=== PATIENT | female | born 1960 | race Caucasian/White ===

== ENCOUNTER 2017-12-07 18:48 | Inpatient (IN) | payer MEDICARE, OTHER, SELFPAY ==
[~2017-12-07] VITALS: Ht 165.1 cm; Wt 103.5 kg
[~2017-12-07 18:48] MED LIST: ALBU.083IS IH; ALBU90OI INH; AMIT10 PO; ANTOXYBENA OT; AZIT250 PO; BENZ100A PO; BUDE6HFA INH; CIPDEXSU OT; CLAR500 PO; CODACE30 PO; CRUTCH2 USE; CYMBALTA; Crutch1 EACH MISC; DOXY100 PO; DULO60 PO; ESTR.1TPW TOP; ESTR.9; ESTR.9 PO; FERR325 PO; FLUT110OIA IH; HCTZ PO; HYDACE10B PO; HYDACE5 PO; HYDACE5325 PO; HYDCHL25 PO; LITH300C PO; LOPE2C PO; MELO7.5 PO; NEBI5 PO; NITR100CA PO; Norco 5-325 Ta1 EACH PO; OLAN5 PO; OMEP10ER PO; OMEP20ER PO; OMEPRAZOLE MAGN20 MG PO; OXYACE5T PO; OXYB5 PO; OXYC10TA19 PO; PHENA200 PO; PRED20 PO; PROCODE120 PO; PROM25 PO; PSEU120ER PO; RANI150 PO; SIME80CH PO; TIOT18 INH; TRAM50 PO; ZOLP10 PO; [UNRECOGNIZED DRUG - OTHER]
[2017-12-07 20:04] LABS: BASOPHILS ABSOLUTE AUTO 0.03 K/mm3 (0.00-0.23); BASOPHILS PERCENT AUTO 0 % (0-2); EOSINOPHILS ABSOLUTE AUTO 0.03 K/mm3 (0.00-0.68); EOSINOPHILS PERCENT AUTO 0 % (0-6); Hematocrit 41.4 % (33.0-51.0); Hemoglobin 13.4 g/dL (11.5-16.0); IMMATURE GRAN ABSOLUTE AUTO 0.07 K/mm3 (0.00-0.10); IMMATURE GRAN PERCENT AUTO 1 % (0-1); LYMPHOCYTES ABSOLUTE AUTO 0.89 K/mm3 (0.84-5.20); LYMPHOCYTES PERCENT AUTO 7 % (21-46); MONOCYTES ABSOLUTE AUTO 0.78 K/mm3 (0.16-1.47); MONOCYTES PERCENT AUTO 6 % (4-13); Mean Corpuscular HGB 32.1 pg (26.0-34.0); Mean Corpuscular HGB Conc 32.4 g/dL (31.5-36.5); Mean Corpuscular Volume 99 fL (80-100); Mean Platelet Volume 10.1 fL (9.1-12.4); NEUTROPHILS ABSOLUTE AUTO 11.68 K/mm3 (1.96-9.15); NEUTROPHILS PERCENT AUTO 87 % (41-73); Platelet Count 232 K/mm3 (150-400); RDW Standard Deviation 50.9 fL (35.1-46.3); Red Blood Cell Count 4.17 M/mm3 (3.80-5.20); White Blood Cell Count 13.48 K/mm3 (4.00-11.30)
[2017-12-07 20:27] LABS: Alanine Aminotransfer (ALT/SGP 59 U/L (12-78); Albumin, Blood 3.8 g/dL (3.4-5.0); Albumin/Globulin Ratio 0.9 (0.8-1.8); Alk Phos 68 U/L (50-136); Anion Gap 11 mmol/L (6-16); Aspartate Aminotrans (AST/SGOT 39 U/L (12-37); Bilirubin, Total 0.4 mg/dL (0.1-1.0); Blood Urea Nitrogen 15 mg/dL (8-24); CO2, Blood 23 mmol/L (21-32); Chloride, Blood 103 mmol/L (98-108); Globulin, Blood 4.1 g/dL (2.2-4.0); Glomerular Filtration Rate >60 (60-); Glucose, Blood 130 mg/dL (70-99); Potassium, Blood 3.3 mmol/L (3.5-5.5); Sodium, Blood 137 mmol/L (136-145); Total Protein, Blood 7.9 g/dL (6.4-8.2); Troponin I 0.091 ng/mL (0.000-0.040)
[2017-12-07 22:00] LABS: Troponin I 0.093 ng/mL (0.000-0.040)
[2017-12-08 00:47] LABS: Source, Urine Clean Catch
[2017-12-08 00:52] LABS: Bilirubin, Urine Neg (Neg); Blood, Urine 1+ (Neg); Glucose Qualitative, Urine Neg (Neg); Ketones, Urine Neg (Neg); Leukocyte Esterase, Urine Neg (Neg); Nitrite, Urine Neg (Neg); Protein, Urine 2+ (Neg); Urobilinogen, Urine NORM (Normal)
[2017-12-08 00:58] LABS: Appearance, Urine Clear (Clear); Color, Urine Yellow (P-Yellow)
[2017-12-08 00:59] LABS: Bacteria Few /hpf; Red Blood Cells, Urine 0-2 /hpf (0-2); Squamous Epithelial Cells Not Seen /hpf (Few); White Blood Cells, Urine 0-2 /hpf (0-5)
[2017-12-08 01:03] LABS: U Amphetamine Screen Not Detected; U Barbituate Screen Not Detected; U Benzodiazapine Screen Not Detected; U Buprenorphine Screen Not Detected; U Cannabinoids Screen Not Detected; U Cocaine Screen Not Detected; U Methadone Screen Not Detected; U Methamphetamine Screen Not Detected; U Opiates Screen Not Detected; U Oxycodone Screen Not Detected; U Phencyclidine Screen Not Detected; U Propoxyphene Screen Not Detected
[2017-12-08 03:59] LABS: Hematocrit 41.2 % (33.0-51.0); Hemoglobin 13.6 g/dL (11.5-16.0); Mean Corpuscular HGB 32.4 pg (26.0-34.0); Mean Corpuscular Volume 98 fL (80-100); Mean Platelet Volume 9.9 fL (9.1-12.4); Platelet Count 210 K/mm3 (150-400); RDW Coefficient Variation 14.1 % (11.7-14.2); RDW Standard Deviation 50.8 fL (35.1-46.3); White Blood Cell Count 11.39 K/mm3 (4.00-11.30)
[2017-12-08 04:23] LABS: Alanine Aminotransfer (ALT/SGP 52 U/L (12-78); Albumin, Blood 3.8 g/dL (3.4-5.0); Alk Phos 62 U/L (50-136); Anion Gap 12 mmol/L (6-16); Aspartate Aminotrans (AST/SGOT 34 U/L (12-37); Bilirubin, Total 1.2 mg/dL (0.1-1.0); Blood Urea Nitrogen 14 mg/dL (8-24); Bun/Creatinine Ratio 14.2 (12.0-20.0); CO2, Blood 24 mmol/L (21-32); CPK Creatine Kinase 108 U/L (26-193); Calcium, Blood 8.4 mg/dL (8.5-10.1); Chloride, Blood 101 mmol/L (98-108); Creatinine, Blood 0.99 mg/dL (0.40-1.00); Globulin, Blood 3.8 g/dL (2.2-4.0); Glomerular Filtration Rate >60 (60-); Glucose, Blood 137 mg/dL (70-99); Potassium, Blood 3.6 mmol/L (3.5-5.5); Sodium, Blood 137 mmol/L (136-145); Total Protein, Blood 7.6 g/dL (6.4-8.2)
[2017-12-08 04:24] LABS: Troponin I 0.082 ng/mL (0.000-0.040)
[2017-12-09 08:24] LABS: BASOPHILS ABSOLUTE AUTO 0.03 K/mm3 (0.00-0.23); BASOPHILS PERCENT AUTO 0 % (0-2); EOSINOPHILS ABSOLUTE AUTO 0.04 K/mm3 (0.00-0.68); EOSINOPHILS PERCENT AUTO 0 % (0-6); IMMATURE GRAN ABSOLUTE AUTO 0.04 K/mm3 (0.00-0.10); IMMATURE GRAN PERCENT AUTO 0 % (0-1); LYMPHOCYTES ABSOLUTE AUTO 0.99 K/mm3 (0.84-5.20); LYMPHOCYTES PERCENT AUTO 9 % (21-46); MONOCYTES ABSOLUTE AUTO 0.88 K/mm3 (0.16-1.47); MONOCYTES PERCENT AUTO 8 % (4-13); Mean Corpuscular HGB 33.2 pg (26.0-34.0); Mean Corpuscular HGB Conc 33.3 g/dL (31.5-36.5); Mean Corpuscular Volume 100 fL (80-100); Mean Platelet Volume 10.1 fL (9.1-12.4); NEUTROPHILS ABSOLUTE AUTO 9.21 K/mm3 (1.96-9.15); NEUTROPHILS PERCENT AUTO 82 % (41-73); Platelet Count 208 K/mm3 (150-400); RDW Coefficient Variation 13.5 % (11.7-14.2); RDW Standard Deviation 49.5 fL (35.1-46.3); Red Blood Cell Count 3.92 M/mm3 (3.80-5.20); White Blood Cell Count 11.19 K/mm3 (4.00-11.30)
[2017-12-09 08:40] LABS: Bun/Creatinine Ratio 22.6 (12.0-20.0); Calcium, Blood 8.7 mg/dL (8.5-10.1); Creatinine, Blood 1.06 mg/dL (0.40-1.00); Potassium, Blood 3.5 mmol/L (3.5-5.5)
[2017-12-10 05:27] LABS: BASOPHILS ABSOLUTE AUTO 0.02 K/mm3 (0.00-0.23); BASOPHILS PERCENT AUTO 0 % (0-2); EOSINOPHILS ABSOLUTE AUTO 0.04 K/mm3 (0.00-0.68); EOSINOPHILS PERCENT AUTO 1 % (0-6); Hemoglobin 11.6 g/dL (11.5-16.0); IMMATURE GRAN ABSOLUTE AUTO 0.04 K/mm3 (0.00-0.10); IMMATURE GRAN PERCENT AUTO 1 % (0-1); LYMPHOCYTES ABSOLUTE AUTO 1.28 K/mm3 (0.84-5.20); LYMPHOCYTES PERCENT AUTO 19 % (21-46); MONOCYTES PERCENT AUTO 12 % (4-13); Mean Corpuscular HGB 32.9 pg (26.0-34.0); Mean Corpuscular HGB Conc 33.1 g/dL (31.5-36.5); Mean Corpuscular Volume 99 fL (80-100); Mean Platelet Volume 10.3 fL (9.1-12.4); NEUTROPHILS ABSOLUTE AUTO 4.66 K/mm3 (1.96-9.15); NEUTROPHILS PERCENT AUTO 68 % (41-73); Platelet Count 197 K/mm3 (150-400); RDW Coefficient Variation 13.2 % (11.7-14.2); RDW Standard Deviation 47.6 fL (35.1-46.3); Red Blood Cell Count 3.53 M/mm3 (3.80-5.20); White Blood Cell Count 6.84 K/mm3 (4.00-11.30)
[2017-12-10 05:54] LABS: Bun/Creatinine Ratio 27.6 (12.0-20.0); Calcium, Blood 8.2 mg/dL (8.5-10.1); Creatinine, Blood 1.05 mg/dL (0.40-1.00); Potassium, Blood 3.2 mmol/L (3.5-5.5)
[2017-12-10 21:21] LABS: Creatine Kinase MB 1.6 ng/mL (0.0-3.6); Creatine Kinase MB Index 2.2 (0.0-4.0); Troponin I 0.048 ng/mL (0.000-0.040)
[2017-12-11 05:37] LABS: BASOPHILS ABSOLUTE AUTO 0.02 K/mm3 (0.00-0.23); BASOPHILS PERCENT AUTO 0 % (0-2); EOSINOPHILS ABSOLUTE AUTO 0.05 K/mm3 (0.00-0.68); EOSINOPHILS PERCENT AUTO 1 % (0-6); Hemoglobin 12.7 g/dL (11.5-16.0); IMMATURE GRAN ABSOLUTE AUTO 0.04 K/mm3 (0.00-0.10); IMMATURE GRAN PERCENT AUTO 1 % (0-1); LYMPHOCYTES ABSOLUTE AUTO 1.47 K/mm3 (0.84-5.20); LYMPHOCYTES PERCENT AUTO 20 % (21-46); MONOCYTES ABSOLUTE AUTO 0.76 K/mm3 (0.16-1.47); MONOCYTES PERCENT AUTO 11 % (4-13); Mean Corpuscular HGB 32.8 pg (26.0-34.0); Mean Corpuscular HGB Conc 33.4 g/dL (31.5-36.5); Mean Corpuscular Volume 98 fL (80-100); Mean Platelet Volume 10.4 fL (9.1-12.4); NEUTROPHILS ABSOLUTE AUTO 4.92 K/mm3 (1.96-9.15); NEUTROPHILS PERCENT AUTO 68 % (41-73); Platelet Count 244 K/mm3 (150-400); RDW Coefficient Variation 13.3 % (11.7-14.2); RDW Standard Deviation 47.5 fL (35.1-46.3); Red Blood Cell Count 3.87 M/mm3 (3.80-5.20); White Blood Cell Count 7.26 K/mm3 (4.00-11.30)
[2017-12-11 05:53] LABS: Bun/Creatinine Ratio 27.2 (12.0-20.0); Calcium, Blood 8.6 mg/dL (8.5-10.1); Creatinine, Blood 1.03 mg/dL (0.40-1.00); Potassium, Blood 3.8 mmol/L (3.5-5.5)
[2017-12-12 05:43] LABS: Anion Gap 5 mmol/L (6-16); Blood Urea Nitrogen 24 mg/dL (8-24); Bun/Creatinine Ratio 23.5 (12.0-20.0); CO2, Blood 30 mmol/L (21-32); Calcium, Blood 8.5 mg/dL (8.5-10.1); Chloride, Blood 98 mmol/L (98-108); Creatinine, Blood 1.02 mg/dL (0.40-1.00); Glomerular Filtration Rate 59 (60-); Glucose, Blood 92 mg/dL (70-99); Phosphorus, Blood 3.1 mg/dL (2.5-4.9); Potassium, Blood 3.6 mmol/L (3.5-5.5); Sodium, Blood 133 mmol/L (136-145)
[2017-12-13 05:53] LABS: Albumin, Blood 3.3 g/dL (3.4-5.0); Anion Gap 6 mmol/L (6-16); Blood Urea Nitrogen 24 mg/dL (8-24); Bun/Creatinine Ratio 21.1 (12.0-20.0); CO2, Blood 31 mmol/L (21-32); Calcium, Blood 8.9 mg/dL (8.5-10.1); Chloride, Blood 98 mmol/L (98-108); Creatinine, Blood 1.14 mg/dL (0.40-1.00); Glomerular Filtration Rate 52 (60-); Glucose, Blood 96 mg/dL (70-99); Magnesium, Blood 2.2 mg/dL (1.6-2.4); Phosphorus, Blood 3.7 mg/dL (2.5-4.9); Sodium, Blood 135 mmol/L (136-145)
[2017-12-14 04:02] LABS: Albumin, Blood 3.1 g/dL (3.4-5.0); Anion Gap 7 mmol/L (6-16); Blood Urea Nitrogen 23 mg/dL (8-24); Bun/Creatinine Ratio 23.2 (12.0-20.0); CO2, Blood 31 mmol/L (21-32); Calcium, Blood 8.6 mg/dL (8.5-10.1); Chloride, Blood 101 mmol/L (98-108); Creatinine, Blood 0.99 mg/dL (0.40-1.00); Glomerular Filtration Rate >60 (60-); Glucose, Blood 94 mg/dL (70-99); Phosphorus, Blood 3.9 mg/dL (2.5-4.9); Potassium, Blood 4.1 mmol/L (3.5-5.5); Sodium, Blood 139 mmol/L (136-145)
[2017-12-14] MEDS ORDERED: ASPI81CH PO (10:45)
[2017-12-14] MEDS ORDERED: CARV25 PO (10:45)
[2017-12-14] MEDS ORDERED: GUAI600T33 PO (10:46)
[2017-12-14] MEDS ORDERED: FURO40 PO (10:48)
[2017-12-14] MEDS ORDERED: LOSA25 PO (10:48)
[2017-12-14] MEDS ORDERED: SPIR25 PO (10:49)
[2017-12-14] MEDS ORDERED: Nitrostat0.4 MG SL (10:50)
== END 2017-12-14 14:19 | disposition home or self-care (01) | DRG 287 ==
LOC: ER 18:48 → PCU 18:49 → MEDS 18:49 → PCU 22:41 → MEDS 12-09 13:03 → PCU 12-13 13:29
PROVIDERS: Emergency Medicine; Family Medicine; Internal Medicine; Nurse Practitioner Acute Care
PROC: B2111ZZ Fluoroscopy of Multiple Coronary Arteries using Low Osmolar Contrast (ICD-10-PCS; principal; 2017-12-13)
DX: I11.0 Hypertensive heart disease with heart failure (principal); J44.1 Chronic obstructive pulmonary disease with (acute) exacerbation; E87.1 Hypo-osmolality and hyponatremia; I47.2 Ventricular tachycardia; N17.9 Acute kidney failure, unspecified; I50.21 Acute systolic (congestive) heart failure; I42.0 Dilated cardiomyopathy; R09.1 Pleurisy; I20.9 Angina pectoris, unspecified; F17.210 Nicotine dependence, cigarettes, uncomplicated; R77.8 Other specified abnormalities of plasma proteins; I34.0 Nonrheumatic mitral (valve) insufficiency; E66.9 Obesity, unspecified; Z86.19 Personal history of other infectious and parasitic diseases; Z90.710 Acquired absence of both cervix and uterus; Z88.0 Allergy status to penicillin; Z79.899 Other long term (current) drug therapy; Z90.722 Acquired absence of ovaries, bilateral; Z68.35 Body mass index [BMI] 35.0-35.9, adult
CPT/HCPCS: 36415; 71046; 71260; 80048; 80053; 80069; 81001; 82550; 82553; 82728; 83605; 83735; 83880; 84145; 84443; 84484; 85025; 85027; 87040; 93005; 93010; 93454; 94640; 94660; 94760; 94762; 96374; 99152; 99153; 99285-25; C1769; C1894; C8923; J1160; J1644; J1650; J1940; J1956; J2250; J3010; J3480; J7030; J7040; Q9957; Q9967

== ENCOUNTER 2018-09-03 20:35 | Emergency (ER) | payer MEDICARE, OTHER ==
[~2018-09-03] VITALS: Ht 162.6 cm; Wt 98.9 kg
[~2018-09-03 20:35] MED LIST changes: +ALBU2.5V5 NEB; +ASPI81CH PO; +Coreg12.5 MG PO; +DULERA 200 MCG/13 GM INH; +FURO40 PO; +GUAI600T33 PO; +LOSA25 PO; +LOSA50 PO; +Nitrostat0.4 MG SL; +SPIR25 PO
[2018-09-03 21:38] LABS: BASOPHILS ABSOLUTE AUTO 0.04 K/mm3 (0.00-0.23); BASOPHILS PERCENT AUTO 0 % (0-2); EOSINOPHILS ABSOLUTE AUTO 0.03 K/mm3 (0.00-0.68); EOSINOPHILS PERCENT AUTO 0 % (0-6); Hematocrit 44.5 % (33.0-51.0); IMMATURE GRAN ABSOLUTE AUTO 0.03 K/mm3 (0.00-0.10); IMMATURE GRAN PERCENT AUTO 0 % (0-1); LYMPHOCYTES ABSOLUTE AUTO 1.91 K/mm3 (0.84-5.20); LYMPHOCYTES PERCENT AUTO 19 % (21-46); MONOCYTES ABSOLUTE AUTO 0.85 K/mm3 (0.16-1.47); MONOCYTES PERCENT AUTO 9 % (4-13); Mean Corpuscular HGB 32.3 pg (26.0-34.0); Mean Corpuscular HGB Conc 33.7 g/dL (31.5-36.5); Mean Corpuscular Volume 96 fL (80-100); Mean Platelet Volume 9.8 fL (9.1-12.4); NEUTROPHILS ABSOLUTE AUTO 6.99 K/mm3 (1.96-9.15); NEUTROPHILS PERCENT AUTO 71 % (41-73); Platelet Count 323 K/mm3 (150-400); RDW Coefficient Variation 13.1 % (11.7-14.2); RDW Standard Deviation 45.2 fL (35.1-46.3); Red Blood Cell Count 4.65 M/mm3 (3.80-5.20); White Blood Cell Count 9.85 K/mm3 (4.00-11.30)
[2018-09-03 22:06] LABS: Albumin, Blood 4.2 g/dL (3.4-5.0); Bilirubin, Total 0.8 mg/dL (0.1-1.0); Bun/Creatinine Ratio 11.9 (12.0-20.0); Calcium, Blood 9.5 mg/dL (8.5-10.1); Creatinine, Blood 1.09 mg/dL (0.40-1.00); Globulin, Blood 4.2 g/dL (2.2-4.0); Potassium, Blood 2.9 mmol/L (3.5-5.5); Total Protein, Blood 8.4 g/dL (6.4-8.2)
[2018-09-03] MEDS ORDERED: Vistaril25 MG PO (22:16)
== END 2018-09-03 22:20 | disposition home or self-care (01) ==
LOC: ER 20:35
PROVIDERS: Emergency Medicine
DX: E87.6 Hypokalemia (principal); F43.9 Reaction to severe stress, unspecified; F41.9 Anxiety disorder, unspecified; T50.2X5A Adverse effect of carbonic-anhydrase inhibitors, benzothiadiazides and other diuretics, initial encounter; F31.9 Bipolar disorder, unspecified; F90.9 Attention-deficit hyperactivity disorder, unspecified type; I10 Essential (primary) hypertension; Z87.891 Personal history of nicotine dependence
CPT/HCPCS: 36415; 70450; 80053; 84484; 85025; 94640; 99284-25

== ENCOUNTER 2019-09-04 16:32 | Emergency (ER) | payer MEDICARE, OTHER ==
[~2019-09-04] VITALS: Ht 165.1 cm; Wt 94.3 kg
[~2019-09-04 16:32] MED LIST changes: -ASPI81CH PO; +Aspir 8181 MG PO; -LOSA50 PO; +Vistaril25 MG PO
[2019-09-04 17:38] LABS: BASOPHILS ABSOLUTE AUTO 0.03 K/mm3 (0.00-0.23); BASOPHILS PERCENT AUTO 1 % (0-2); EOSINOPHILS PERCENT AUTO 2 % (0-6); Hemoglobin 10.9 g/dL (11.5-16.0); IMMATURE GRAN ABSOLUTE AUTO 0.03 K/mm3 (0.00-0.10); IMMATURE GRAN PERCENT AUTO 1 % (0-1); LYMPHOCYTES ABSOLUTE AUTO 1.61 K/mm3 (0.84-5.20); LYMPHOCYTES PERCENT AUTO 27 % (21-46); MONOCYTES ABSOLUTE AUTO 0.78 K/mm3 (0.16-1.47); MONOCYTES PERCENT AUTO 13 % (4-13); Mean Corpuscular Volume 109 fL (80-100); Mean Platelet Volume 9.9 fL (9.1-12.4); NEUTROPHILS ABSOLUTE AUTO 3.34 K/mm3 (1.96-9.15); NEUTROPHILS PERCENT AUTO 57 % (41-73); Platelet Count 163 K/mm3 (150-400); RDW Coefficient Variation 16.6 % (11.7-14.2); RDW Standard Deviation 65.2 fL (35.1-46.3); Red Blood Cell Count 3.03 M/mm3 (3.80-5.20); White Blood Cell Count 5.89 K/mm3 (4.00-11.30)
[2019-09-04 18:38] LABS: Alanine Aminotransfer (ALT/SGP 65 U/L (12-78); Albumin, Blood 2.9 g/dL (3.4-5.0); Anion Gap 4 mmol/L (6-16); Aspartate Aminotrans (AST/SGOT 126 U/L (12-37); Bilirubin, Total 1.6 mg/dL (0.1-1.0); Blood Urea Nitrogen 12 mg/dL (8-24); Bun/Creatinine Ratio 14.6 (12.0-20.0); CO2, Blood 31 mmol/L (21-32); Calcium, Blood 8.6 mg/dL (8.5-10.1); Chloride, Blood 98 mmol/L (98-108); Creatinine, Blood 0.82 mg/dL (0.40-1.00); Glomerular Filtration Rate >60 (60-); Glucose, Blood 82 mg/dL (70-99); Potassium, Blood 3.6 mmol/L (3.5-5.5); Sodium, Blood 133 mmol/L (136-145)
[2019-09-04 18:41] LABS: Albumin/Globulin Ratio 0.7 (0.8-1.8); Alk Phos 253 U/L (50-136); Globulin, Blood 4.2 g/dL (2.2-4.0); Total Protein, Blood 7.1 g/dL (6.4-8.2); Troponin I <0.015 ng/mL (0.000-0.040)
[2019-09-04] MEDS ORDERED: Citalopram HBr20 MG PO (18:53)
== END 2019-09-04 19:06 | disposition home or self-care (01) ==
LOC: ER 16:32
PROVIDERS: Physician Assistant
DX: M79.89 Other specified soft tissue disorders (principal); I11.0 Hypertensive heart disease with heart failure; I50.9 Heart failure, unspecified; F31.9 Bipolar disorder, unspecified; F90.9 Attention-deficit hyperactivity disorder, unspecified type; Z86.19 Personal history of other infectious and parasitic diseases; Z88.0 Allergy status to penicillin; Z79.82 Long term (current) use of aspirin; Z79.899 Other long term (current) drug therapy; Z87.891 Personal history of nicotine dependence
CPT/HCPCS: 36415; 71046; 80053; 83880; 84484; 85025; 93005; 93010; 96374; 99284-25; J1940

== ENCOUNTER 2019-09-11 10:21 | Emergency (ER) | payer MEDICARE, OTHER ==
[~2019-09-11] VITALS: Ht 165.1 cm; Wt 74.4 kg
[~2019-09-11 10:21] MED LIST changes: +Citalopram HBr20 MG PO; +Ventolin/Prove6.7 GM INH; +Vibramycin100 MG PO
[2019-09-11 11:08] LABS: Source, Urine Clean Catch
[2019-09-11 11:31] LABS: Bilirubin, Urine Neg (Neg); Blood, Urine Neg (Neg); Glucose Qualitative, Urine Neg (Neg); Ketones, Urine 1+ (Neg); Leukocyte Esterase, Urine Neg (Neg); Nitrite, Urine Neg (Neg); Protein, Urine Neg (Neg); Urobilinogen, Urine NORM (Normal); pH, Urine 6.5 (5.0-8.0)
[2019-09-11 11:33] LABS: Appearance, Urine Clear (Clear); Color, Urine Yellow (P-Yellow)
[2019-09-11 11:44] LABS: U Amphetamine Screen DETECTED; U Barbituate Screen Not Detected; U Benzodiazapine Screen Not Detected; U Buprenorphine Screen Not Detected; U Cannabinoids Screen Not Detected; U Cocaine Screen Not Detected; U Methadone Screen Not Detected; U Methamphetamine Screen DETECTED; U Opiates Screen Not Detected; U Oxycodone Screen Not Detected; U Phencyclidine Screen Not Detected; U Propoxyphene Screen Not Detected
== END 2019-09-11 13:42 | disposition home or self-care (01) ==
LOC: ER 10:21
PROVIDERS: Emergency Medicine
DX: R60.0 Localized edema (principal); F15.10 Other stimulant abuse, uncomplicated; F31.9 Bipolar disorder, unspecified; F90.9 Attention-deficit hyperactivity disorder, unspecified type; Z88.0 Allergy status to penicillin; Z79.82 Long term (current) use of aspirin; Z79.899 Other long term (current) drug therapy; Z79.2 Long term (current) use of antibiotics; I11.0 Hypertensive heart disease with heart failure; I50.22 Chronic systolic (congestive) heart failure; J44.9 Chronic obstructive pulmonary disease, unspecified; F17.200 Nicotine dependence, unspecified, uncomplicated
CPT/HCPCS: 81003; 99284

== ENCOUNTER 2020-01-15 15:44 | Emergency (ER) | payer MEDICARE, OTHER ==
[~2020-01-15] VITALS: Ht 165.1 cm; Wt 99.3 kg
[2020-01-15 16:12] LABS: BASOPHILS ABSOLUTE AUTO 0.03 K/mm3 (0.00-0.23); BASOPHILS PERCENT AUTO 0 % (0-2); EOSINOPHILS ABSOLUTE AUTO 0.05 K/mm3 (0.00-0.68); EOSINOPHILS PERCENT AUTO 1 % (0-6); Hematocrit 45.1 % (33.0-51.0); Hemoglobin 15.1 g/dL (11.5-16.0); IMMATURE GRAN ABSOLUTE AUTO 0.02 K/mm3 (0.00-0.10); IMMATURE GRAN PERCENT AUTO 0 % (0-1); LYMPHOCYTES ABSOLUTE AUTO 1.09 K/mm3 (0.84-5.20); LYMPHOCYTES PERCENT AUTO 14 % (21-46); MONOCYTES ABSOLUTE AUTO 0.59 K/mm3 (0.16-1.47); MONOCYTES PERCENT AUTO 8 % (4-13); Mean Corpuscular HGB 34.2 pg (26.0-34.0); Mean Corpuscular HGB Conc 33.5 g/dL (31.5-36.5); Mean Corpuscular Volume 102 fL (80-100); Mean Platelet Volume 9.9 fL (9.1-12.4); NEUTROPHILS ABSOLUTE AUTO 6.02 K/mm3 (1.96-9.15); NEUTROPHILS PERCENT AUTO 77 % (41-73); Platelet Count 223 K/mm3 (150-400); RDW Coefficient Variation 13.9 % (11.7-14.2); Red Blood Cell Count 4.42 M/mm3 (3.80-5.20)
[2020-01-15 16:33] LABS: Alanine Aminotransfer (ALT/SGP 77 U/L (12-78); Albumin, Blood 4.1 g/dL (3.4-5.0); Alk Phos 104 U/L (50-136); Anion Gap 9 mmol/L (6-16); Aspartate Aminotrans (AST/SGOT 89 U/L (12-37); Blood Urea Nitrogen 14 mg/dL (8-24); Bun/Creatinine Ratio 17.1 (12.0-20.0); CO2, Blood 28 mmol/L (21-32); Calcium, Blood 9.7 mg/dL (8.5-10.1); Chloride, Blood 102 mmol/L (98-108); Creatinine, Blood 0.82 mg/dL (0.40-1.00); Glomerular Filtration Rate >60 (60-); Glucose, Blood 150 mg/dL (70-99); Sodium, Blood 139 mmol/L (136-145); Total Protein, Blood 8.1 g/dL (6.4-8.2); Troponin I <0.015 ng/mL (0.000-0.040)
[2020-01-15 19:35] LABS: Source, Urine Clean Catch
[2020-01-15 19:41] LABS: Appearance, Urine Cloudy (Clear); Bilirubin, Urine Neg (Neg); Blood, Urine 3+ (Neg); Color, Urine Yellow (P-Yellow); Glucose Qualitative, Urine Neg (Neg); Ketones, Urine 1+ (Neg); Leukocyte Esterase, Urine 2+ (Neg); Nitrite, Urine Pos (Neg); Protein, Urine 3+ (Neg); Urobilinogen, Urine 1+ (Normal); pH, Urine 6.5 (5.0-8.0)
[2020-01-15 19:53] LABS: White Blood Cells, Urine TNTC /hpf (0-5)
[2020-01-15 19:54] LABS: Bacteria Many /hpf; Squamous Epithelial Cells Mod /hpf (Few)
== END 2020-01-15 20:52 | disposition home or self-care (01) ==
LOC: ER 15:44
PROVIDERS: Emergency Medicine
DX: R55 Syncope and collapse (principal); F31.9 Bipolar disorder, unspecified; I11.0 Hypertensive heart disease with heart failure; I50.9 Heart failure, unspecified; Z88.0 Allergy status to penicillin; Z79.82 Long term (current) use of aspirin; Z79.899 Other long term (current) drug therapy
CPT/HCPCS: 70450; 71046; 80053; 81001; 83880; 84484; 85025; 87077; 87086; 87186; 93005; 93010; 96374; 99285-25; J2405

== ENCOUNTER 2020-06-27 16:06 | Emergency (ER) | payer MEDICARE, OTHER ==
[~2020-06-27] VITALS: Ht 165.1 cm; Wt 80.7 kg
[2020-06-27 16:35] LABS: BASOPHILS ABSOLUTE AUTO 0.04 K/mm3 (0.00-0.23); BASOPHILS PERCENT AUTO 1 % (0-2); EOSINOPHILS ABSOLUTE AUTO 0.11 K/mm3 (0.00-0.68); EOSINOPHILS PERCENT AUTO 2 % (0-6); Hematocrit 42.2 % (33.0-51.0); Hemoglobin 13.9 g/dL (11.5-16.0); IMMATURE GRAN ABSOLUTE AUTO 0.04 K/mm3 (0.00-0.10); IMMATURE GRAN PERCENT AUTO 1 % (0-1); LYMPHOCYTES ABSOLUTE AUTO 1.41 K/mm3 (0.84-5.20); LYMPHOCYTES PERCENT AUTO 19 % (21-46); MONOCYTES ABSOLUTE AUTO 0.43 K/mm3 (0.16-1.47); MONOCYTES PERCENT AUTO 6 % (4-13); Mean Corpuscular HGB 35.1 pg (26.0-34.0); Mean Corpuscular HGB Conc 32.9 g/dL (31.5-36.5); Mean Corpuscular Volume 107 fL (80-100); Mean Platelet Volume 10.2 fL (9.1-12.4); NEUTROPHILS ABSOLUTE AUTO 5.52 K/mm3 (1.96-9.15); NEUTROPHILS PERCENT AUTO 73 % (41-73); Platelet Count 398 K/mm3 (150-400); RDW Coefficient Variation 12.7 % (11.7-14.2); RDW Standard Deviation 49.9 fL (35.1-46.3); Red Blood Cell Count 3.96 M/mm3 (3.80-5.20); White Blood Cell Count 7.55 K/mm3 (4.00-11.30)
[2020-06-27 16:53] LABS: Alanine Aminotransfer (ALT/SGP 37 U/L (12-78); Albumin, Blood 3.4 g/dL (3.4-5.0); Albumin/Globulin Ratio 0.8 (0.8-1.8); Alk Phos 109 U/L (50-136); Anion Gap 5 mmol/L (6-16); Aspartate Aminotrans (AST/SGOT 33 U/L (12-37); Bilirubin, Total 0.4 mg/dL (0.1-1.0); Blood Urea Nitrogen 12 mg/dL (8-24); Bun/Creatinine Ratio 15.1 (12.0-20.0); CO2, Blood 31 mmol/L (21-32); Calcium, Blood 9.2 mg/dL (8.5-10.1); Chloride, Blood 103 mmol/L (98-108); Globulin, Blood 4.2 g/dL (2.2-4.0); Glomerular Filtration Rate >60 (60-); Glucose, Blood 90 mg/dL (70-99); Potassium, Blood 3.6 mmol/L (3.5-5.5); Sodium, Blood 139 mmol/L (136-145); Total Protein, Blood 7.6 g/dL (6.4-8.2)
[2020-06-27] MEDS ORDERED: Cephalexin500 MG PO (17:44)
== END 2020-06-27 18:09 | disposition home or self-care (01) ==
LOC: ER 16:06
PROVIDERS: Physician Assistant
DX: R60.0 Localized edema (principal); I11.0 Hypertensive heart disease with heart failure; I50.9 Heart failure, unspecified; F17.200 Nicotine dependence, unspecified, uncomplicated; Z88.0 Allergy status to penicillin; Z79.899 Other long term (current) drug therapy; Z79.82 Long term (current) use of aspirin
CPT/HCPCS: 36415; 80053; 83880; 85025; 99283

== ENCOUNTER 2020-08-19 10:45 | Emergency (ER) | payer MEDICARE, OTHER ==
[~2020-08-19] VITALS: Ht 165.1 cm; Wt 90.7 kg
[~2020-08-19 10:45] MED LIST changes: +Cephalexin500 MG PO
[2020-08-19] MEDS ORDERED: [UNRECOGNIZED DRUG - OTHER] (11:13)
[2020-08-19 11:46] LABS: BASOPHILS ABSOLUTE AUTO 0.04 K/mm3 (0.00-0.23); BASOPHILS PERCENT AUTO 1 % (0-2); EOSINOPHILS ABSOLUTE AUTO 0.04 K/mm3 (0.00-0.68); EOSINOPHILS PERCENT AUTO 1 % (0-6); Hematocrit 41.9 % (33.0-51.0); Hemoglobin 14.6 g/dL (11.5-16.0); IMMATURE GRAN ABSOLUTE AUTO 0.01 K/mm3 (0.00-0.10); IMMATURE GRAN PERCENT AUTO 0 % (0-1); LYMPHOCYTES ABSOLUTE AUTO 1.02 K/mm3 (0.84-5.20); LYMPHOCYTES PERCENT AUTO 33 % (21-46); MONOCYTES ABSOLUTE AUTO 0.38 K/mm3 (0.16-1.47); MONOCYTES PERCENT AUTO 12 % (4-13); Mean Corpuscular HGB 34.8 pg (26.0-34.0); Mean Corpuscular HGB Conc 34.8 g/dL (31.5-36.5); Mean Corpuscular Volume 100 fL (80-100); Mean Platelet Volume 10.2 fL (9.1-12.4); NEUTROPHILS ABSOLUTE AUTO 1.58 K/mm3 (1.96-9.15); NEUTROPHILS PERCENT AUTO 52 % (41-73); Platelet Count 126 K/mm3 (150-400); RDW Coefficient Variation 13.3 % (11.7-14.2); RDW Standard Deviation 49.7 fL (35.1-46.3); Red Blood Cell Count 4.19 M/mm3 (3.80-5.20); White Blood Cell Count 3.07 K/mm3 (4.00-11.30)
[2020-08-19 12:12] LABS: Alanine Aminotransfer (ALT/SGP 413 U/L (12-78); Albumin, Blood 3.7 g/dL (3.4-5.0); Albumin/Globulin Ratio 1.1 (0.8-1.8); Alk Phos 116 U/L (50-136); Anion Gap 12 mmol/L (6-16); Aspartate Aminotrans (AST/SGOT 784 U/L (12-37); Bilirubin, Total 1.7 mg/dL (0.1-1.0); Blood Urea Nitrogen 3 mg/dL (8-24); Bun/Creatinine Ratio 4.9 (12.0-20.0); CO2, Blood 23 mmol/L (21-32); Calcium, Blood 8.3 mg/dL (8.5-10.1); Chloride, Blood 94 mmol/L (98-108); Creatinine, Blood 0.61 mg/dL (0.40-1.00); Globulin, Blood 3.5 g/dL (2.2-4.0); Glomerular Filtration Rate >60 (60-); Glucose, Blood 99 mg/dL (70-99); Potassium, Blood 3.5 mmol/L (3.5-5.5); Sodium, Blood 129 mmol/L (136-145); Total Protein, Blood 7.2 g/dL (6.4-8.2)
[2020-08-19 12:27] LABS: Source, Urine Catheter
[2020-08-19 12:36] LABS: Appearance, Urine Clear (Clear); Bilirubin, Urine Neg (Neg); Blood, Urine Neg (Neg); Color, Urine Yellow (P-Yellow); Glucose Qualitative, Urine Neg (Neg); Ketones, Urine Neg (Neg); Leukocyte Esterase, Urine Neg (Neg); Nitrite, Urine Neg (Neg); Protein, Urine 1+ (Neg); Urobilinogen, Urine NORM (Normal)
== END 2020-08-19 14:40 | disposition home or self-care (01) ==
LOC: ER 10:45
PROVIDERS: Emergency Medicine
DX: K70.10 Alcoholic hepatitis without ascites (principal); F10.10 Alcohol abuse, uncomplicated; I10 Essential (primary) hypertension; F17.200 Nicotine dependence, unspecified, uncomplicated; Z88.0 Allergy status to penicillin
CPT/HCPCS: 36415; 71046; 74177; 80053; 83690; 85025; 96374-59; 99284-25; J2405; Q9967

== ENCOUNTER 2020-09-26 13:34 | Inpatient (IN) | payer MEDICARE, OTHER ==
[~2020-09-26] VITALS: Ht 162.6 cm; Wt 91.4 kg
[~2020-09-26 13:34] MED LIST changes: +[UNRECOGNIZED DRUG - OTHER]
[2020-09-26 14:20] LABS: BASOPHILS ABSOLUTE AUTO 0.03 K/mm3 (0.00-0.23); BASOPHILS PERCENT AUTO 0 % (0-2); EOSINOPHILS ABSOLUTE AUTO 0.06 K/mm3 (0.00-0.68); EOSINOPHILS PERCENT AUTO 1 % (0-6); Hematocrit 41.6 % (33.0-51.0); Hemoglobin 14.1 g/dL (11.5-16.0); IMMATURE GRAN ABSOLUTE AUTO 0.04 K/mm3 (0.00-0.10); IMMATURE GRAN PERCENT AUTO 1 % (0-1); LYMPHOCYTES ABSOLUTE AUTO 1.08 K/mm3 (0.84-5.20); LYMPHOCYTES PERCENT AUTO 15 % (21-46); MONOCYTES ABSOLUTE AUTO 0.51 K/mm3 (0.16-1.47); MONOCYTES PERCENT AUTO 7 % (4-13); Mean Corpuscular HGB 35.1 pg (26.0-34.0); Mean Corpuscular HGB Conc 33.9 g/dL (31.5-36.5); Mean Corpuscular Volume 104 fL (80-100); Mean Platelet Volume 9.9 fL (9.1-12.4); NEUTROPHILS ABSOLUTE AUTO 5.37 K/mm3 (1.96-9.15); NEUTROPHILS PERCENT AUTO 76 % (41-73); Platelet Count 251 K/mm3 (150-400); RDW Coefficient Variation 13.2 % (11.7-14.2); RDW Standard Deviation 51.1 fL (35.1-46.3); Red Blood Cell Count 4.02 M/mm3 (3.80-5.20); White Blood Cell Count 7.09 K/mm3 (4.00-11.30)
[2020-09-26 14:53] LABS: Alanine Aminotransfer (ALT/SGP 68 U/L (12-78); Albumin, Blood 3.2 g/dL (3.4-5.0); Albumin/Globulin Ratio 0.8 (0.8-1.8); Alk Phos 98 U/L (50-136); Anion Gap 12 mmol/L (6-16); Aspartate Aminotrans (AST/SGOT 94 U/L (12-37); Blood Urea Nitrogen 13 mg/dL (8-24); Bun/Creatinine Ratio 17.7 (12.0-20.0); CO2, Blood 22 mmol/L (21-32); Calcium, Blood 8.7 mg/dL (8.5-10.1); Chloride, Blood 89 mmol/L (98-108); Creatinine, Blood 0.74 mg/dL (0.40-1.00); Globulin, Blood 4.2 g/dL (2.2-4.0); Glomerular Filtration Rate >60 (60-); Glucose, Blood 106 mg/dL (70-99); Potassium, Blood 3.5 mmol/L (3.5-5.5); Sodium, Blood 123 mmol/L (136-145); Total Protein, Blood 7.4 g/dL (6.4-8.2); Troponin I 0.114 ng/mL (0.000-0.040)
[2020-09-26 15:07] LABS: Base Excess Venous -2.7 mmol/L; Bicarbonate Venous 22.6 mmol/L (24.0-30.0); PCO2 Venous 35.8 mmHg (38-42); PO2 Venous 116 mmHg (38-42)
[2020-09-26 15:50] LABS: Source, Urine Catheter
[2020-09-26 16:10] LABS: Appearance, Urine Clear (Clear); Blood, Urine Neg (Neg); Color, Urine Amber (P-Yellow); Glucose Qualitative, Urine Neg (Neg); Ketones, Urine 1+ (Neg); Leukocyte Esterase, Urine 1+ (Neg); Nitrite, Urine Neg (Neg); Protein, Urine 3+ (Neg); Urobilinogen, Urine 3+ (Normal)
[2020-09-26 16:21] LABS: Bilirubin, Urine 1+ (Neg)
[2020-09-26 16:22] LABS: Bacteria Many /hpf; Red Blood Cells, Urine 0-2 /hpf (0-2); Squamous Epithelial Cells Mod /hpf (Few)
[2020-09-26 16:59] LABS: U Amphetamine Screen Not Detected; U Barbituate Screen Not Detected; U Benzodiazapine Screen Not Detected; U Buprenorphine Screen Not Detected; U Cannabinoids Screen Not Detected; U Cocaine Screen Not Detected; U Methadone Screen Not Detected; U Methamphetamine Screen Not Detected; U Opiates Screen Not Detected; U Oxycodone Screen Not Detected; U Phencyclidine Screen Not Detected; U Propoxyphene Screen Not Detected
--- NOTE | 2020-09-26 19:34 | NUR ---
Pt arrived from the ED on stretcher, accompanied by Pili Diaz RN. Pt is dyspneic, diaphoretic, but conversant. Stated that she is worried and afraid about her diagnosis, about her heart, and about her future. Alert and oriented, talkative and asking a lot of questions. Pt was settled into bed, lung sounds noted very coarse, wheezing ausculated and noted audibly as well. Heart rhythm by telemetry is atrial fibrillation 120-130 bpm. Blood pressure is elevated. Peguero catheter is draining clear yellow urine and edema noted on her ankles and pretibial areas. Medications were given as ordered, as well as PRN metoprolol for her heart rate. Extensive time was also spent reviewing educational materials on heart failure, cardiomyopathy and the current treatment in the hospital. She states that she had a diagnosis of congestive heart failure 4 years ago and takes medications, but she does not know what they are. STates [place] [facility] [place]. Medication list from that pharmacy shows that last RX fill was in 2019. 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 Sat up in bed, ate a little bit of dinner, but states that she doesn't feel up to it because of her stress. She is still tachypneic as well, and a moist sounding non productive cough is occasionally noted. IV potassium is infusing into the Left AC IV at 25 cc/hour upon arrival from the ED, and it is painful, she states. NS started concurrently at 25 cc/hour with the potassium also infusing at 25 cc/hour to allow the pt to tolerate the infusion better.
--- NOTE | 2020-09-26 22:49 | NUR ---
HOSPITALIST NOTIFIED HR CONTINUES TO FLUCTUATE BETWEEN 120-150'S, PT DENIES CP/PRESSUR. HOSPITALIST NOTIFIED AT THIS TIME. 5 MG IV LOPRESSOR ORDERED NOW, 5 MG IN 30 MINUTES & 25 MG PO BID. DETAILS DISCUSSED WITH CEILING CLEANER.
[2020-09-27 03:42] LABS: BASOPHILS PERCENT AUTO 0 % (0-2); EOSINOPHILS PERCENT AUTO 0 % (0-6); Hematocrit 40.3 % (33.0-51.0); IMMATURE GRAN ABSOLUTE AUTO 0.02 K/mm3 (0.00-0.10); IMMATURE GRAN PERCENT AUTO 1 % (0-1); LYMPHOCYTES ABSOLUTE AUTO 0.37 K/mm3 (0.84-5.20); LYMPHOCYTES PERCENT AUTO 11 % (21-46); MONOCYTES ABSOLUTE AUTO 0.25 K/mm3 (0.16-1.47); MONOCYTES PERCENT AUTO 7 % (4-13); Mean Corpuscular HGB 35.2 pg (26.0-34.0); Mean Corpuscular HGB Conc 34.7 g/dL (31.5-36.5); Mean Corpuscular Volume 101 fL (80-100); NEUTROPHILS ABSOLUTE AUTO 2.83 K/mm3 (1.96-9.15); NEUTROPHILS PERCENT AUTO 82 % (41-73); Platelet Count 242 K/mm3 (150-400); RDW Standard Deviation 48.5 fL (35.1-46.3); Red Blood Cell Count 3.98 M/mm3 (3.80-5.20); White Blood Cell Count 3.47 K/mm3 (4.00-11.30)
[2020-09-27 04:12] LABS: Alanine Aminotransfer (ALT/SGP 68 U/L (12-78); Albumin, Blood 3.1 g/dL (3.4-5.0); Albumin/Globulin Ratio 0.8 (0.8-1.8); Alk Phos 90 U/L (50-136); Anion Gap 9 mmol/L (6-16); Aspartate Aminotrans (AST/SGOT 82 U/L (12-37); Bilirubin, Total 1.1 mg/dL (0.1-1.0); Blood Urea Nitrogen 21 mg/dL (8-24); Bun/Creatinine Ratio 24.1 (12.0-20.0); CO2, Blood 26 mmol/L (21-32); Calcium, Blood 8.6 mg/dL (8.5-10.1); Chloride, Blood 92 mmol/L (98-108); Creatinine, Blood 0.87 mg/dL (0.40-1.00); Globulin, Blood 4.1 g/dL (2.2-4.0); Glomerular Filtration Rate >60 (60-); Glucose, Blood 282 mg/dL (70-99); Potassium, Blood 3.9 mmol/L (3.5-5.5); Sodium, Blood 127 mmol/L (136-145); Total Protein, Blood 7.2 g/dL (6.4-8.2)
--- NOTE | 2020-09-27 06:46 | NUR ---
SHIFT SUMMARY PT HAS BEEN AWAKE MOST OF THE NIGHT DUE TO COUGHING, ANXIETY & SOB. IV LOPRESSOR WAS GIVEN PER EMAR, PO METOPROLOL PER EMAR. NOTIFIED THIS AM OF DUPLICATE METOPROLOL SUCCINATE ORDERS & THE PT'S SUSTAINED HR OF 115-140'S. 25 MG PO METOPROLOL TARTRATE BID WAS ORDERED TO BE STARTED THIS AM. PT REMAINS ON 2 L O2 VIA NC, SPO2 >94%. PT DENIES CP/PRESSURE. A ONE TIME DOSE OF 0.5 MG PO ATIVAN WAS GIVEN THROUGH THE NIGHT, THE PT TOLERATED THIS WITH NO PROBLEMS, SHE WAS ABLE TO REST COMFORTABLY FOR A FEW HOURS. ADDITIONAL LASIX WAS ALSO GIVEN PER HOSPITALIST ORDERS. APPROX 1600 ML'S OF URINE NOTED IN CATHETER. REPORT TO BE GIVEN TO DAY RN. PT IS ALERT, ORIENTED X4 & WATCHING TV THIS AM. CALL LIGHT IN REACH.
--- NOTE | 2020-09-27 10:07 | NUR ---
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 This morning she learned that he was in the ED.
--- NOTE | 2020-09-27 16:02 | NUR ---
Overall, she has been anxious this shift, moving around in bed and from bed to chair and back frequently. She keeps asking why she is having difficulty breathing. Frequent reminders about her heart condition and rapid heart rate. She was able to talk with her on the phone while he was in the ED before he was released back home. She describes having a lot of stress in her life, especially since she cares for her who is paraplegic and wheelchair bound. Lungs are still wheezy to auscultation but the audible wheezing noted this morning has decreased. Telemetry contiues to show atrial fibrillation rate 120s. Amiodarone gtt infusing at prescribed rate. No longer requiring oxygen to keep spo2 greater than 90%. C/O pain in her back, states that the bed is very uncomfortable. Assisted to recliner chair, and egg crate put on the bed to increase her comfort. Tylenol was given for relief of back pain, as well as ice pack to her back while she was up in the recliner.
--- NOTE | 2020-09-27 18:09 | NUR ---
She was given toradol for c/o ongoing back pain, which she states reduced her pain to a tolerable level. Her dyspnea is less, still has a barky occasional non productive cough, and expiratory wheezing. Atrial fibrillation persists, rate in 120s on amiodarone gttNisha quinn was dc'd and the pt has voided. She has been up to the bedside commode several times today passing small soft brown stools. Unable to do Echocardiogram today due to elevated heart rate. Plan is for Echo to be done in the morning, provided heart rate allows, and also for EKG. She has had a poor appetite, partly due to her dyspnea with activity, but also states that she hasn't been very hungry at home, either.
--- NOTE | 2020-09-28 00:27 | NUR ---
UPDATE RECEIVED A CALL FROM DR. RAMOS, UPDATED ON PATIENT'S CURRENT HEART RATE AND RHYTHM CONVERSION. NEW ORDERS RECEIVED.
[2020-09-28 05:16] LABS: BASOPHILS ABSOLUTE AUTO 0.01 K/mm3 (0.00-0.23); BASOPHILS PERCENT AUTO 0 % (0-2); EOSINOPHILS PERCENT AUTO 0 % (0-6); Hematocrit 41.1 % (33.0-51.0); Hemoglobin 14.2 g/dL (11.5-16.0); IMMATURE GRAN ABSOLUTE AUTO 0.04 K/mm3 (0.00-0.10); IMMATURE GRAN PERCENT AUTO 1 % (0-1); LYMPHOCYTES ABSOLUTE AUTO 0.44 K/mm3 (0.84-5.20); LYMPHOCYTES PERCENT AUTO 5 % (21-46); MONOCYTES ABSOLUTE AUTO 0.54 K/mm3 (0.16-1.47); MONOCYTES PERCENT AUTO 6 % (4-13); Mean Corpuscular HGB 35.2 pg (26.0-34.0); Mean Corpuscular HGB Conc 34.5 g/dL (31.5-36.5); Mean Corpuscular Volume 102 fL (80-100); Mean Platelet Volume 10.1 fL (9.1-12.4); NEUTROPHILS ABSOLUTE AUTO 7.61 K/mm3 (1.96-9.15); NEUTROPHILS PERCENT AUTO 88 % (41-73); Platelet Count 266 K/mm3 (150-400); RDW Standard Deviation 48.9 fL (35.1-46.3); Red Blood Cell Count 4.03 M/mm3 (3.80-5.20); White Blood Cell Count 8.64 K/mm3 (4.00-11.30)
[2020-09-28 05:32] LABS: Bun/Creatinine Ratio 25.7 (12.0-20.0); Calcium, Blood 9.5 mg/dL (8.5-10.1); Creatinine, Blood 1.48 mg/dL (0.40-1.00); Potassium, Blood 4.5 mmol/L (3.5-5.5)
--- NOTE | 2020-09-28 06:14 | NUR ---
SHIFT SUMMARY PT WAS ABLE TO SLEEP WELL THROUGH THE NIGHT. SHE REMAINS ON RA. PT CONVERTED TO NSR @ APPROX 1900 09/27/20, HR REMAINED IN THE 80'S THROUGH THE NIGHT. AMIODARONE GTT CONTINUES TO INFUSE, DIGOXIN INFUSED PER EMAR. PT HAS DENIED CP/PRESSURE. EKG COMPLETED THIS AM. FAMILY UPDATED VIA TELEPHONE WITH PT'S CONSENT. PT IS AWAKE ALERT & ORIENTED THIS AM WATCHING TV IN BED, CALL LIGHT IN REACH. BED ALARM IS ON FOR SAFETY. PT HAS NOT BEEN CONFUSED BUT SHE IS IMPULSIVE & DOES NOT APPEAR TO REMEMBER THE SEVERITY OF HER CONDITION WHILE MOVING AROUND & DOES NOT CALL FOR HELP AT TIMES. TM
[2020-09-28 08:47] LABS: International Normalized Ratio 1.82
--- NOTE | 2020-09-28 10:35 | NUR ---
Echocardiogram completed.
--- NOTE | 2020-09-28 17:49 | NUR ---
PT'S AMIO OFF AT 0840; HEPARIN DRIP INITIATED AT 1000 AT 13 UNITS/KG/HR WITH A DOSING WEIGHT OF 70KG; NEW PIV STARTED IN R HAND AT 1030 PER PT REQUEST IN ADDITION TO POWERGLIDE; PT REPEATEDLY BECAME SOB WHEN UP TO BATHROOM; THROAT LOZENGES AND STEROIDS ADMINISTERED PER JUN; PT HAD BARKY COUGH AND ANXIETY; DR. RASMUSSEN CALLED AT 1424 ABOUT PT'S DIFFICULTY EXPECTORATING SPUTUM; ORDER PROVIDED FOR GUAIFENESIN; DR. RASMUSSEN CALLED AT 1658 ABOUT PT'S CONTINUING SOB IN SPITE OF INHALED RX AND ANXIETY; ORDER PROVIDED FOR ALPRAZOLAM; ALPRAZOLAM ADMINISTERED AT 1800 PER MAR; PT DENIES ADDITIONAL CONCERNS AT THIS TIME
[2020-09-29 01:50] LABS: Bun/Creatinine Ratio 40.2 (12.0-20.0); Calcium, Blood 8.9 mg/dL (8.5-10.1); Creatinine, Blood 1.02 mg/dL (0.40-1.00); Potassium, Blood 4.4 mmol/L (3.5-5.5)
--- NOTE | 2020-09-29 04:45 | NUR ---
NOTIFIED FOR PATIENT'S CONSISTENTLY ELEVATED BP, LATEST 171/109. ALSO NOTED HER NA THIS AM OF 123. WILL DEFER SODIUM MAINTENANCE TO DAY TEAM. PUTTING IN PRN FOR BP. VSS. PATIENT RESTING COMFORTABLY IN BED. WILL CONTINUE TO MONITOR.
--- NOTE | 2020-09-29 05:36 | NUR ---
SHIFT SUMMARY* PATIENT FOUND TO BE A PLEASANT LADY WHO IS A&OX4. ANXIETY MUCH IMPROVED WITH HELP OF PRN XANAX GIVEN AND THERAPEUTIC COMMUNICATION. RELAXING HELPS PATIENT BREATH BETTER ALSO. ON RA SATING LOW 90'S. SOB WITH EXERTION AND TACHYPENIC AT TIMES. ENCOURAGING IS AND GUAFENISIN STARTED Q6H. GREATLY HELPING WITH BARKY COUGH. NSR IN THE 80'S. BP ELEVATED, HAD BEEN ALL DAY AND MD INFORMED OF LATEST BP 171/109 AND PRN HYDRALAZINE ADDED FOR SBP > 160 AND GIVEN. REFUSED DINNER D/T NAUSEA. PRN ATIVAN ADDED FOR NAUSEA D/T PATIENT PROLONGED QTC. GOOD RELIEF WITH THIS. UP WITH STAND BY ASSIST TO BEDSIDE COMMODE. HEPARIN INFUSING PER ORDER, SUBTHERAPEUTIC AT THIS TIME. NO PAIN NOTED. WILL CONTINUE TO MONITOR UNTIL REPORT GIVEN TO ARNEL PEREZ.
--- NOTE | 2020-09-29 10:21 | NUR ---
PT ALERT AND ORIENTED X4. HARD TO UNDERSTAND AT TIMES. ANSWERING QUESTIONS APPROPRIATLY. ON ROOM AIR SATING ABOVE 92%. OCCASIONAL COUGH THAT IS HARSH SOUNDING. PT STATES AT TIMES SHE IS COUGHING UP THICK, BROWN SPUTUM. SOB WITH EXERTION. AUDIBLE EXPIRATORY WHEEZE HEARD THROUGHOUT. TELE SHOWING SINUS WITH HR 90'S. VITAL SIGNS STABLE WITH ELEVATED BP. NEW ORDERS THIS AM. DENIES NUMBNESS/TINGLING. MINIMAL EDEMA IN BILATERAL LOWER EXTREMITIES. BOWEL TONES HEARD. PERIPHERAL PULSES STRONG. USING BSC WITH SBA FOR SAFETY. HEPARIN INFUSING. DARYN POWERGLIDE. CALL LIGHT IN REACH. WILL CONTINUE TO MONITOR.
--- NOTE | 2020-09-29 12:48 | NUR ---
Spiritual visit conducted. Patient is sittingon the EOB and alert. Patient tells me about her fears and uncertainties connected to her medical problems. She talks at length about her family history, the family unit complications and the success of her two daughters (One lives here and is a recent hire at [employer] and one is a physical therapist in [place].). Patient also describes her Muslim Jehovah'S Witness demetria and deep meaning her spirituality has for her in the midst of illness. I normalize patient's experience, reinforce helpful attitudes and practices and provide spiritual guidance, anxiety containment and prayer. Patient responds well and shows signs of reduced anxiety and fear. I will continue to encourage patient in self-care and drawing from her early foundations to find the peace she desires.
[2020-09-29 13:21] LABS: Thyroid Stimulating Hormone 3.74 uIU/mL (0.360-4.800)
--- NOTE | 2020-09-29 14:24 | NUR ---
DR. RAMOS IN TO SEE PT THIS AFTERNOON. EKG DONE. PLAN FOR ICD PLACEMENT TOMORROW. SEE ORDERS FOR PRE PROCEDURE. BARKY/HARSH COUGH CONTINUES. PT COMPLAINS OF SORE THROAT, LOZENGES PROVIDED PER EMAR WITH RELIEF. PT UP IN RECLINER FOR AFTERNOON AND MEALS. BACK IN BED AT THIS TIME SLEEPING. DR. LOPEZ IN TO CONSULT FOR NEPHROLOGY, FLUID RESTRICTION IN PLACE. WILL CONTINUE TO MONITOR.
--- NOTE | 2020-09-29 14:50 | NUR ---
CALL FROM [facility], ABOUT COVID VACCINTATION. CONFIRMED PT HAS BEEN VACCINATED WITH BOTH SHOTS. LAST SHOT WAS ON 07/08/2020. VERIFICATION PRINTED OFF AND PLACED IN CHART.
--- NOTE | 2020-09-29 15:41 | NUR ---
PT SLEEPING IN ROOM. VERY SWEATY. VITAL SIGNS STABLE, ORAL TEMP CHECKED AND WNL. BED BATH OFFERED, PT DENIES AT THIS TIME. GOWN CHANGED, FAN IN PLACE AND COLD TOWEL TO FOREHEAD.
--- NOTE | 2020-09-29 18:40 | NUR ---
SHIFT SUMMARY: NO ACUTE CHANGES, PT SITTING ON EDGE OF BED EATING DINNER. HEPARIN INFUSING. PT DENIES NEEDS AT THIS TIME. CONTINUES TO COUGH AND HAVE YELLOW/BROWN TINGED SPUTUM. PT STATES SHE IS OVERALL FEELING VERY TIRED. VITAL SIGNS STABLE. REMAINS IN SINUS WITH HR 90'S. DENIES CHEST PAIN/PRESSURE. WILL CONTINUE TO MONITOR AND REPORT OFF.
[2020-09-29 21:15] LABS: Potassium, Blood 4.4 mmol/L (3.5-5.5)
--- NOTE | 2020-09-29 21:22 | NUR ---
DR. LOPEZ CALLED WITH 2100 LAB RESULTS PER REQUEST. NA 127 AND K 4.4. 20MG IV LASIX X1 ORDERED. WILL CONTINUE TO MONITOR.
[2020-09-30 02:42] LABS: BASOPHILS ABSOLUTE AUTO 0.01 K/mm3 (0.00-0.23); BASOPHILS PERCENT AUTO 0 % (0-2); EOSINOPHILS PERCENT AUTO 0 % (0-6); Hematocrit 37.8 % (33.0-51.0); Hemoglobin 13.3 g/dL (11.5-16.0); IMMATURE GRAN ABSOLUTE AUTO 0.05 K/mm3 (0.00-0.10); IMMATURE GRAN PERCENT AUTO 1 % (0-1); LYMPHOCYTES ABSOLUTE AUTO 0.26 K/mm3 (0.84-5.20); LYMPHOCYTES PERCENT AUTO 4 % (21-46); MONOCYTES ABSOLUTE AUTO 0.36 K/mm3 (0.16-1.47); MONOCYTES PERCENT AUTO 6 % (4-13); Mean Corpuscular HGB 35.6 pg (26.0-34.0); Mean Corpuscular HGB Conc 35.2 g/dL (31.5-36.5); Mean Corpuscular Volume 101 fL (80-100); NEUTROPHILS ABSOLUTE AUTO 5.38 K/mm3 (1.96-9.15); NEUTROPHILS PERCENT AUTO 89 % (41-73); Platelet Count 239 K/mm3 (150-400); RDW Standard Deviation 48.4 fL (35.1-46.3); Red Blood Cell Count 3.74 M/mm3 (3.80-5.20); White Blood Cell Count 6.06 K/mm3 (4.00-11.30)
[2020-09-30 03:00] LABS: Albumin, Blood 3.1 g/dL (3.4-5.0); Anion Gap 9 mmol/L (6-16); Blood Urea Nitrogen 44 mg/dL (8-24); CO2, Blood 28 mmol/L (21-32); Calcium, Blood 8.5 mg/dL (8.5-10.1); Chloride, Blood 90 mmol/L (98-108); Creatinine, Blood 0.94 mg/dL (0.40-1.00); Glomerular Filtration Rate >60 (60-); Glucose, Blood 191 mg/dL (70-99); Magnesium, Blood 2.1 mg/dL (1.6-2.4); Phosphorus, Blood 3.9 mg/dL (2.5-4.9); Potassium, Blood 3.7 mmol/L (3.5-5.5); Sodium, Blood 127 mmol/L (136-145)
--- NOTE | 2020-09-30 05:21 | NUR ---
SHIFT SUMMARY PATIENT A&OX4. GARBLED SPEECH AND FORGETFUL AT TIMES. APPEARS DROWSY AND REQUESTING TO BE LEFT TO REST. VSS. NSR ON THE MONITOR. NO CP. ON RA SATING LOW 90'S. TOLERATING CARDIAC DEIT WITH NO NAUSEA. UP WITH ONE ARMANI TO BSC. NPO SINCE 0000 FOR PROCEDURE TODAY. IV HEPARIN AND FLUIDS INFUSING PER ORDER. NO ACUTE CONCERNS AT THIS TIME. WILL CONTINUE TO MONITOR UNTIL REPORT GIVEN TO ARNEL PEREZ.
--- NOTE | 2020-09-30 19:43 | NUR ---
PT ASSISTED WITH SHOWER; LABS DRAWN VIA MIDLINE CATHETER PER ORDERS; HEPARIN PLACED ON STANDBY AT 0832 FOR PROCEDURE AND PHARMACY NOTIFIED; VANCOMYCIN ADMINISTERED EN ROUTE TO HEART CENTER; PT LEFT AT 1400 VIA BED ACCOMPANIED BY RN X2 WITH TELEMETRY MONITORING, NO OXYGEN, AND NO IV INFUSIONS; PT RETURNED AT 1602 VIA BED ACCOMPANIED BY RN X2 WITH TELEMETRY MONITORING; IV INFUSION OF NS REINITIATED PER MAR; PT PLACED ON 2LNC FOR SATURATIONS 87-90%, AFTERWARD SATTING 93-95%; PT'S SKIN COLOR PREPROCEDURE HAD BEEN SEVERELY TARA AND PT REPORTED FATIGUE; AFTER PROCEDURE PT'S SKIN WAS APPROPRIATE FOR ETHNICITY WITH GOOD PULSES AND CAP REFILLS; PT RECOVERED IN ROOM; PT VOIDED IN BEDPAN 1X; PT'S DAUGHTER CALLED FOR UPDATES AT 1840 AND REPORTED NO FURTHER QUESTIONS; PT DENIES ADDITIONAL CONCERNS AT THIS TIME
[2020-10-01 04:32] LABS: BASOPHILS ABSOLUTE AUTO 0.01 K/mm3 (0.00-0.23); BASOPHILS PERCENT AUTO 0 % (0-2); EOSINOPHILS PERCENT AUTO 0 % (0-6); Hematocrit 39.1 % (33.0-51.0); Hemoglobin 13.4 g/dL (11.5-16.0); IMMATURE GRAN ABSOLUTE AUTO 0.06 K/mm3 (0.00-0.10); IMMATURE GRAN PERCENT AUTO 1 % (0-1); LYMPHOCYTES ABSOLUTE AUTO 0.41 K/mm3 (0.84-5.20); LYMPHOCYTES PERCENT AUTO 5 % (21-46); MONOCYTES ABSOLUTE AUTO 0.92 K/mm3 (0.16-1.47); MONOCYTES PERCENT AUTO 11 % (4-13); Mean Corpuscular HGB 35.6 pg (26.0-34.0); Mean Corpuscular HGB Conc 34.3 g/dL (31.5-36.5); Mean Corpuscular Volume 104 fL (80-100); NEUTROPHILS ABSOLUTE AUTO 6.91 K/mm3 (1.96-9.15); NEUTROPHILS PERCENT AUTO 83 % (41-73); Platelet Count 216 K/mm3 (150-400); RDW Standard Deviation 49.2 fL (35.1-46.3); Red Blood Cell Count 3.76 M/mm3 (3.80-5.20); White Blood Cell Count 8.31 K/mm3 (4.00-11.30)
[2020-10-01 04:47] LABS: Anion Gap 4 mmol/L (6-16); Blood Urea Nitrogen 44 mg/dL (8-24); Bun/Creatinine Ratio 42.3 (12.0-20.0); CO2, Blood 33 mmol/L (21-32); Calcium, Blood 8.7 mg/dL (8.5-10.1); Chloride, Blood 93 mmol/L (98-108); Creatinine, Blood 1.04 mg/dL (0.40-1.00); Glomerular Filtration Rate 57 (60-); Glucose, Blood 147 mg/dL (70-99); Magnesium, Blood 2.4 mg/dL (1.6-2.4); Phosphorus, Blood 3.8 mg/dL (2.5-4.9); Potassium, Blood 3.7 mmol/L (3.5-5.5); Sodium, Blood 130 mmol/L (136-145)
--- NOTE | 2020-10-01 05:11 | NUR ---
SHIFT SUMMARY* PATIENT IS A&OX4.SLEPT WELL THROUGHOUT SHIFT. VSS. HR IN HIGH 50'S LOW 60'S ALL NIGHT. NO CP. ICD SITE TO LEFT CHEST C/D/I. PRESSURE DRESSING IN PLACE. ONLY MILD DISCOMFORT FOR PATIENT. LEFT ARM PRECAUTIONS REEDUCATED ON. ON 2L NC SATING LOW 90'S. TOLERATING CARDIAC DIET AND FLUID RESTRICTION WITHOUT ISSUE. VOIDING WELL IN BSC. UP IND IN ROOM. LOGAN IMPROVING. NO PAIN OR DISTRESS NOTED UPON ASSESSMENT. DISCUSSED THE NEED FOR HELP AT HOME WITH CARING FOR . PATIENT GRATEFUL FOR OFFER AND AGREED HELP IS MUCH NEEDED. SOCIAL WORK AND PALLIATIVE CONSULTS ALREADY IN PLACE TO HELP WITH THIS PLANNING. WILL CONTINUE TO MONITOR UNTIL REPORT GIVEN TO DAYSCASSIA PEREZ.
--- NOTE | 2020-10-01 08:38 | NUR ---
Pt seems sleepy this morning. Awakened for breathing tx and oral medications. Assisted OOB after placing sling on the left arm. Noted pressure dressing is still in place, clean, dry and intact. Able to stand, walk to chair and is sitting in chair having breakfast at this time, call light shown to pt at her right side. Requested her to call if she needs to get up to toilet, change position, or has other needs.
--- NOTE | 2020-10-01 08:57 | NUR ---
Late entry due to [employer] being down at time of visit. Pt resting in bed upon arrival. Pt denies pain and dyspnea at time of visit. Engaged in therapeutic discussion regarding advanced care planning. Pt reports living at home with her and she is his primary caregiver. Pt reports spouse has significant health issues including COPD and Liver Cancer. Educated Pt on current health issues including cardiac. Educated on disease process including trajectory of disease. Discussed the importance of routine conversations with PCP and cardioologist regarding her health conditions and developing plans for the future. Pt appears to have a low understanding and education was discussed in simple easy to understand communication. Provided easy to read pamphlet on CHF. Discussed the importance of complying with recommendations. Received verbal permission from Pt to contact her daughters Gely and Heather to discuss planning for the future and provide updates. Attempted to contact daughter Heather, voicemail is full and unable to leave message. Called and spoke with daughter Gely. Provided update and discussed consideration of family developing plans for the future for Pt. Provided gentle education on disease process. Gely reports currently out of town due to celebrating graduating nursing program. Gely reports plan to discuss with her sister and develop a plan including potential future care needs. Gely expresses appreciation of conversation. Spoke with Primary RN Abbie and discussed case. Palliative Care will remain available.
--- NOTE | 2020-10-01 09:29 | NUR ---
Dr. Pichardo here to see pt. He took off the pressure dressing, and gave the pt instructions of no showers for 3 days, daily dressing change application of non-adherent dressing and transparent tegederm for three days. AFter 3 days, daily shower and then dressing change as instructed. Restrictions on pushing. pulling, lifting and raising arm above shoulder level for 6 weeks. Pt verbalized understanding of the instructions.
--- NOTE | 2020-10-01 11:39 | NUR ---
Pt c/o chest feeling"off". Denies dizzyness. Vital signs taken, blood pressure stable, heart rate and spo2 WNL. Assisted out of chair to bed at her request. TUBE BENDER states that she was wide awake this morning at 6 am, but since around 7 am she has been very tired. Assisted to BSC twice this morning so far.
--- NOTE | 2020-10-01 11:40 | NUR ---
Sling in place since 0800 this morning before transfer to chair, and pt is frequently reminded not to use the left arm, except for gentle movements. Sign taped to her table as a reminder as she forgets frequently her limitations and instructions.
--- NOTE | 2020-10-01 13:07 | NUR ---
Pt doesn't seem like herself compared to Tuesday/Tuesday of last week. She has been very sleepy today, lacking energy, and napping when not in conversation with anyone. She has been moaning occasionally, but denies having pain. STates she just feels "Not very good at all". STates that she feels lightheaded, and like she is having trouble breathing. RR is 18, spo2 95% on room air. About an hour ago she became flushed in the face,, diaphoretic. Vital signs taken at this time. Lung sounds are unchanged from this morning assessment, which are fine inspiratory crackles in the bases, and an expiratory wheeze noted throughout. Heart sounds auscultated, regular rate and rhythm, corelate with palpated left radial pulse.
--- NOTE | 2020-10-01 13:15 | NUR ---
Call to Dr. Adkins to report pt's symptoms. He is in ICU, will be over to PCU soon.
--- NOTE | 2020-10-01 16:48 | NUR ---
Pt was sleeping very soundly at time of last vital sign check. AT this time, she is awake spontaneously, eating pudding, and asking for some ice water. STates that she is feeling about the same as this morning; however, she is less mildred and is more alert at this time.
--- NOTE | 2020-10-01 17:16 | NUR ---
Notified by PCT that the pt had itchy red welts. I saw them on her calves, thighs, and back. Call to Dr. Adkins to notify, and new orders recieved. Clindamycin was discontinued.
--- NOTE | 2020-10-02 02:52 | NUR ---
PATIENT HAS BEEN SLEEPING THROUGOUT THE SHIFT, THIS LN TOOK OVER CARE AT 1900 PATIENT HAS A REACTION TO ANTIBOITICS TODAY AND HAD BEEN GIVEN BENEDRYL. PATIENT WOKE UP AROUND 2330 HAD SOME WATER AND ICE CREAM. SITTING WITH HOB AT 30 DEGREE ANGLE WATCHING TV, ABLE TO MAKE NEEDS KNOWN, SLOW TO RESPOND WITH NON EYECONTACT AND FLAT AFFECT, WILL CONTINUE TO MONITOR PATIENT AND PROVIDE TEACHING FOR DC TOMORROW WHILE AWAKE AND ACTIVE.
[2020-10-02 07:14] LABS: Hematocrit 38.4 % (33.0-51.0); Hemoglobin 13.3 g/dL (11.5-16.0)
[2020-10-02 07:34] LABS: Magnesium, Blood 2.3 mg/dL (1.6-2.4)
[2020-10-02 07:35] LABS: Albumin, Blood 2.9 g/dL (3.4-5.0); Anion Gap 4 mmol/L (6-16); Blood Urea Nitrogen 36 mg/dL (8-24); Bun/Creatinine Ratio 43.4 (12.0-20.0); CO2, Blood 32 mmol/L (21-32); Calcium, Blood 8.4 mg/dL (8.5-10.1); Chloride, Blood 95 mmol/L (98-108); Creatinine, Blood 0.83 mg/dL (0.40-1.00); Glomerular Filtration Rate >60 (60-); Glucose, Blood 104 mg/dL (70-99); Potassium, Blood 3.8 mmol/L (3.5-5.5); Sodium, Blood 131 mmol/L (136-145)
[2020-10-02] MEDS ORDERED: TUMS500 MG PO (11:27)
[2020-10-02] MEDS ORDERED: COREG12.5 M1 PO (11:27)
--- NOTE | 2020-10-02 11:27 | NUR ---
Spiritual care visit conducted. Patient is sitting on the EOB and alert. Patient explains that she is feeling much better and will DC today. Patient emphasizes her concern over her son and the "bad path" that he is on. I provide therapeutic listening and prayer for patient and her son. Patient responds well and voices appreciation for the prayer.
[2020-10-02] MEDS ORDERED: FURO40 PO (11:28)
[2020-10-02] MEDS ORDERED: LEVSOD25 PO (11:29)
[2020-10-02] MEDS ORDERED: LISI5 PO (11:30)
[2020-10-02] MEDS ORDERED: PARO20 PO (11:31)
[2020-10-02] MEDS ORDERED: Prednisone10 MG PO (11:33)
[2020-10-02] MEDS ORDERED: XARELTO20 MG PO (11:34)
[2020-10-02] MEDS ORDERED: SPIR25 PO (11:35)
--- NOTE | 2020-10-02 12:28 | NUR ---
PT TO DISCHARGE HOME. PT AND NURSE WENT OVER DC INSTUCTIONS INCLUDING NEW MEDICATIONS . PT WAS URGED TO BE COMPLIANT WITH THEM. PT WAS INSTRUCTED ON DRESSING CHANGES AND HOW AND WHEN TO CHANGE THEM. ORAL AND WRITTEN INSTRUCTION WAS PROVIDED. APPOINTMENTS MADE AND PT WAS INFORMED OF THEM BOTH VERBALLY AND WRITTEN. RON WALLACE WAS CALLED BY THIS NURSE AND GIVEN THE DATES AND TIMES OF APPOINTMENTS. NURSE CALLED TAXI FOR PATIENT. IV AND POWERGLIDE REMOVED, NO SS OF INFECTION NOTED. PT TO BE WHEELED DOWN TO TAXI UPON ARRIVAL.
== END 2020-10-02 12:57 | disposition home or self-care (01) | DRG 226 ==
LOC: ER 13:34 → PCU 17:34
PROVIDERS: Emergency Medicine; Internal Medicine Cardiovascular Disease; Internal Medicine Nephrology; Physician Assistant; ADMIT Internal Medicine
PROC: 0JH608Z Insertion of Defibrillator Generator into Chest Subcutaneous Tissue and Fascia, Open Approach (ICD-10-PCS; principal; 2020-09-30)
PROC: 02HK3KZ Insertion of Defibrillator Lead into Right Ventricle, Percutaneous Approach (ICD-10-PCS; 2020-09-30)
DX: I13.0 Hypertensive heart and chronic kidney disease with heart failure and stage 1 through stage 4 chronic kidney disease, or unspecified chronic kidney disease (principal); I50.43 Acute on chronic combined systolic (congestive) and diastolic (congestive) heart failure; I21.4 Non-ST elevation (NSTEMI) myocardial infarction; J96.01 Acute respiratory failure with hypoxia; R04.2 Hemoptysis; E87.1 Hypo-osmolality and hyponatremia; E87.0 Hyperosmolality and hypernatremia; J44.1 Chronic obstructive pulmonary disease with (acute) exacerbation; I47.1 Supraventricular tachycardia; N17.9 Acute kidney failure, unspecified; F31.9 Bipolar disorder, unspecified; F90.9 Attention-deficit hyperactivity disorder, unspecified type; F17.210 Nicotine dependence, cigarettes, uncomplicated; J45.909 Unspecified asthma, uncomplicated; I42.8 Other cardiomyopathies; I45.6 Pre-excitation syndrome; I34.0 Nonrheumatic mitral (valve) insufficiency; I27.20 Pulmonary hypertension, unspecified; N18.30 Chronic kidney disease, stage 3 unspecified; E88.09 Other disorders of plasma-protein metabolism, not elsewhere classified; T50.1X5A Adverse effect of loop [high-ceiling] diuretics, initial encounter; T46.4X5A Adverse effect of angiotensin-converting-enzyme inhibitors, initial encounter; T36.4X5A Adverse effect of tetracyclines, initial encounter; G93.2 Benign intracranial hypertension; D63.1 Anemia in chronic kidney disease; L29.8 Other pruritus; L27.0 Generalized skin eruption due to drugs and medicaments taken internally; I48.0 Paroxysmal atrial fibrillation; T39.8X5A Adverse effect of other nonopioid analgesics and antipyretics, not elsewhere classified, initial encounter; E87.6 Hypokalemia; Z86.19 Personal history of other infectious and parasitic diseases; Z90.710 Acquired absence of both cervix and uterus; Z90.89 Acquired absence of other organs; Z98.890 Other specified postprocedural states; Z88.0 Allergy status to penicillin; Z79.82 Long term (current) use of aspirin; Z79.899 Other long term (current) drug therapy; Z71.41 Alcohol abuse counseling and surveillance of alcoholic; Z71.6 Tobacco abuse counseling; Z91.14 Patient's other noncompliance with medication regimen
CPT/HCPCS: 33249; 36415; 51702; 71045; 71260; 80048; 80053; 80069; 81001; 82803; 83735; 83880; 83930; 84132; 84145; 84295; 84436; 84443; 84481; 84484; 85014; 85018; 85025; 85379; 85610; 85730; 87086; 93005; 93010; 93306; 94640; 94667; 94668; 94760; 94762; 96365; 96367; 96375; 96376; 99152; 99153; 99285-25; A9270; C1722; C1751; C1781; C1894; C1895; C9113; J0282; J0360; J1160; J1200; J1644; J1650; J1885; J1940; J2060; J2250; J2930; J3010; J3370; J3480; J7030; J7040; J7050; J7060; J7512; Q9967

== ENCOUNTER 2021-04-20 14:08 | Inpatient (IN) | payer MEDICARE, OTHER ==
[~2021-04-20] VITALS: Ht 162.6 cm; Wt 86.4 kg
[~2021-04-20 14:08] MED LIST changes: +LACT PO; +LISI5 PO; +NOVAFERRUM125 MG/51 PO; +Prednisone10 MG PO; +TUMS500 MG PO; +VANCOMYCIN50 MG/1 ML PO
[2021-04-20 15:01] LABS: BASOPHILS ABSOLUTE AUTO 0.01 K/mm3 (0.00-0.23); BASOPHILS PERCENT AUTO 0 % (0-2); EOSINOPHILS ABSOLUTE AUTO 0.02 K/mm3 (0.00-0.68); EOSINOPHILS PERCENT AUTO 0 % (0-6); Hematocrit 31.9 % (33.0-51.0); Hemoglobin 11.8 g/dL (11.5-16.0); IMMATURE GRAN ABSOLUTE AUTO 0.03 K/mm3 (0.00-0.10); IMMATURE GRAN PERCENT AUTO 0 % (0-1); LYMPHOCYTES ABSOLUTE AUTO 0.92 K/mm3 (0.84-5.20); LYMPHOCYTES PERCENT AUTO 13 % (21-46); MONOCYTES PERCENT AUTO 4 % (4-13); Mean Corpuscular HGB 36.6 pg (26.0-34.0); Mean Corpuscular Volume 99 fL (80-100); Mean Platelet Volume 9.6 fL (9.1-12.4); NEUTROPHILS ABSOLUTE AUTO 5.63 K/mm3 (1.96-9.15); NEUTROPHILS PERCENT AUTO 82 % (41-73); Platelet Count 208 K/mm3 (150-400); RDW Coefficient Variation 14.5 % (11.7-14.2); RDW Standard Deviation 52.8 fL (35.1-46.3); Red Blood Cell Count 3.22 M/mm3 (3.80-5.20); White Blood Cell Count 6.91 K/mm3 (4.00-11.30)
[2021-04-20 15:17] LABS: Troponin I 0.024 ng/mL (0.000-0.040)
[2021-04-20 15:20] LABS: Albumin, Blood 2.3 g/dL (3.4-5.0); Albumin/Globulin Ratio 0.7 (0.8-1.8); Bilirubin, Total 1.9 mg/dL (0.1-1.0); Bun/Creatinine Ratio 20.9 (12.0-20.0); Calcium, Blood 7.6 mg/dL (8.5-10.1); Creatinine, Blood 1.34 mg/dL (0.40-1.00); Globulin, Blood 3.1 g/dL (2.2-4.0); Potassium, Blood 3.1 mmol/L (3.5-5.5); Total Protein, Blood 5.4 g/dL (6.4-8.2)
[2021-04-20 16:43] LABS: Influenza A, PCR NEGATIVE (NEGATIVE); Influenza B, PCR NEGATIVE (NEGATIVE); Resp Syncytial Virus, PCR NEGATIVE (NEGATIVE); SARS-Cov-2 (COVID-19) PCR, MMC NEGATIVE (NEGATIVE)
[2021-04-20 17:33] LABS: Bun/Creatinine Ratio 21.4 (12.0-20.0); Calcium, Blood 7.7 mg/dL (8.5-10.1); Creatinine, Blood 1.26 mg/dL (0.40-1.00); Potassium, Blood 3.5 mmol/L (3.5-5.5)
[2021-04-20 21:11] LABS: Campylobacter Sp Not Detected (NOT DETECT)
[2021-04-20 21:12] LABS: Adenovirus F 40/41 Not Detected (NOT DETECT); Astrovirus Not Detected (NOT DETECT); Cryptosporidium Not Detected (NOT DETECT); Cyclospora Cayetanensis Not Detected (NOT DETECT); E. Coli O157 Not Detected (NOT DETECT); Entamoeba Histolytica Not Detected (NOT DETECT); Enteroaggregative E. coli-EAEC Not Detected (NOT DETECT); Enteropathogenic E. coli-EPEC Not Detected (NOT DETECT); Enterotoxigenic E. coli-ETEC Not Detected (NOT DETECT); Giardia Lamblia Not Detected (NOT DETECT); Norovirus GI/GII Detected (NOT DETECT); Plesiomonas Shigelloides Not Detected (NOT DETECT); Rotavirus A Not Detected (NOT DETECT); Salmonella Sp Not Detected (NOT DETECT); Sapovirus Not Detected (NOT DETECT); Shiga Toxin-prod E. coli-STEC Not Detected (NOT DETECT); Shigella/Enteroin E. coli-EIEC Not Detected (NOT DETECT); Vibrio Cholerae Not Detected (NOT DETECT); Vibrio Sp Not Detected (NOT DETECT); Yersinia Enterocolitica Not Detected (NOT DETECT)
[2021-04-20 23:26] LABS: Bun/Creatinine Ratio 20.8 (12.0-20.0); Calcium, Blood 7.9 mg/dL (8.5-10.1); Creatinine, Blood 1.49 mg/dL (0.40-1.00); Potassium, Blood 2.9 mmol/L (3.5-5.5)
[2021-04-20 23:28] LABS: Stool Occult Blood Guaiac 1 Pos (Neg)
[2021-04-21 05:53] LABS: Hematocrit 30.7 % (33.0-51.0); Hemoglobin 11.1 g/dL (11.5-16.0); Mean Corpuscular HGB 36.5 pg (26.0-34.0); Mean Corpuscular HGB Conc 36.2 g/dL (31.5-36.5); Mean Corpuscular Volume 101 fL (80-100); Mean Platelet Volume 9.4 fL (9.1-12.4); Platelet Count 176 K/mm3 (150-400); RDW Coefficient Variation 14.8 % (11.7-14.2); RDW Standard Deviation 53.9 fL (35.1-46.3); Red Blood Cell Count 3.04 M/mm3 (3.80-5.20); White Blood Cell Count 4.73 K/mm3 (4.00-11.30)
[2021-04-21 06:12] LABS: Calcium, Blood 8.2 mg/dL (8.5-10.1); Creatinine, Blood 1.24 mg/dL (0.40-1.00); Potassium, Blood 3.3 mmol/L (3.5-5.5)
[2021-04-21 06:42] LABS: Magnesium, Blood 1.5 mg/dL (1.6-2.4); Thyroid Stimulating Hormone 1.63 uIU/mL (0.360-4.800)
[2021-04-21 12:01] LABS: Calcium, Blood 8.2 mg/dL (8.5-10.1); Creatinine, Blood 1.05 mg/dL (0.40-1.00); Potassium, Blood 3.2 mmol/L (3.5-5.5)
[2021-04-21 16:28] LABS: Albumin, Blood 2.6 g/dL (3.4-5.0); Anion Gap 10 mmol/L (6-16); Blood Urea Nitrogen 20 mg/dL (8-24); Bun/Creatinine Ratio 18.3 (12.0-20.0); CO2, Blood 24 mmol/L (21-32); Calcium, Blood 8.1 mg/dL (8.5-10.1); Chloride, Blood 90 mmol/L (98-108); Creatinine, Blood 1.09 mg/dL (0.40-1.00); Glomerular Filtration Rate 51 (60-); Glucose, Blood 131 mg/dL (70-99); Phosphorus, Blood 1.4 mg/dL (2.5-4.9); Potassium, Blood 3.2 mmol/L (3.5-5.5); Sodium, Blood 124 mmol/L (136-145)
[2021-04-21 19:43] LABS: Albumin, Blood 2.5 g/dL (3.4-5.0); Anion Gap 7 mmol/L (6-16); Blood Urea Nitrogen 15 mg/dL (8-24); Bun/Creatinine Ratio 16.6 (12.0-20.0); CO2, Blood 25 mmol/L (21-32); Calcium, Blood 8.1 mg/dL (8.5-10.1); Chloride, Blood 96 mmol/L (98-108); Creatinine, Blood 0.91 mg/dL (0.40-1.00); Glomerular Filtration Rate >60 (60-); Glucose, Blood 155 mg/dL (70-99); Phosphorus, Blood 1.1 mg/dL (2.5-4.9); Potassium, Blood 3.4 mmol/L (3.5-5.5); Sodium, Blood 128 mmol/L (136-145)
[2021-04-22 03:49] LABS: Albumin, Blood 2.5 g/dL (3.4-5.0); Anion Gap 6 mmol/L (6-16); Blood Urea Nitrogen 11 mg/dL (8-24); Bun/Creatinine Ratio 12.4 (12.0-20.0); CO2, Blood 27 mmol/L (21-32); Calcium, Blood 8.2 mg/dL (8.5-10.1); Chloride, Blood 100 mmol/L (98-108); Creatinine, Blood 0.89 mg/dL (0.40-1.00); Glomerular Filtration Rate >60 (60-); Glucose, Blood 88 mg/dL (70-99); Phosphorus, Blood 1.7 mg/dL (2.5-4.9); Potassium, Blood 3.7 mmol/L (3.5-5.5); Sodium, Blood 133 mmol/L (136-145)
[2021-04-22 11:46] LABS: Albumin, Blood 2.4 g/dL (3.4-5.0); Anion Gap 9 mmol/L (6-16); Blood Urea Nitrogen 7 mg/dL (8-24); Bun/Creatinine Ratio 9.7 (12.0-20.0); CO2, Blood 26 mmol/L (21-32); Calcium, Blood 8.1 mg/dL (8.5-10.1); Chloride, Blood 97 mmol/L (98-108); Creatinine, Blood 0.72 mg/dL (0.40-1.00); Glomerular Filtration Rate >60 (60-); Glucose, Blood 110 mg/dL (70-99); Phosphorus, Blood 2.7 mg/dL (2.5-4.9); Sodium, Blood 132 mmol/L (136-145)
[2021-04-22 19:54] LABS: Albumin, Blood 2.6 g/dL (3.4-5.0); Anion Gap 7 mmol/L (6-16); Blood Urea Nitrogen 6 mg/dL (8-24); Bun/Creatinine Ratio 8.4 (12.0-20.0); CO2, Blood 29 mmol/L (21-32); Calcium, Blood 8.4 mg/dL (8.5-10.1); Chloride, Blood 99 mmol/L (98-108); Creatinine, Blood 0.71 mg/dL (0.40-1.00); Glomerular Filtration Rate >60 (60-); Glucose, Blood 108 mg/dL (70-99); Phosphorus, Blood 2.2 mg/dL (2.5-4.9); Potassium, Blood 3.8 mmol/L (3.5-5.5); Sodium, Blood 135 mmol/L (136-145)
[2021-04-22] MEDS ORDERED: SPIR25 PO (20:17)
[2021-04-22] MEDS ORDERED: FURO40 PO (20:18)
[2021-04-22] MEDS ORDERED: LEVSOD25 PO (20:18)
[2021-04-22] MEDS ORDERED: XARELTO20 MG PO (20:18)
[2021-04-22] MEDS ORDERED: COREG12.5 M1 PO (20:18)
[2021-04-22] MEDS ORDERED: PAXIL40 M1 PO (20:19)
[2021-04-23 03:29] LABS: BASOPHILS ABSOLUTE AUTO 0.01 K/mm3 (0.00-0.23); BASOPHILS PERCENT AUTO 0 % (0-2); EOSINOPHILS ABSOLUTE AUTO 0.06 K/mm3 (0.00-0.68); EOSINOPHILS PERCENT AUTO 2 % (0-6); Hematocrit 30.6 % (33.0-51.0); Hemoglobin 10.4 g/dL (11.5-16.0); IMMATURE GRAN ABSOLUTE AUTO 0.03 K/mm3 (0.00-0.10); IMMATURE GRAN PERCENT AUTO 1 % (0-1); LYMPHOCYTES ABSOLUTE AUTO 1.11 K/mm3 (0.84-5.20); LYMPHOCYTES PERCENT AUTO 32 % (21-46); MONOCYTES ABSOLUTE AUTO 0.24 K/mm3 (0.16-1.47); MONOCYTES PERCENT AUTO 7 % (4-13); Mean Corpuscular HGB 36.5 pg (26.0-34.0); Mean Platelet Volume 10.4 fL (9.1-12.4); NEUTROPHILS ABSOLUTE AUTO 2.05 K/mm3 (1.96-9.15); NEUTROPHILS PERCENT AUTO 59 % (41-73); Platelet Count 120 K/mm3 (150-400); RDW Coefficient Variation 15.8 % (11.7-14.2); RDW Standard Deviation 62.4 fL (35.1-46.3); Red Blood Cell Count 2.85 M/mm3 (3.80-5.20)
[2021-04-23 03:31] LABS: Mean Corpuscular Volume 107 fL (80-100)
[2021-04-23 03:53] LABS: Albumin, Blood 2.4 g/dL (3.4-5.0); Anion Gap 8 mmol/L (6-16); Blood Urea Nitrogen 6 mg/dL (8-24); Bun/Creatinine Ratio 8.4 (12.0-20.0); CO2, Blood 27 mmol/L (21-32); Calcium, Blood 8.4 mg/dL (8.5-10.1); Chloride, Blood 102 mmol/L (98-108); Creatinine, Blood 0.72 mg/dL (0.40-1.00); Glomerular Filtration Rate >60 (60-); Glucose, Blood 88 mg/dL (70-99); Magnesium, Blood 1.8 mg/dL (1.6-2.4); Phosphorus, Blood 2.3 mg/dL (2.5-4.9); Potassium, Blood 4.6 mmol/L (3.5-5.5); Sodium, Blood 137 mmol/L (136-145)
[2021-04-23 11:53] LABS: Albumin, Blood 2.4 g/dL (3.4-5.0); Anion Gap 6 mmol/L (6-16); Blood Urea Nitrogen 4 mg/dL (8-24); Bun/Creatinine Ratio 5.4 (12.0-20.0); CO2, Blood 28 mmol/L (21-32); Calcium, Blood 8.1 mg/dL (8.5-10.1); Chloride, Blood 101 mmol/L (98-108); Creatinine, Blood 0.74 mg/dL (0.40-1.00); Glomerular Filtration Rate >60 (60-); Glucose, Blood 110 mg/dL (70-99); Phosphorus, Blood 3.2 mg/dL (2.5-4.9); Potassium, Blood 3.8 mmol/L (3.5-5.5); Sodium, Blood 135 mmol/L (136-145)
[2021-04-23] MEDS ORDERED: BENMENLOZ MT (15:30)
[2021-04-23] MEDS ORDERED: ONDA4ODT MM (15:30)
[2021-04-23] MEDS ORDERED: LOPE2C PO (15:30)
[2021-04-23] MEDS ORDERED: VISBIOME 112.51 EACH PO (15:30)
[2021-04-23] MEDS ORDERED: PROM25 PO (15:31)
== END 2021-04-23 16:35 | disposition home health service (06) | DRG 392 ==
LOC: ER 14:08 → MEDS 16:04
PROVIDERS: Emergency Medicine; Internal Medicine; ADMIT Internal Medicine
DX: A08.11 Acute gastroenteropathy due to Norwalk agent (principal); E87.1 Hypo-osmolality and hyponatremia; N17.9 Acute kidney failure, unspecified; I13.0 Hypertensive heart and chronic kidney disease with heart failure and stage 1 through stage 4 chronic kidney disease, or unspecified chronic kidney disease; I42.8 Other cardiomyopathies; I50.42 Chronic combined systolic (congestive) and diastolic (congestive) heart failure; F10.239 Alcohol dependence with withdrawal, unspecified; Z20.822 Contact with and (suspected) exposure to COVID-19; B18.2 Chronic viral hepatitis C; E83.42 Hypomagnesemia; E87.6 Hypokalemia; E83.39 Other disorders of phosphorus metabolism; E86.0 Dehydration; F31.9 Bipolar disorder, unspecified; J44.9 Chronic obstructive pulmonary disease, unspecified; Z68.35 Body mass index [BMI] 35.0-35.9, adult; E66.9 Obesity, unspecified; N18.30 Chronic kidney disease, stage 3 unspecified; K21.9 Gastro-esophageal reflux disease without esophagitis; I48.0 Paroxysmal atrial fibrillation; E03.9 Hypothyroidism, unspecified; Z71.6 Tobacco abuse counseling; F17.210 Nicotine dependence, cigarettes, uncomplicated; Z88.0 Allergy status to penicillin; Z88.1 Allergy status to other antibiotic agents; Z79.899 Other long term (current) drug therapy; Z79.01 Long term (current) use of anticoagulants; Z90.710 Acquired absence of both cervix and uterus; Z90.89 Acquired absence of other organs
CPT/HCPCS: 0097U; 0241U; 36415; 80048; 80053; 80069; 82272; 83690; 83735; 84443; 84484; 85025; 85027; 93005; 93010; 94760; 97116; 97162; 97165; 97530; 97535; 99285-25; A9270; J2405; J2550; J3475; J3480; J7030; J7060

== ENCOUNTER 2021-05-16 09:27 | Emergency (ER) | payer MEDICARE, OTHER ==
[~2021-05-16] VITALS: Ht 162.6 cm; Wt 90.7 kg
[~2021-05-16 09:27] MED LIST changes: +BENMENLOZ MT; +COREG12.5 M1 PO; +LEVSOD25 PO; +ONDA4ODT MM; +PAXIL40 M1 PO; +VISBIOME 112.51 EACH PO; +XARELTO20 MG PO
[2021-05-16 11:09] LABS: BASOPHILS ABSOLUTE AUTO 0.04 K/mm3 (0.00-0.23); BASOPHILS PERCENT AUTO 1 % (0-2); EOSINOPHILS ABSOLUTE AUTO 0.03 K/mm3 (0.00-0.68); EOSINOPHILS PERCENT AUTO 0 % (0-6); Hematocrit 39.6 % (33.0-51.0); Hemoglobin 13.7 g/dL (11.5-16.0); IMMATURE GRAN ABSOLUTE AUTO 0.02 K/mm3 (0.00-0.10); IMMATURE GRAN PERCENT AUTO 0 % (0-1); LYMPHOCYTES ABSOLUTE AUTO 1.69 K/mm3 (0.84-5.20); LYMPHOCYTES PERCENT AUTO 23 % (21-46); MONOCYTES ABSOLUTE AUTO 0.59 K/mm3 (0.16-1.47); MONOCYTES PERCENT AUTO 8 % (4-13); Mean Corpuscular HGB 36.2 pg (26.0-34.0); Mean Corpuscular HGB Conc 34.6 g/dL (31.5-36.5); Mean Corpuscular Volume 105 fL (80-100); NEUTROPHILS ABSOLUTE AUTO 5.01 K/mm3 (1.96-9.15); NEUTROPHILS PERCENT AUTO 68 % (41-73); Platelet Count 202 K/mm3 (150-400); RDW Standard Deviation 57.3 fL (35.1-46.3); Red Blood Cell Count 3.78 M/mm3 (3.80-5.20); White Blood Cell Count 7.38 K/mm3 (4.00-11.30)
[2021-05-16 11:22] LABS: Alanine Aminotransfer (ALT/SGP 41 U/L (12-78); Albumin, Blood 3.9 g/dL (3.4-5.0); Albumin/Globulin Ratio 1.1 (0.8-1.8); Alk Phos 111 U/L (50-136); Anion Gap 10 mmol/L (6-16); Aspartate Aminotrans (AST/SGOT 73 U/L (12-37); Bilirubin, Total 1.2 mg/dL (0.1-1.0); Blood Urea Nitrogen 6 mg/dL (8-24); Bun/Creatinine Ratio 7.5 (12.0-20.0); CO2, Blood 28 mmol/L (21-32); Calcium, Blood 8.4 mg/dL (8.5-10.1); Chloride, Blood 99 mmol/L (98-108); Globulin, Blood 3.7 g/dL (2.2-4.0); Glomerular Filtration Rate >60 (60-); Glucose, Blood 128 mg/dL (70-99); Potassium, Blood 2.9 mmol/L (3.5-5.5); Sodium, Blood 137 mmol/L (136-145); Total Protein, Blood 7.6 g/dL (6.4-8.2)
[2021-05-16 13:32] LABS: Source, Urine Clean Catch
[2021-05-16 13:37] LABS: Appearance, Urine Hazy (Clear); Bilirubin, Urine Neg (Neg); Blood, Urine 2+ (Neg); Color, Urine Yellow (P-Yellow); Glucose Qualitative, Urine Neg (Neg); Ketones, Urine 1+ (Neg); Leukocyte Esterase, Urine 2+ (Neg); Nitrite, Urine Neg (Neg); Protein, Urine 2+ (Neg); Urobilinogen, Urine 1+ (Normal)
[2021-05-16 13:51] LABS: Bacteria Many /hpf; Red Blood Cells, Urine 0-2 /hpf (0-2); Squamous Epithelial Cells Mod /hpf (Few)
[2021-05-16] MEDS ORDERED: Protonix40 MG PO (14:00)
[2021-05-16] MEDS ORDERED: K-Dur20 MEQ PO (14:10)
== END 2021-05-16 14:15 | disposition home or self-care (01) ==
LOC: ER 09:27
PROVIDERS: Anesthesiology; Emergency Medicine
DX: E87.6 Hypokalemia (principal); E83.42 Hypomagnesemia; R10.84 Generalized abdominal pain; F10.10 Alcohol abuse, uncomplicated; F17.210 Nicotine dependence, cigarettes, uncomplicated; I10 Essential (primary) hypertension; E03.9 Hypothyroidism, unspecified; I50.9 Heart failure, unspecified; I13.0 Hypertensive heart and chronic kidney disease with heart failure and stage 1 through stage 4 chronic kidney disease, or unspecified chronic kidney disease; N18.9 Chronic kidney disease, unspecified
CPT/HCPCS: 71045; 80053; 81001; 83735; 84484; 85025; 86850; 86900; 86901; 87086; 93005; 93010; 96365; 96375; 99284-25; A9270; G0480; J2405; J3475; J7120

== ENCOUNTER 2021-06-21 11:45 | Inpatient (IN) | payer MEDICARE, OTHER ==
[~2021-06-21] VITALS: Ht 165.1 cm; Wt 90.7 kg
[~2021-06-21 11:45] MED LIST changes: +K-Dur20 MEQ PO; +Protonix40 MG PO
[2021-06-21 12:15] LABS: BASOPHILS ABSOLUTE AUTO 0.01 K/mm3 (0.00-0.23); BASOPHILS PERCENT AUTO 0 % (0-2); EOSINOPHILS ABSOLUTE AUTO 0.02 K/mm3 (0.00-0.68); EOSINOPHILS PERCENT AUTO 0 % (0-6); Hemoglobin 11.9 g/dL (11.5-16.0); IMMATURE GRAN ABSOLUTE AUTO 0.03 K/mm3 (0.00-0.10); IMMATURE GRAN PERCENT AUTO 1 % (0-1); LYMPHOCYTES ABSOLUTE AUTO 1.08 K/mm3 (0.84-5.20); LYMPHOCYTES PERCENT AUTO 20 % (21-46); MONOCYTES ABSOLUTE AUTO 0.46 K/mm3 (0.16-1.47); MONOCYTES PERCENT AUTO 8 % (4-13); Mean Corpuscular HGB 38.1 pg (26.0-34.0); Mean Corpuscular HGB Conc 37.2 g/dL (31.5-36.5); Mean Corpuscular Volume 103 fL (80-100); Mean Platelet Volume 9.7 fL (9.1-12.4); NEUTROPHILS ABSOLUTE AUTO 3.87 K/mm3 (1.96-9.15); NEUTROPHILS PERCENT AUTO 71 % (41-73); NRBC ABSOLUTE 0.02 K/mm3 (0.00-0.02); NRBC Auto 0.4 /100 WBC (0.0-0.2); Platelet Count 151 K/mm3 (150-400); RDW Coefficient Variation 18.1 % (11.7-14.2); RDW Standard Deviation 66.4 fL (35.1-46.3); Red Blood Cell Count 3.12 M/mm3 (3.80-5.20); White Blood Cell Count 5.47 K/mm3 (4.00-11.30)
[2021-06-21 12:27] LABS: Ethanol (Alcohol), Blood, Med 233 mg/dL
[2021-06-21 12:29] LABS: Alanine Aminotransfer (ALT/SGP 124 U/L (12-78); Albumin, Blood 3.1 g/dL (3.4-5.0); Albumin/Globulin Ratio 0.9 (0.8-1.8); Alk Phos 127 U/L (50-136); Anion Gap 17 mmol/L (6-16); Aspartate Aminotrans (AST/SGOT 176 U/L (12-37); Blood Urea Nitrogen 6 mg/dL (8-24); Bun/Creatinine Ratio 12.1 (12.0-20.0); CO2, Blood 32 mmol/L (21-32); Calcium, Blood 7.9 mg/dL (8.5-10.1); Chloride, Blood 64 mmol/L (98-108); Globulin, Blood 3.6 g/dL (2.2-4.0); Glomerular Filtration Rate >60 (60-); Glucose, Blood 93 mg/dL (70-99); Potassium, Blood 2.8 mmol/L (3.5-5.5); Sodium, Blood 113 mmol/L (136-145); Total Protein, Blood 6.7 g/dL (6.4-8.2)
[2021-06-21 14:10] LABS: Source, Urine Straight Cath
[2021-06-21 14:13] LABS: Bilirubin, Urine Neg (Neg); Blood, Urine 3+ (Neg); Glucose Qualitative, Urine Neg (Neg); Ketones, Urine 3+ (Neg); Leukocyte Esterase, Urine 1+ (Neg); Nitrite, Urine Neg (Neg); Protein, Urine 2+ (Neg); Urobilinogen, Urine 1+ (Normal)
[2021-06-21 14:16] LABS: Osmolality, Serum 282 mos/KG (275-300)
[2021-06-21 14:33] LABS: U Amphetamine Screen Not Detected; U Barbituate Screen Not Detected; U Benzodiazapine Screen Not Detected; U Buprenorphine Screen Not Detected; U Cannabinoids Screen Not Detected; U Cocaine Screen Not Detected; U Methadone Screen Not Detected; U Methamphetamine Screen Not Detected; U Opiates Screen Not Detected; U Oxycodone Screen Not Detected; U Phencyclidine Screen Not Detected; U Propoxyphene Screen Not Detected
[2021-06-21 14:35] LABS: Appearance, Urine Hazy (Clear); Color, Urine Yellow (P-Yellow)
[2021-06-21 14:36] LABS: Amorphous Light (0-Heavy); Bacteria Many /hpf; Squamous Epithelial Cells Rare /hpf (Few); Yeast/Fungi Urine Rare /hpf
[2021-06-21 15:12] LABS: Anion Gap 15 mmol/L (6-16); Blood Urea Nitrogen 5 mg/dL (8-24); Bun/Creatinine Ratio 16.7 (12.0-20.0); CO2, Blood 24 mmol/L (21-32); Calcium, Blood 5.6 mg/dL (8.5-10.1); Chloride, Blood 88 mmol/L (98-108); Glomerular Filtration Rate >60 (60-); Glucose, Blood 64 mg/dL (70-99); Potassium, Blood 2.4 mmol/L (3.5-5.5); Sodium, Blood 127 mmol/L (136-145)
--- NOTE | 2021-06-21 16:02 | NUR ---
ASSUMED CARE OF PATIENT ED ADMIT 1445: AOX3 BUT CONFUSED ON SITUATION, FOLLOWS COMMANDS, PUPILS 3MM BRISK, DENIES P/N/V CURRENTLY, 3% SODIUM ON HOLD APPROVED BY FOR PERIPHERAL USE, NA 127 UP FROM 113 3% NOW DC, REPLACING ELECTROLYTES, GROIN/BUTTOCK EXCORIATED PICTURES OBTAINED, HARRY DRAINING ANMOL OUTPUT, WILL CONTINUE TO MONITOR.
[2021-06-21 18:16] LABS: Blood Urea Nitrogen 5 mg/dL (8-24); Bun/Creatinine Ratio 9.7 (12.0-20.0); CO2, Blood 30 mmol/L (21-32); Chloride, Blood 71 mmol/L (98-108); Creatinine, Blood 0.52 mg/dL (0.40-1.00); Glomerular Filtration Rate >60 (60-); Glucose, Blood 124 mg/dL (70-99); Potassium, Blood 2.9 mmol/L (3.5-5.5)
[2021-06-21 18:24] LABS: Anion Gap 8 mmol/L (6-16); Calcium, Blood 8.6 mg/dL (8.5-10.1); Sodium, Blood 109 mmol/L (136-145)
--- NOTE | 2021-06-21 18:43 | NUR ---
AOX3, FOLLOWS COMMANDS, SOME SHORT TERM MEMORY IMPAIRMENT, PASSED SWALLOW, TAKES MEDS WHOLE ON TIME W/ WATER, CLEAR LIQUID DIET ORDER, CIWA 4, NA LABILE 109-112, NA 3% ON/OFF CURRENTLY AT 30ML/HR, POTASSIUM LOW CURRENTLY 2.9 REPLACING K IV, CA LOW 5.6 REPLACED WITH CA GLUCONATE RECHECK 8.6, REPORT FROM ER QUIAC NEG, ABDOMEN NON TENDER OBESE HYPOACTIVE BOWELS, HARRY ANMOL/YELLOW OUTPUT LASIX PO GIVEN, LUNGS COARSE/EXP WHEEZES ON 4L NC, HTN ISSUES, LABETELOL ORDER CHANGED NOW 10-20MG, SKIN BL BRUISES UPPER ARMS/R HIP W/EXCORIATION GROIN/COCCYX DRESSING INITIATED, REPORT GIVEN TO NIGHT RN.
[2021-06-21 21:26] LABS: Anion Gap 18 mmol/L (6-16); Blood Urea Nitrogen 5 mg/dL (8-24); Bun/Creatinine Ratio 10.3 (12.0-20.0); CO2, Blood 33 mmol/L (21-32); Calcium, Blood 8.3 mg/dL (8.5-10.1); Chloride, Blood 67 mmol/L (98-108); Creatinine, Blood 0.49 mg/dL (0.40-1.00); Glomerular Filtration Rate >60 (60-); Glucose, Blood 196 mg/dL (70-99); Potassium, Blood 3.3 mmol/L (3.5-5.5); Sodium, Blood 118 mmol/L (136-145)
[2021-06-21 21:34] LABS: Magnesium, Blood 1.9 mg/dL (1.6-2.4); Thyroid Stimulating Hormone 1.82 uIU/mL (0.360-4.800); Uric Acid, Blood 9.8 mg/dL (2.6-6.0)
[2021-06-21 21:40] LABS: Phosphorus, Blood 3.4 mg/dL (2.5-4.9)
--- NOTE | 2021-06-22 02:25 | NUR ---
ASSUMED CARE: PT A/O X 3 AT START OF SHIFT, MEDINA, NAD, NO PAIN, STATES SHE FEELS ANXIOUS & DEPRESSED. STATES NO HX OF ETOH WD SZ, DRINKS A "VARYING" AMOUNT OF ALCOHOL EACH DAY, RECENTLY APPROX 3 BEERS PER DAY. ISN'T SURE WHY SHE IS IN THE HOSPITAL EXCEPT "SOMETHING IS WRONG WITH MY STOMACH". DOESN'T REMEMBER FALLING, BUT IS AWARE OF PAINFUL BRUISING ON LEGS. LUNGS COARSE/EXP WHEEZES, 4L NC NSR/ST 90S-110S, BP WNL, +2 PULSES THROUGHOUT, +2 PITTING EDEMA BLE, AFEBRILE HARRY PATENT, DARK YELLOW URINE LOOSE, BLACK STOOLS PER PT GTTS RUNNIN% NS @ 30, KCL UPDATED JOSIAS WHO IS HOME ON HOSPICE W/ CAREGIVER
--- NOTE | 2021-06-22 02:29 | NUR ---
WITNESSED GTC SEIZURE OCCURRED 06/21/21 @ 2043. 2MG ATIVAN IV GIVEN W/ TOTAL RESOLUTION OF SEIZURE ACTIVITY. MD NOTIFIED, STAT LABS DRAWN, 24H URINE COLLECTION STARTED. O2 INCREASED FROM 4LPM TO 8LPM. PT POSTICTAL & RESPONSIVE ONLY TO PAIN. PT AWAKE W/ INCONTINENCE OF DARK, LOOSE STOOL AT 0130. PT HALLUCINATING, ANXIOUS, PULLING AT LINES, C/O "I DON'T FEEL GOOD". ATIVAN FOR CIWA ORDERS PLACED PER MD. 2MG ATIVAN GIVEN FOR ETOH WD SYMPTOMS.
[2021-06-22 04:11] LABS: BASOPHILS PERCENT AUTO 0 % (0-2); EOSINOPHILS PERCENT AUTO 0 % (0-6); Hematocrit 30.3 % (33.0-51.0); Hemoglobin 10.9 g/dL (11.5-16.0); IMMATURE GRAN ABSOLUTE AUTO 0.02 K/mm3 (0.00-0.10); IMMATURE GRAN PERCENT AUTO 1 % (0-1); LYMPHOCYTES ABSOLUTE AUTO 0.38 K/mm3 (0.84-5.20); LYMPHOCYTES PERCENT AUTO 10 % (21-46); MONOCYTES PERCENT AUTO 8 % (4-13); Mean Corpuscular HGB 37.6 pg (26.0-34.0); Mean Corpuscular Volume 105 fL (80-100); Mean Platelet Volume 10.3 fL (9.1-12.4); NEUTROPHILS ABSOLUTE AUTO 3.03 K/mm3 (1.96-9.15); NEUTROPHILS PERCENT AUTO 81 % (41-73); Platelet Count 119 K/mm3 (150-400); RDW Coefficient Variation 18.4 % (11.7-14.2); RDW Standard Deviation 68.9 fL (35.1-46.3); White Blood Cell Count 3.73 K/mm3 (4.00-11.30)
[2021-06-22 04:31] LABS: Alanine Aminotransfer (ALT/SGP 137 U/L (12-78); Albumin, Blood 2.9 g/dL (3.4-5.0); Albumin/Globulin Ratio 0.9 (0.8-1.8); Alk Phos 111 U/L (50-136); Anion Gap 14 mmol/L (6-16); Aspartate Aminotrans (AST/SGOT 154 U/L (12-37); Bilirubin, Total 1.3 mg/dL (0.1-1.0); Blood Urea Nitrogen 7 mg/dL (8-24); Bun/Creatinine Ratio 12.9 (12.0-20.0); CO2, Blood 37 mmol/L (21-32); Calcium, Blood 8.6 mg/dL (8.5-10.1); Chloride, Blood 70 mmol/L (98-108); Creatinine, Blood 0.54 mg/dL (0.40-1.00); Globulin, Blood 3.4 g/dL (2.2-4.0); Glomerular Filtration Rate >60 (60-); Glucose, Blood 147 mg/dL (70-99); Magnesium, Blood 2.3 mg/dL (1.6-2.4); Phosphorus, Blood 3.5 mg/dL (2.5-4.9); Potassium, Blood 3.2 mmol/L (3.5-5.5); Sodium, Blood 121 mmol/L (136-145); Total Protein, Blood 6.3 g/dL (6.4-8.2)
[2021-06-22 07:55] LABS: Anion Gap 11 mmol/L (6-16); Blood Urea Nitrogen 7 mg/dL (8-24); Bun/Creatinine Ratio 13.9 (12.0-20.0); CO2, Blood 39 mmol/L (21-32); Calcium, Blood 8.8 mg/dL (8.5-10.1); Chloride, Blood 71 mmol/L (98-108); Creatinine, Blood 0.51 mg/dL (0.40-1.00); Ethanol (Alcohol), Blood, Med <3 mg/dL; Glomerular Filtration Rate >60 (60-); Glucose, Blood 119 mg/dL (70-99); Potassium, Blood 3.4 mmol/L (3.5-5.5); Sodium, Blood 121 mmol/L (136-145)
[2021-06-22 11:47] LABS: Anion Gap 10 mmol/L (6-16); Blood Urea Nitrogen 7 mg/dL (8-24); Bun/Creatinine Ratio 12.5 (12.0-20.0); CO2, Blood 39 mmol/L (21-32); Calcium, Blood 8.3 mg/dL (8.5-10.1); Chloride, Blood 72 mmol/L (98-108); Creatinine, Blood 0.56 mg/dL (0.40-1.00); Glomerular Filtration Rate >60 (60-); Glucose, Blood 134 mg/dL (70-99); Potassium, Blood 2.9 mmol/L (3.5-5.5); Sodium, Blood 121 mmol/L (136-145)
[2021-06-22 12:11] LABS: Hematocrit 28.6 % (33.0-51.0); Hemoglobin 10.1 g/dL (11.5-16.0)
[2021-06-22 12:28] LABS: Potassium, Blood 2.9 mmol/L (3.5-5.5)
[2021-06-22 13:10] LABS: Stool Occult Blood Guaiac 1 Pos (Neg)
--- NOTE | 2021-06-22 14:17 | NUR ---
MD LOPEZ PHONE CALL, DC Q4 BMPS, PLACE 1700 NA/K LABS, GIVE 2 10MEQ OF K/100ML BAGS PLUS 20MEQ K ELIXIR ONCE, COORDINATE NA/K WITH MD LOPEZ AND NOT RESIDENTS/MD GARCIAS.
--- NOTE | 2021-06-22 14:26 | NUR ---
ASSUMED CARE OF PATIENT 0700: AOX3, FOLLOWS COMMANDS, K REPLACING, NA IMPROVEMENT, ON 4L NC DENIES SOB, COARSE/EXP WHEEZE LUNGS, BP WNL, ST 100S, DENIES ABDOMINAL PAIN, HYPOACTIVE BOWELS, HARRY ANMOL OUTPUT COLLECTING 24HR UOP, WILL CONTINUE TO MONITOR.
[2021-06-22 17:38] LABS: Potassium, Blood 3.3 mmol/L (3.5-5.5)
[2021-06-22 19:11] LABS: Hematocrit 29.7 % (33.0-51.0); Hemoglobin 10.6 g/dL (11.5-16.0)
--- NOTE | 2021-06-22 19:43 | NUR ---
AOX3, FOLLOWS COMMANDS, NA 123-121, MANAGED WITH SALT TABS PER MD LOPEZ, K 2.7-3.3 MANAGED WITH IV K/PO ELIXIR K, NEEDS REORIENTATION FREQUENTLY, BP WNL, NSR/ST 90/100S, EDEMA BLE +1 IMPROVED WITH SCDS/LASIX, LUNGS REMAIN COARSE/EXP WHEEZES, ABLE TO TITRATE DOWN TO 2L NC, CONTINUED 24HR URINE COLLECTION ADEQUATE WITH LASIX, 2 SMALL TYPE 6/7 BM DARK, STOOL OCCULT +, H&H STABLE, DENIED HUNGER REFUSED MEALS, REPORT GIVEN TO NIGHT RN.
--- NOTE | 2021-06-22 20:40 | NUR ---
ASSUMED CARE: PT RESTING, EASILY AROUSABLE, A/OX4 BUT WITH TANGENTIAL & CONFUSED SPEECH, MEDINA. C/O "NOT FEELING WELL", NAUSEATED, LIGHT-HEADED, TREMULOUS, ANXIOUS. PT IN SINUS RHYTHM 80S, BPS STABLE, +1 PEDAL PULSES, +2 RADIAL PULSES. +2 PITTING EDEMA BLE. AFEBRILE. LUNGS VERY COARSE W/ PROMINENT EXPIRATORY WHEEZES. PRN ALBUTEROL INHALER GIVEN. PT ON 3L O2 NC W/ SATS >98- TURNED DOWN TO 2L O2 FOR NOW. WILL EVALUATE FOR PRN NEB IF NOT IMPROVED W/ INHALER. PT C/O NAUSEA & LOOSE STOOLS. ABLE TO SWALLOW PO TABLETS W/ WATER WITHOUT PROBLEM. HARRY IN PLACE, DRAINING ANMOL URINE. 24H URINE COLLECTION TO END AT 2100. RED, EXCORIATED AREA IN GROIN/COCCYX. GENERALIZED BRUISING FROM FALLS. PT BEDREST FOR NOW D/T WEAKNESS & TREMULOUSNESS.
[2021-06-22 21:17] LABS: Potassium, Blood 3.1 mmol/L (3.5-5.5)
[2021-06-23 02:59] LABS: BASOPHILS PERCENT AUTO 0 % (0-2); EOSINOPHILS ABSOLUTE AUTO 0.01 K/mm3 (0.00-0.68); EOSINOPHILS PERCENT AUTO 0 % (0-6); Hemoglobin 10.5 g/dL (11.5-16.0); IMMATURE GRAN ABSOLUTE AUTO 0.02 K/mm3 (0.00-0.10); IMMATURE GRAN PERCENT AUTO 0 % (0-1); LYMPHOCYTES ABSOLUTE AUTO 0.65 K/mm3 (0.84-5.20); LYMPHOCYTES PERCENT AUTO 14 % (21-46); MONOCYTES ABSOLUTE AUTO 0.35 K/mm3 (0.16-1.47); MONOCYTES PERCENT AUTO 8 % (4-13); Mean Corpuscular HGB 37.6 pg (26.0-34.0); Mean Corpuscular HGB Conc 33.9 g/dL (31.5-36.5); Mean Platelet Volume 9.9 fL (9.1-12.4); NEUTROPHILS ABSOLUTE AUTO 3.57 K/mm3 (1.96-9.15); NEUTROPHILS PERCENT AUTO 78 % (41-73); NRBC ABSOLUTE 0.02 K/mm3 (0.00-0.02); NRBC Auto 0.4 /100 WBC (0.0-0.2); Platelet Count 129 K/mm3 (150-400); RDW Coefficient Variation 19.3 % (11.7-14.2); RDW Standard Deviation 76.3 fL (35.1-46.3); Red Blood Cell Count 2.79 M/mm3 (3.80-5.20)
[2021-06-23 03:14] LABS: Mean Corpuscular Volume 111 fL (80-100)
[2021-06-23 03:17] LABS: Magnesium, Blood 1.8 mg/dL (1.6-2.4)
[2021-06-23 03:18] LABS: Alanine Aminotransfer (ALT/SGP 137 U/L (12-78); Albumin/Globulin Ratio 0.9 (0.8-1.8); Alk Phos 98 U/L (50-136); Anion Gap 10 mmol/L (6-16); Aspartate Aminotrans (AST/SGOT 127 U/L (12-37); Blood Urea Nitrogen 6 mg/dL (8-24); Bun/Creatinine Ratio 10.6 (12.0-20.0); CO2, Blood 41 mmol/L (21-32); Calcium, Blood 8.6 mg/dL (8.5-10.1); Chloride, Blood 77 mmol/L (98-108); Creatinine, Blood 0.57 mg/dL (0.40-1.00); Globulin, Blood 3.2 g/dL (2.2-4.0); Glomerular Filtration Rate >60 (60-); Glucose, Blood 102 mg/dL (70-99); Potassium, Blood 3.2 mmol/L (3.5-5.5); Sodium, Blood 128 mmol/L (136-145); Total Protein, Blood 6.2 g/dL (6.4-8.2)
--- NOTE | 2021-06-23 06:21 | NUR ---
SHIFT SUMMARY: PT C/O NAUSEA, TREMULOUSNESS, ANXIETY, GENERALIZED "NOT FEELING WELL", DIAPHORETIC- 2X 2MG ATIVAN IV GIVEN FOR CIWA SYMPTOMS. PT THEN SLEPT WELL, BUT IS IRRITABLE THIS MORNING AND REFUSING SOME CARES. STATES "I JUST WANT TO NAP- LEAVE ME ALONE!" AFEBRILE OVERNIGHT, SINUS RHYTHM W/ OCC PVCS RATE IN 90S. BPS WNL. O2 NC AT 2LPM. LUNGS VERY COARSE W/ INSPIRATORY & EXPIRATORY WHEEZES. PRN ALBUTEROL INHALER & PRN ALBUTEROL NEB GIVEN W/O SIGNIFICIANT EFFECT. MULTIPLE LARGE LIQUID STOOLS OVERNIGHT- BR0WN & MUCOUSY. HARRY IN PLACE- OLIGURIC OVERNIGHT. SKIN IN ERIC AREA & COCCYX VERY EXCORIATED & STARTING TO BLEED D/T FREQUENT WIPING W/ LOOSE STOOLS.
--- NOTE | 2021-06-23 07:34 | NUR ---
ASSUMED CARE. KOURTNEY IS SLEEPING COMFORTABLY. NO SIGNS OF DISTRESS NOTED. CURRENTLY VITALS ARE STABLE AND HOLDING. IN REVIEW OF ORDERS, NOTED NEW ORDERS FROM HOSPITALIST FOR KCL. CALLED DR. GARCIA TO INFORM THAT DR. LOPEZ IS MANAGING THE ELECTROLYTES AND HAS FOLLOW-UP LABS THROUGHOUT THE DAY. HE WILL BE PLACING THE ORDERS. SHE RESPONDED WITH DC HER ORDER.
--- NOTE | 2021-06-23 07:44 | NUR ---
SPOKE TO DR. LOPEZ IN REGARDS TO POTASSIUM MANAGMENET. NEW ORDER FOR INCREASE IN K-ELIXIR TO TWICE A DAY.
--- NOTE | 2021-06-23 11:00 | NUR ---
PATIENT WAS SLEEPING IN STOOL. SHE DID NOT WAKE UP TO CALL US TO LET US KNOW SHE HAD A BM. WITH SOME DISAGREEABLE GRUNTING, PARTIAL BED BATH WAS GIVEN. SHE DID NOT WANT TO CHANGE HER GOWN AT THIS TIME, BUT DID ALLOW FOR BARRIER CREAM AND BATHING.
[2021-06-23 11:23] LABS: Hematocrit 32.3 % (33.0-51.0); Hemoglobin 11.1 g/dL (11.5-16.0)
--- NOTE | 2021-06-23 12:10 | NUR ---
PATIENTS MOTHER IN LAW ARRIVED FOR A VISIT. KOURTNEY WAS SLEEPING AT FIRST BUT EVENTUALLY WOKE UP TO EAT LUNCH AND VISIT. STILL DROWSY, COOPERATIVE, AND DENY'S ANY OTHER NEEDS AT THIS TIME.
[2021-06-23 12:25] LABS: Potassium, Blood 3.1 mmol/L (3.5-5.5)
--- NOTE | 2021-06-23 13:00 | NUR ---
SPOKE WITH DR. ALLAN, DR. LOPEZ, AND CAGE CLERK DR. VEGAS IN REGARDS TO CLARFICATION OF ELECTROLYTE MANAGMENT. DR. ALLAN WAS ABLE TO SPEAK TO DR. LOPEZ TO COME UP WITH A PLAN ON HOW COMMUNICATION BETWEEN THE MANAGING DOCTORS AND NURSE STAFF. WAS INFORMED THAT NURSING STAFF TO CONTINUE COMMUNICATING WITH DR. LOPEZ REGARDING THE ELECTROLYES AND FOR ORDERS BUT WILL ALSO INFORM THE INTERNEST ON WHAT IS TO BE ORDERED TO PREVENT DUPLICATIONS. IF THERE IS AN EMERGENT ORDER OR CHANGE DR. LOPEZ AND INTERNEST WILL COMMUNICATE AMONG THEMSELVES.
--- NOTE | 2021-06-23 16:33 | NUR ---
COMPLETE BEDBATH GIVEN, BOTTOM STILL VERY EXCORIATED AND RED. SOME BLEEDING WHEN WIPING, BUT APPEARS TO BE A LITTLE BETTER LONG THE PATIENT CONTINUES TO LAY ON HER SIDE AND ALLOW FOR AIR. LINEN CHANGED. DAUGHTER CURRENTLY AT BEDSIDE.
[2021-06-23 17:20] LABS: Potassium, Blood 3.4 mmol/L (3.5-5.5)
--- NOTE | 2021-06-23 18:00 | NUR ---
DR. LOPEZ AND DR. VEGAS INFORMED OF RECENT LAB RESULTS FOR K+ AND NA. NEW ORDERS WERE OBTAINED FROM DR. LOPEZ. INFORMED DR. VEGAS WHICH I INFORMED OF CHANGE IN URINE, UA WAS ORDERED. SEE ORDERS.
--- NOTE | 2021-06-23 18:00 | NUR ---
PT CRYING OUT "I NEED HELP!" PT APPEARS VERY ANXIOUS CIWA 17-MED WITH ATIVAN 2 MG IVP X 1-SEE EMARNisha HALE, PRIMARY RN UPDATED.
[2021-06-23 18:49] LABS: Source, Urine Foley catheter
--- NOTE | 2021-06-23 18:53 | NUR ---
SHIFT SUMMARY: AOX2, FORGETFUL. HAS BEEN VERY SLEEPY ALL DAY UNABLE TO STAY AWAKE FOR LONG PERIODS OF TIME. CIWA'S WERE DIFFICULT TO ASSESS DUE TO DROWSINESS UNTIL SHE WOKE UP THIS EVENING AND C/O OF NOT FEELING GOOD. ATIVAN WAS GIVEN TO ASSIST WITH WITHDRAWL SYMPTOMS. ANXIOUSNESS AND AGITATION TENDS TO INCREASE THE ATIVAN WEARS OFF. TREMORS OFF AND ON TODAY. LUNG SOUNDS COARSE WITH INSPIRATORY WHEEZES, MOIST COUGH WITH INABILITY TO COUGH UP SECRETIONS. SATS ON 2L AVERAGE 94%. SINUS WITH FREQUENT PVC'S. NO CP. MADE MED W/ TELE AROUND 1300. INCONTIENT OF STOOL, FREQUENT LOOSE STOOLS, ORDER OBTAINED FROM DR. ELLIS FOR CDIFF ON NEXT STOOL. PASSED ON TO ORNITHOLOGY TEACHER. SKIN IS STILL VERY EXCORIATED WITH SOME BLEEDING WHEN CLEANING, BARRIER CREAM APPLIED PRN. HARRY REMAINED PATENT AND DRAINING, URINE HAS CHANGED THIS EVENING TO THICK MILKY WHITE. ORDER FOR UA RECEIVED, AND SENT. IV IN LEFT AC REMOVED R/T LEAKING, OTHER TWO ARE PATENT AND DRESSINGS WERE CHANGED. MULTIPLE DOCTORS ORDERS WERE OBTAINED AND COMMUNICATIONS, PLEASE SEE PRIOR NOTES TODAY. REPORT GIVEN TO ORNITHOLOGY TEACHER.
[2021-06-23 19:09] LABS: Bilirubin, Urine Neg (Neg); Blood, Urine 5+ (Neg); Glucose Qualitative, Urine Neg (Neg); Ketones, Urine 2+ (Neg); Leukocyte Esterase, Urine 3+ (Neg); Nitrite, Urine Pos (Neg); Protein, Urine 2+ (Neg); Urobilinogen, Urine 2+ (Normal)
[2021-06-23 19:12] LABS: Hemoglobin 11.2 g/dL (11.5-16.0)
[2021-06-23 19:24] LABS: Appearance, Urine Hazy (Clear); Color, Urine Pale Yellow (P-Yellow)
[2021-06-23 19:25] LABS: Red Blood Cells, Urine 25-50 /hpf (0-2); Squamous Epithelial Cells Few /hpf (Few)
[2021-06-23 19:26] LABS: Amorphous Light (0-Heavy); Bacteria Many /hpf
--- NOTE | 2021-06-23 19:59 | NUR ---
ASSUMED CARE: PT RESTING COMFORTABLY IN BED AT SHIFT CHANGE. A/O X SELF, LOCATION, SITUATION, BUT NOT DATE. OCCASIONALLY TALKING W/ EYES CLOSED TO SOMEONE WHO IS NOT PRESENT. MEDINA, MILDLY TREMULOUS. NAD. SAYS SHE FEELS "A LITTLE BETTER" AFTER HER RECENT DOSE OF ATIVAN. PERRLA. PT IN SINUS RHYTHM W/ OCC PVCS & SHORT RUNS OF BIGEMINY. BP WNL. PULSES +2 RADIAL, +1 PEDAL. PT WARM, MILDLY DIAPHORETIC. AFEBRILE. LUNG SOUNDS ARE COARSE W/ SIGNIFICANT INSPIRATORY & EXPIRATORY WHEEZES. PT CURRENTLY ON 1.5L O2 NC W/ SPO2 IN LOW-MID 90S. ABDOMEN DISTENDED, C/O LOOSE STOOLS THROUGHOUT THE DAY. NO N/V AT THIS TIME. HARRY IN PLACE DRAINING ANMOL, CLOUDY/MILKY URINE. SCATTERED BRUISING THROUGHOUT R/T PRIOR FALLS. COCCYX & ERIC-AREA RED, EXCORIATED, FRAGILE, BLEEDING.
[2021-06-23 22:07] LABS: Potassium, Blood 3.2 mmol/L (3.5-5.5)
[2021-06-24 00:02] LABS: C DIFFICILE DNA POSITIVE (Negative)
[2021-06-24 04:16] LABS: Hematocrit 32.9 % (33.0-51.0); Hemoglobin 11.2 g/dL (11.5-16.0)
[2021-06-24 04:31] LABS: Magnesium, Blood 1.7 mg/dL (1.6-2.4)
[2021-06-24 04:32] LABS: Alanine Aminotransfer (ALT/SGP 123 U/L (12-78); Albumin/Globulin Ratio 0.9 (0.8-1.8); Alk Phos 101 U/L (50-136); Anion Gap 7 mmol/L (6-16); Aspartate Aminotrans (AST/SGOT 97 U/L (12-37); Bilirubin, Total 0.9 mg/dL (0.1-1.0); Blood Urea Nitrogen 7 mg/dL (8-24); CO2, Blood 42 mmol/L (21-32); Calcium, Blood 9.1 mg/dL (8.5-10.1); Chloride, Blood 84 mmol/L (98-108); Creatinine, Blood 0.64 mg/dL (0.40-1.00); Globulin, Blood 3.4 g/dL (2.2-4.0); Glomerular Filtration Rate >60 (60-); Glucose, Blood 129 mg/dL (70-99); Phosphorus, Blood 1.8 mg/dL (2.5-4.9); Potassium, Blood 3.5 mmol/L (3.5-5.5); Sodium, Blood 133 mmol/L (136-145); Total Protein, Blood 6.4 g/dL (6.4-8.2)
--- NOTE | 2021-06-24 05:08 | NUR ---
SHIFT SUMMARY: PT SLEPT WELL THROUGHOUT THE NIGHT. MULTIPLE LIQUID STOOLS OVERNIGHT- STOOL SAMPLE SENT- CDIFF POS OLIGURIC
--- NOTE | 2021-06-24 07:36 | NUR ---
ASSUMPTION OF CARE RECEIVED REPORT FROM PREVIOUS RN, ASSUMED CARE OF PATIENT. PATIENT IN BED WITH EYES CLOSED, NO S/S OF DISTRESS. VITALS STABLE ON BOTTLE LABEL INSPECTOR. RECEIVED STAT ORDERS FOR ABG, PRIMOLTY BEING DRAWN BY RT NOW. WILL CALL RESULTS TO DR. LOPEZ. WILL REVIEW OTHER ORDERS AND TREAT PRESCRIBED.
[2021-06-24 07:46] LABS: PCO2 Arterial 67.2 mmHg (35-45); PO2 Arterial 66.9 mmHg (80-100); pH Blood Arterial 7.45 (7.35-7.45)
--- NOTE | 2021-06-24 07:56 | NUR ---
ABG RECEIVED STAT ORDERS FOR ABG, RT RESULTED AT [address] LOPEZ AT THIS TIME. RECEIVED ORDERS FOR MEDICATION CHANGES. REVIEWED WITH DR. ALLAN THESE NEW ORDERS FROM DR. LOPEZ. RECEIVED VERBAL VERFIICATION TO PROCEED WITH MEDICATION CHANGES.
--- NOTE | 2021-06-24 12:05 | NUR ---
REASSESSMENT NO ACUTE CHANGES FROM PREVIOUS ASSESSMENT. PATIENT SITTING UP IN BED, EATING LUNCH INDEPENDENTLY WITH RN SUPERVISING FOR SAFETY. PATIENT TOLERATING PO INTAKE WELL. VITALS STABLE, REMOVED 02 AT THIS TIME WHILE AWAKE WITH SATS 90-91%. WILL CONTINUE TO MONITOR.
--- NOTE | 2021-06-24 14:07 | NUR ---
REPORT GIVEN TO MONTRELL PEREZ.
--- NOTE | 2021-06-24 14:38 | NUR ---
RESUMED CARE, REPORT FROM JOSHUA PEREZ, PATEINT RESTING, NO DISTRESS
--- NOTE | 2021-06-24 19:08 | NUR ---
REPORT GIVEN TO LESLEY HERNANDEZ MEDICAL FLOOR RN, PATIENT TRANSFFERED TO ROOM 327, PATEINT FLAT EFFECT, SLOW TO RESPOND, NOT IMPULSIVE, MAKED NEEDS KNOWN, LS COARSE, COUGH CLEARS CONGESTION, MECAHNICAL SOFT DIET, THIN LIQUIDS OK, NO STRAWS. HCO3 TO FINISH INFUSING PER DR. LOPEZ ORDER, R FA AND ERROL IVS FLUSHED, VSS, NO ALARMS FOR TELE RHYTHMS, TELE NOT REORDERED, RELAYED TO LESLEY HERNANDEZ RN
[2021-06-25 05:05] LABS: Hematocrit 33.7 % (33.0-51.0); Hemoglobin 11.5 g/dL (11.5-16.0); Mean Corpuscular HGB 38.7 pg (26.0-34.0); Mean Corpuscular HGB Conc 34.1 g/dL (31.5-36.5); Mean Corpuscular Volume 114 fL (80-100); Mean Platelet Volume 10.2 fL (9.1-12.4); NRBC ABSOLUTE 0.03 K/mm3 (0.00-0.02); NRBC Auto 0.5 /100 WBC (0.0-0.2); Platelet Count 135 K/mm3 (150-400); RDW Coefficient Variation 18.9 % (11.7-14.2); RDW Standard Deviation 78.5 fL (35.1-46.3); Red Blood Cell Count 2.97 M/mm3 (3.80-5.20); White Blood Cell Count 5.75 K/mm3 (4.00-11.30)
[2021-06-25 05:27] LABS: Magnesium, Blood 1.4 mg/dL (1.6-2.4)
[2021-06-25 05:28] LABS: Alanine Aminotransfer (ALT/SGP 119 U/L (12-78); Albumin, Blood 2.9 g/dL (3.4-5.0); Albumin/Globulin Ratio 0.9 (0.8-1.8); Alk Phos 97 U/L (50-136); Anion Gap 10 mmol/L (6-16); Aspartate Aminotrans (AST/SGOT 121 U/L (12-37); Blood Urea Nitrogen 8 mg/dL (8-24); Bun/Creatinine Ratio 14.6 (12.0-20.0); CO2, Blood 38 mmol/L (21-32); Calcium, Blood 8.9 mg/dL (8.5-10.1); Chloride, Blood 84 mmol/L (98-108); Creatinine, Blood 0.55 mg/dL (0.40-1.00); Globulin, Blood 3.4 g/dL (2.2-4.0); Glomerular Filtration Rate >60 (60-); Glucose, Blood 132 mg/dL (70-99); Phosphorus, Blood 2.1 mg/dL (2.5-4.9); Potassium, Blood 3.3 mmol/L (3.5-5.5); Sodium, Blood 132 mmol/L (136-145); Total Protein, Blood 6.3 g/dL (6.4-8.2)
--- NOTE | 2021-06-25 05:49 | NUR ---
SHIFT SUMMARY PATIENT ALERT AND ORIENTED X3. HAD NO COMPLAINTS OF PAIN OR SHORTNESS OF BREATH. WAS DROWSY AND SLEPT ALL NIGHT. NO ACUTE ISSUES NOTED. BED IN LOWEST POSITION WITH WHEELS LOCKED AND ALARM ON. CALL LIGHT WITHIN REACH. REPORT GIVEN TO ONCOMING RN.
[2021-06-25] MEDS ORDERED: SPIR25 PO (10:47)
[2021-06-25] MEDS ORDERED: LISI5 PO (10:48)
[2021-06-25] MEDS ORDERED: FURO80 PO (10:48)
--- NOTE | 2021-06-25 18:54 | NUR ---
SHIFT SUMMARY PATIENT A&0 X3. PATIENT DROWSY AND SLOW TO RESPOND. SLEPT MOST OF SHIFT. SMALL APPETITE. PATIENT'S CAME TO VISIT THIS AFTERNOON. ON 2L NC WITH WHEEZING. COUGH PRESENT. HARRY D/C'D. PATIENT GETTING UP TO BSC WITH 1PA AND WALKER. OCCASIONALLY INCONTINTENT. WILL CONTINUE TO MONITOR.
--- NOTE | 2021-06-26 05:47 | NUR ---
SHIFT SUMMARY PATIENT ALERT AND ORIENTED X3. HAD NO COMPLAINTS OF PAIN OR SHORTNESS OF BREATH. NO ACUTE ISSUES NOTED OVERNIGHT. BED IN LOWEST POSITION WITH WHEELS LOCKED AND ALARM ON. CALL LIGHT WITHIN REACH. REPORT GIVEN TO ONCOMING RN.
[2021-06-26 06:26] LABS: Albumin, Blood 2.9 g/dL (3.4-5.0); Anion Gap 8 mmol/L (6-16); Blood Urea Nitrogen 10 mg/dL (8-24); Bun/Creatinine Ratio 17.5 (12.0-20.0); CO2, Blood 39 mmol/L (21-32); Calcium, Blood 9.1 mg/dL (8.5-10.1); Chloride, Blood 87 mmol/L (98-108); Creatinine, Blood 0.57 mg/dL (0.40-1.00); Glomerular Filtration Rate >60 (60-); Glucose, Blood 97 mg/dL (70-99); Phosphorus, Blood 3.1 mg/dL (2.5-4.9); Potassium, Blood 3.1 mmol/L (3.5-5.5); Sodium, Blood 134 mmol/L (136-145)
[2021-06-26] MEDS ORDERED: POTCHL20ER PO (16:54)
[2021-06-26] MEDS ORDERED: FOLI1 PO (16:54)
[2021-06-26] MEDS ORDERED: PRED20 PO (16:55)
[2021-06-26] MEDS ORDERED: B-1100 M1 PO (16:56)
--- NOTE | 2021-06-26 19:40 | NUR ---
SHIFT SUMMARY PATIENT PLANNED TO DISCHARGE HOME WITH HOME HEALTH. PATIENT STATED WOULD BE PATIENTS RIDE HOME. ATTEMPTED TO CALL UNABLE TO REACH AND OBTAIN A RIDE HOME. 'S CLINICAL SERVICES DIRECTOR CALLED EXPLAINING THAT IS ON HOME HOSPICE REQUIRING COMPLETE CARE AND THAT PATIENT HAD BEEN PROVIDING CARE IN ADDITION TO A SAW STRAIGHTENER, HOWEVER SAW STRAIGHTENER NO LONGER WORKING FOR COMPANY AND SOCIAL WORKERS ARE FILLING IN UNTIL HE CAN BE PLACED IN A SNF ON TUESDAY. THIS RN DID NOT FEEL SAFE DISCHARGING PATIENT HOME GIVEN CURRENT HOME SITUATION. SPOKE TO DOCTOR REQUESTING TO KEEP PATIENT ONE MORE NIGHT.
[2021-06-27 05:12] LABS: Hematocrit 33.1 % (33.0-51.0); Hemoglobin 11.1 g/dL (11.5-16.0)
--- NOTE | 2021-06-27 05:20 | NUR ---
PT IS SLEEPING THIS MORNING. PT DID NOT DISCHARGE PLANNED DUE TO CIRCUMSTANCES AT HOME THAT WOULD NOT BE CONSIDERED SAFE. PT WAS TIRED AND SLEPT THROUGH THE NIGHT WITH NO ISSUES. UNKNOWN WHETHER PT WILL D/C TODAY, TELE MONITORING PACK PLACED BACK ON THE PT TILL FURTHER NOTICE. OTHERWISE NOT ACUTE EVENTS OVERNIGHT. PT CALL LIGHT AND BELONGINGS WITHIN REACH.
[2021-06-27 05:39] LABS: Albumin, Blood 2.8 g/dL (3.4-5.0); Anion Gap 7 mmol/L (6-16); Blood Urea Nitrogen 10 mg/dL (8-24); Bun/Creatinine Ratio 16.5 (12.0-20.0); CO2, Blood 35 mmol/L (21-32); Calcium, Blood 8.9 mg/dL (8.5-10.1); Chloride, Blood 88 mmol/L (98-108); Creatinine, Blood 0.61 mg/dL (0.40-1.00); Glomerular Filtration Rate >60 (60-); Glucose, Blood 94 mg/dL (70-99); Magnesium, Blood 1.8 mg/dL (1.6-2.4); Phosphorus, Blood 2.4 mg/dL (2.5-4.9); Potassium, Blood 3.2 mmol/L (3.5-5.5); Sodium, Blood 130 mmol/L (136-145)
--- NOTE | 2021-06-27 16:20 | NUR ---
DAY SHIFT SUMMARY 61 YR OLD FEMALE PT ADMITTED WITH HYPONATREMIA AND AMS WITH TOXIC METABOLIC ENCEPHALOPATHY. A/O X3, GENERALIZED BRUISING AND RED SKIN, FLAT AFFECT. D/C PENDING FOR TODAY. UNABLE TO GET TRANSPORTATION UNTIL AFTER 1900. CALL LIGHT WITHIN REACH, PT IS ABLE TO CALL APPROPRIATELY.
--- NOTE | 2021-06-27 17:57 | NUR ---
[facility] SMALL CRAFT OPERATOR CALLED CHIKI GRESHAM [phone] SHE WOULD LIKE TO BE NOTIFIED WHEN THE PT IS DISCHARGED
[2021-06-28 05:08] LABS: Hematocrit 33.7 % (33.0-51.0); Hemoglobin 11.4 g/dL (11.5-16.0)
--- NOTE | 2021-06-28 05:23 | NUR ---
PT WAS MORE ALERT BUT SLIGHTLY CONFUSED IN THE EVENING. PT KEPT REPEATING THAT SHE NEEDED TO CONTACT HER BUT ALL THE NUMBERS SHE PROVIDED DID NOT WORK. REORIENTED THE PT AND EXPLAINED HER DAUGHTER WOULD BE BACK IN THE AM TO TALK TO HER. TELE- NSR, PT ON RA BUT STILL SOUNDS WHEEZY/DIM , PRODUCTIVE COUGH STILL PRESENT BUT IS ABLE TO CLEAR SECRETIONS JUST FINE. PT IS INDEPENDENT TO THE BSC. OTHERWISE NO ACUTE EVENTS OVERNIGHT, PT CALL LIGHT AND BELONGINGS WITHIN REACH.
[2021-06-28 05:37] LABS: Albumin, Blood 2.9 g/dL (3.4-5.0); Anion Gap 8 mmol/L (6-16); Blood Urea Nitrogen 9 mg/dL (8-24); Bun/Creatinine Ratio 15.9 (12.0-20.0); CO2, Blood 33 mmol/L (21-32); Chloride, Blood 92 mmol/L (98-108); Creatinine, Blood 0.57 mg/dL (0.40-1.00); Glomerular Filtration Rate >60 (60-); Glucose, Blood 96 mg/dL (70-99); Magnesium, Blood 1.7 mg/dL (1.6-2.4); Phosphorus, Blood 2.4 mg/dL (2.5-4.9); Potassium, Blood 3.3 mmol/L (3.5-5.5); Sodium, Blood 133 mmol/L (136-145)
--- NOTE | 2021-06-28 16:39 | NUR ---
DAY SHIFT SUMMARY PT TO BE DISCHARGED TOMORROW. A/O X3, GENERALIZED BRUISING AND REDNESS TO SKIN. PT ON RA. NO ACUTE CHANGES THIS SHIFT. CALL LIGHT WITHIN REACH.
[2021-06-29 04:54] LABS: Hematocrit 35.8 % (33.0-51.0); Hemoglobin 11.9 g/dL (11.5-16.0)
--- NOTE | 2021-06-29 05:03 | NUR ---
PT IS SLEEPING THIS MORNING. ALERT AND ORIENTED X3-4 SHE CAN BE FORGETFUL SOMETIMES, PT NOT MONITORED PULSES 2/, LE EDEMA, PT ON RA SATTING >95, PT IS STILL COMPLAINING OF LOOSE STOOLS. VITALS HAVE OTHERWISE BEEN STABLE OVERNIGHT. NO C/O PAIN, SOB, OR N/V. PT CALL LIGHT AND BELONGINGS WITHIN REACH.
[2021-06-29 05:16] LABS: Albumin, Blood 2.9 g/dL (3.4-5.0); Anion Gap 8 mmol/L (6-16); Blood Urea Nitrogen 11 mg/dL (8-24); Bun/Creatinine Ratio 16.9 (12.0-20.0); CO2, Blood 29 mmol/L (21-32); Calcium, Blood 9.1 mg/dL (8.5-10.1); Chloride, Blood 98 mmol/L (98-108); Creatinine, Blood 0.65 mg/dL (0.40-1.00); Glomerular Filtration Rate >60 (60-); Glucose, Blood 90 mg/dL (70-99); Magnesium, Blood 1.9 mg/dL (1.6-2.4); Phosphorus, Blood 3.3 mg/dL (2.5-4.9); Potassium, Blood 3.6 mmol/L (3.5-5.5); Sodium, Blood 135 mmol/L (136-145)
--- NOTE | 2021-06-29 17:14 | NUR ---
DISCHARGE DISCHARGE INSTRUCTIONS, MEDICATION LIST AND FOLLOW UP APPOINTMENT REVIEWED WITH PT. PT VERBALLY INDICATED UNDERSTANDING OF ALL INSTRUCTIONS RECEIVED. ESCORTED OUT VIA W/C. DAUGHTER ANMOL IS PROVIDING TRANSPORTATION BACK TO PT'S HOME.
== END 2021-06-29 17:01 | disposition home health service (06) | DRG 640 ==
LOC: ER 11:45 → MEDS 12:57 → ICUW 12:57 → ICUE 12:57 → MEDS 06-24 18:53 → ENPENDDIS 06-26 16:04 → MEDS 06-27 07:54
PROVIDERS: Emergency Medicine; Family Medicine; Internal Medicine; Internal Medicine Nephrology; ADMIT Internal Medicine
DX: E87.1 Hypo-osmolality and hyponatremia (principal); I50.43 Acute on chronic combined systolic (congestive) and diastolic (congestive) heart failure; G92.8 Other toxic encephalopathy; J96.21 Acute and chronic respiratory failure with hypoxia; I13.0 Hypertensive heart and chronic kidney disease with heart failure and stage 1 through stage 4 chronic kidney disease, or unspecified chronic kidney disease; F10.239 Alcohol dependence with withdrawal, unspecified; A04.72 Enterocolitis due to Clostridium difficile, not specified as recurrent; I42.9 Cardiomyopathy, unspecified; J44.9 Chronic obstructive pulmonary disease, unspecified; F17.210 Nicotine dependence, cigarettes, uncomplicated; Z88.1 Allergy status to other antibiotic agents; Z88.0 Allergy status to penicillin; E87.6 Hypokalemia; Z95.810 Presence of automatic (implantable) cardiac defibrillator; Z98.890 Other specified postprocedural states; N18.30 Chronic kidney disease, stage 3 unspecified; E03.9 Hypothyroidism, unspecified; F31.9 Bipolar disorder, unspecified; F90.9 Attention-deficit hyperactivity disorder, unspecified type; B19.20 Unspecified viral hepatitis C without hepatic coma; I48.0 Paroxysmal atrial fibrillation; Z90.710 Acquired absence of both cervix and uterus; K74.60 Unspecified cirrhosis of liver; E83.51 Hypocalcemia; D64.9 Anemia, unspecified; R56.9 Unspecified convulsions; E88.09 Other disorders of plasma-protein metabolism, not elsewhere classified; I27.20 Pulmonary hypertension, unspecified; E83.39 Other disorders of phosphorus metabolism; E83.42 Hypomagnesemia
CPT/HCPCS: 36415; 36416; 36600; 51702; 70450; 71045; 80048; 80053; 80069; 81001; 81050; 82272; 82533; 82803; 83690; 83735; 83880; 83930; 83935; 84100; 84132; 84133; 84295; 84300; 84443; 84484; 84550; 85014; 85018; 85025; 85027; 87086; 87324; 87493; 92526; 92610; 93005; 93010; 93306; 93308; 93321; 94640; 94664; 94760; 94761; 96365; 96374; 96375; 97162; 97166; 97530; 97535; 99285-25; A9270; C9113; G0480; J0610; J2060; J2930; J3411; J3475; J3480; J7030; J7042; J7050; J7060; J7512

== ENCOUNTER 2021-10-22 13:08 | Inpatient (IN) | payer MEDICARE, OTHER ==
[~2021-10-22] VITALS: Ht 165.1 cm; Wt 96.3 kg
[~2021-10-22 13:08] MED LIST changes: +B-1100 M1 PO; +FOLI1 PO; +FURO80 PO; +POTCHL20ER PO
[2021-10-22 14:30] LABS: Calcium, Ionized (POC) 0.91 mmol/L (1.10-1.46); Chloride (POC) 77 mmol/L (98-108); Creatinine (POC) 0.7 mg/dL (0.6-1.0); Glucose (ISTAT POC) 176 mg/dL (70-99); Hemoglobin (POC) 13.9 g/dL (12.0-16.0); Potassium (POC) 2.5 mmol/L (3.5-5.5); Sodium (POC) 125 mmol/L (135-148); Total CO2 (POC) 35 mmol/L (21-32)
[2021-10-22 14:42] LABS: BASOPHILS ABSOLUTE AUTO 0.03 K/mm3 (0.00-0.23); BASOPHILS PERCENT AUTO 1 % (0-2); EOSINOPHILS PERCENT AUTO 0 % (0-6); Hemoglobin 12.2 g/dL (11.5-16.0); IMMATURE GRAN ABSOLUTE AUTO 0.02 K/mm3 (0.00-0.10); IMMATURE GRAN PERCENT AUTO 0 % (0-1); LYMPHOCYTES ABSOLUTE AUTO 0.59 K/mm3 (0.84-5.20); LYMPHOCYTES PERCENT AUTO 13 % (21-46); MONOCYTES ABSOLUTE AUTO 0.46 K/mm3 (0.16-1.47); MONOCYTES PERCENT AUTO 10 % (4-13); Mean Corpuscular HGB 30.5 pg (26.0-34.0); Mean Corpuscular HGB Conc 33.9 g/dL (31.5-36.5); Mean Corpuscular Volume 90 fL (80-100); Mean Platelet Volume 9.4 fL (9.1-12.4); NEUTROPHILS ABSOLUTE AUTO 3.55 K/mm3 (1.96-9.15); NEUTROPHILS PERCENT AUTO 76 % (41-73); Platelet Count 217 K/mm3 (150-400); RDW Standard Deviation 55.9 fL (35.1-46.3); White Blood Cell Count 4.65 K/mm3 (4.00-11.30)
[2021-10-22 14:46] LABS: Albumin, Blood 3.1 g/dL (3.4-5.0); Albumin/Globulin Ratio 0.8 (0.8-1.8); Bilirubin, Total 1.2 mg/dL (0.1-1.0); Bun/Creatinine Ratio 16.5 (12.0-20.0); Calcium, Blood 8.6 mg/dL (8.5-10.1); Creatinine, Blood 0.55 mg/dL (0.40-1.00); Globulin, Blood 3.7 g/dL (2.2-4.0); Potassium, Blood 2.6 mmol/L (3.5-5.5); Total Protein, Blood 6.8 g/dL (6.4-8.2)
[2021-10-22 15:47] LABS: International Normalized Ratio 1.09; Prothrombin Time Results 11.4 Sec (9.7-11.5)
[2021-10-22 16:09] LABS: Ethanol (Alcohol), Blood, Med <3 mg/dL
[2021-10-22 16:22] LABS: Alanine Aminotransfer (ALT/SGP 122 U/L (12-78); Albumin, Blood 3.2 g/dL (3.4-5.0); Albumin/Globulin Ratio 0.8 (0.8-1.8); Alk Phos 187 U/L (50-136); Aspartate Aminotrans (AST/SGOT 244 U/L (12-37); Bilirubin, Direct 0.7 mg/dL (0.0-0.3); Bilirubin, Indirect 0.5 mg/dL (0.1-0.7); Bilirubin, Total 1.2 mg/dL (0.1-1.0); Globulin, Blood 3.8 g/dL (2.2-4.0)
[2021-10-22 18:01] LABS: Bun/Creatinine Ratio 16.3 (12.0-20.0); Calcium, Blood 8.6 mg/dL (8.5-10.1); Creatinine, Blood 0.55 mg/dL (0.40-1.00); Potassium, Blood 2.7 mmol/L (3.5-5.5)
[2021-10-22 18:20] LABS: CPK Creatine Kinase 121 U/L (26-193)
[2021-10-22 18:46] LABS: Source, Urine Straight Cath
[2021-10-22 18:52] LABS: Albumin, Blood 3.1 g/dL (3.4-5.0); Anion Gap 13 mmol/L (6-16); Blood Urea Nitrogen 9 mg/dL (8-24); Bun/Creatinine Ratio 16.5 (12.0-20.0); CO2, Blood 31 mmol/L (21-32); Calcium, Blood 8.6 mg/dL (8.5-10.1); Chloride, Blood 85 mmol/L (98-108); Creatinine, Blood 0.55 mg/dL (0.40-1.00); Glomerular Filtration Rate 104 (60-); Glucose, Blood 125 mg/dL (70-99); Phosphorus, Blood 2.5 mg/dL (2.5-4.9); Potassium, Blood 2.7 mmol/L (3.5-5.5); Sodium, Blood 129 mmol/L (136-145)
[2021-10-22 19:01] LABS: Appearance, Urine Hazy (Clear); Bilirubin, Urine Neg (Neg); Blood, Urine 4+ (Neg); Color, Urine Yellow (P-Yellow); Glucose Qualitative, Urine Neg (Neg); Ketones, Urine Neg (Neg); Leukocyte Esterase, Urine 2+ (Neg); Nitrite, Urine Neg (Neg); Protein, Urine Neg (Neg); Urobilinogen, Urine 1+ (Normal)
[2021-10-22 19:19] LABS: U Amphetamine Screen Not Detected; U Barbituate Screen Not Detected; U Benzodiazapine Screen Not Detected; U Buprenorphine Screen Not Detected; U Cannabinoids Screen Not Detected; U Cocaine Screen Not Detected; U Methadone Screen Not Detected; U Methamphetamine Screen Not Detected; U Opiates Screen DETECTED; U Oxycodone Screen Not Detected; U Phencyclidine Screen Not Detected; U Propoxyphene Screen Not Detected
[2021-10-22 19:28] LABS: Bacteria Many /hpf
[2021-10-22 19:29] LABS: Squamous Epithelial Cells Rare /hpf (Few)
[2021-10-22 19:50] LABS: Cholesterol 171 mg/dL (50-200); HDL Cholesterol 86 mg/dL (>39); LDL/HDL RATIO 0.7; Low Density Lipoprotein Chol 64 mg/dL (0-110); Triglycerides 105 mg/dL (30-160); Very Low Density Lipoprot Chol 21 mg/dL (6-32)
--- NOTE | 2021-10-22 21:17 | NUR ---
ASSUMED CARE OF PATIENT AT APPROXIMATELY 2018 FROM ER. PATIENT ARRIVED VIA STRETCHER; TRANSFER WITH ASSIST FROM ER STRETCHER TO PCU STRETCHER. PATIENT ALERT TO SELF AND ; [id number]; NOT FOLLOWING DIRECTIONS WELL. PATIENT ARRIVE WITH HOME ATTENDS INCONTINENT OF URINE AND STOOL; CHANGED; PATIENT ONE ASSIST TO BEDSIDE COMMODE. PATIENT DENIES CP/PRESSURE, SHORTNESS OF BREATH, DIZZINESS, AND NAUSEA. KCL INFUSING PER ORDER. ST ON TELE; OXYGEN SATURATION ABOVE 90% ON ROOM AIR; WHEEZES T/O; COUGHING UP MODERATE AMOUNTS OF CLEAR SPUTUM. DR. SANTOS CALLED AT 2111 TO ASK FOR MEDICATION REC TO BE COMPLETED; PATIENT REPORTS SHE TOOK ALL MEDICATIONS TODAY BUT NOT ABLE TO REPORT MEDICATIONS. DAUGHTER ANMOL ARRIVED AROUND 2099 AND REPORTS PATIENT NONCOMPLIANT WITH MEDICATIONS AT HOME; DR. SANTOS NOTIFIED. DR. SANTOS ALSO NOTIFIED THAT PATIENT HAS BEEN DRINKING TEQUILA AND LOTS OF BEER DAILY PER REPORT OF DAUGHTER; PATIENT REPORTS SHE DRANK "A BEER" THIS MORNING; MD WILL PUT IN CIWA ORDERS; DAUGHTER REPORTED THAT PATIENT HAD SEIZURES WITH WITHDRAWALS LAST TIME IN ICU. DR. SANTOS NOTIFIED OF 2122 TROPONIN; MD HOLDING HEPARIN DUE TO PATIENT TAKING XARELTO TODAY. PATIENT WHEEZY AND COUGHING UP LARGE AMOUNTS OF FROTHY SPUTUM; MD REPORTS ORDERED XRAY. NOTIFIED PATIENT SMOKES 1 PACK A DAY; MD WILL ORDER NICOTINE PATCH. PATIENT HEART RATE 130'S ST ON TELE; MD WILL PUT IN ORDERS FOR PRN METOPROLOL. 2123 - DR. SANTOS CALLED TO REPORT LAB PUT IN FOR FACTOR XA AND MAY START HEPARIN GTT AFTER LAB RESULTS.
[2021-10-22 22:24] LABS: Albumin, Blood 3.2 g/dL (3.4-5.0); Anion Gap 10 mmol/L (6-16); Blood Urea Nitrogen 9 mg/dL (8-24); Bun/Creatinine Ratio 14.8 (12.0-20.0); CO2, Blood 35 mmol/L (21-32); Chloride, Blood 84 mmol/L (98-108); Creatinine, Blood 0.61 mg/dL (0.40-1.00); Glomerular Filtration Rate 101 (60-); Glucose, Blood 193 mg/dL (70-99); Phosphorus, Blood 2.3 mg/dL (2.5-4.9); Potassium, Blood 2.7 mmol/L (3.5-5.5); Sodium, Blood 129 mmol/L (136-145)
--- NOTE | 2021-10-22 22:50 | NUR ---
CALLED DR. Bowden TO REPORT YEAST IN FOLDS; ORDER FOR NYSTATIN POWDER.
--- NOTE | 2021-10-22 22:58 | NUR ---
CALLED DR. LOPEZ BY REQUEST WITH 2200 LABS; DR. LOPEZ PLACED MEDICATION ORDERS AND REQUESTED TO BE CALLED WITH AM LABS BY 0400. REPORTED TO DR. LOPEZ PATIENT INCONTINENT OF URINE AT TIMES AND USES BSC AT TIMES; BLADDER SCAN 54.
--- NOTE | 2021-10-22 23:11 | NUR ---
DR. LOPEZ NOTIFIED THAT THE WAY IV DRIPS ARE ORDERED INFUSION WILL TAKE ABOUT TEN HOURS; ORDERS TO DRAW LABS AT 0400 THEN CALL BY 0500; IT IS OK TO BREAK UP INFUSIONS
[2021-10-23 04:12] LABS: BASOPHILS ABSOLUTE AUTO 0.02 K/mm3 (0.00-0.23); BASOPHILS PERCENT AUTO 1 % (0-2); EOSINOPHILS ABSOLUTE AUTO 0.03 K/mm3 (0.00-0.68); EOSINOPHILS PERCENT AUTO 1 % (0-6); Hematocrit 34.9 % (33.0-51.0); Hemoglobin 11.4 g/dL (11.5-16.0); IMMATURE GRAN ABSOLUTE AUTO 0.02 K/mm3 (0.00-0.10); IMMATURE GRAN PERCENT AUTO 1 % (0-1); LYMPHOCYTES ABSOLUTE AUTO 1.14 K/mm3 (0.84-5.20); LYMPHOCYTES PERCENT AUTO 26 % (21-46); MONOCYTES ABSOLUTE AUTO 0.52 K/mm3 (0.16-1.47); MONOCYTES PERCENT AUTO 12 % (4-13); Mean Corpuscular HGB 30.2 pg (26.0-34.0); Mean Corpuscular HGB Conc 32.7 g/dL (31.5-36.5); Mean Corpuscular Volume 93 fL (80-100); Mean Platelet Volume 9.9 fL (9.1-12.4); NEUTROPHILS ABSOLUTE AUTO 2.71 K/mm3 (1.96-9.15); NEUTROPHILS PERCENT AUTO 61 % (41-73); Platelet Count 203 K/mm3 (150-400); RDW Coefficient Variation 17.5 % (11.7-14.2); Red Blood Cell Count 3.77 M/mm3 (3.80-5.20); White Blood Cell Count 4.44 K/mm3 (4.00-11.30)
[2021-10-23 04:41] LABS: Albumin, Blood 2.9 g/dL (3.4-5.0); Albumin/Globulin Ratio 0.8 (0.8-1.8); Bilirubin, Total 1.4 mg/dL (0.1-1.0); Bun/Creatinine Ratio 12.4 (12.0-20.0); Calcium, Blood 8.6 mg/dL (8.5-10.1); Creatinine, Blood 0.72 mg/dL (0.40-1.00); Globulin, Blood 3.5 g/dL (2.2-4.0); Magnesium, Blood 1.7 mg/dL (1.6-2.4); Phosphorus, Blood 2.5 mg/dL (2.5-4.9); Thyroid Stimulating Hormone 6.77 uIU/mL (0.360-4.800); Total Protein, Blood 6.4 g/dL (6.4-8.2)
--- NOTE | 2021-10-23 04:45 | NUR ---
CALLED DR. LOPEZ WITH LABS; ORDERS TO INFUSE ANOTHER 20MEQ OF IV KCL AFTER POTASSIUM PHOSPHATE IV IS INFUSED.
--- NOTE | 2021-10-23 05:44 | NUR ---
PATIENT SLEPT ABOUT FIVE HOURS LAST NIGHT; MENTATION IMPROVED THIS MORNING COMPARED TO LAST NIGHT. NO OTHER ACUTE CHANGES TO REPORT.
[2021-10-23 06:13] LABS: Anti-Xa UFH, PHA Monitoring 0.26 IU/mL
--- NOTE | 2021-10-23 09:34 | NUR ---
CARE ASSUMPTION THIS RN ASSUMED CARE FROM BRIANNA PEREZ AT 0700. VSS. TELE AFIB 121. PATIENT IS ALERT AND ORIENTED TO PLACE, MONTH, SURROUDNINGS, BUT WAS UNABLE TO GET THE DAY AND YEAR RIGHT. PERRLA. CIWA 7. PATIENT REPORTS NO CHEST PAIN/PRESSURE. CAP REFILL <3SECONDS. +1 EDEMA IN LOWER EXTREMITIES. PATIENT REPORTS NO SHORTNESS OF BREATH. LUNG SOUNDS HAVE EXPIRATORY WHEEZES THROUGHOUT. PATIENT ABD IS ACTIVE NONTENDER, INCONTIENT OF BOWEL AND BLADDER. SKIN HAS EXCORIATIONS IN SKINFOLDS, MEDICATION APPLIED THIS AM. PATIENT USES CALL LIGHT APPRORPIATELY. PATIENT IS A ONE PERSON TO THE BEDSIDE COMODE. MD HUDSON IN TO SEE PATIENT THIS AM AND DC HEP GTT. MD ALLAN AND JULIETA BY TO SEE PATIENT THIS AM AND DISCUSSED PLAN OF CARE. PLAN OF CARE IS UP TO DATE. THIS RN PROVIDED THERAPUETIC COMMUNICATION AND ACTIVE LISTENING WITH ALL INTERACTIONS THIS AM AND WILL CONTINUE TO DO SO. PATIENT EDUCATED ON PLAN OF CARE. WILL CONTINUE TO DO HOURLY ROUNDING AND PROVIDE CARE. CALL LIGHT IS WITHIN REACH.
[2021-10-23 09:44] LABS: Free Thyroxine 0.97 ng/dL (0.70-1.60)
[2021-10-23 09:46] LABS: Triiodothyronine, Free 2.7 pg/mL (2.18-3.98)
[2021-10-23 16:39] LABS: Albumin, Blood 2.8 g/dL (3.4-5.0); Anion Gap 9 mmol/L (6-16); Blood Urea Nitrogen 6 mg/dL (8-24); Bun/Creatinine Ratio 8.9 (12.0-20.0); CO2, Blood 30 mmol/L (21-32); Chloride, Blood 91 mmol/L (98-108); Creatinine, Blood 0.68 mg/dL (0.40-1.00); Glomerular Filtration Rate 98 (60-); Glucose, Blood 139 mg/dL (70-99); Magnesium, Blood 1.9 mg/dL (1.6-2.4); Phosphorus, Blood 2.6 mg/dL (2.5-4.9); Potassium, Blood 3.4 mmol/L (3.5-5.5); Sodium, Blood 130 mmol/L (136-145)
--- NOTE | 2021-10-23 17:12 | NUR ---
SHIFT SUMMARY PATIENT NEURO REMAINS INTACT. PATIENT CALLS APPROPRIATELY. PATIENT USES THE BEDSIDE COMODE WITH A ONE PERSON ASSIST. PATIENT STOOL SAMPLE SENT OFF. AWAITING RESULTS. PATIENTS DAUGHTER CAME IN TO VISIT WITH HER TODAY AND UPDATED ON PLAN OF CARE. NO ACUTE CHANGES THIS SHIFT. CALL LIGHT WITHIN REACH. WILL CONTINUE TO MONITOR AND PROVIDE CARE UNTIL HAND OFF WITH NEXT SHIFT.
[2021-10-23 18:33] LABS: Adenovirus F 40/41 Not Detected (NOT DETECT); Astrovirus Not Detected (NOT DETECT); Campylobacter Sp Not Detected (NOT DETECT); Cryptosporidium Not Detected (NOT DETECT); Cyclospora Cayetanensis Not Detected (NOT DETECT); E. Coli O157 Not Detected (NOT DETECT); Entamoeba Histolytica Not Detected (NOT DETECT); Enteroaggregative E. coli-EAEC Not Detected (NOT DETECT); Enteropathogenic E. coli-EPEC Not Detected (NOT DETECT); Enterotoxigenic E. coli-ETEC Not Detected (NOT DETECT); Giardia Lamblia Not Detected (NOT DETECT); Norovirus GI/GII Not Detected (NOT DETECT); Plesiomonas Shigelloides Not Detected (NOT DETECT); Rotavirus A Not Detected (NOT DETECT); Salmonella Sp Not Detected (NOT DETECT); Sapovirus Not Detected (NOT DETECT); Shiga Toxin-prod E. coli-STEC Not Detected (NOT DETECT); Shigella/Enteroin E. coli-EIEC Not Detected (NOT DETECT); Vibrio Cholerae Not Detected (NOT DETECT); Vibrio Sp Not Detected (NOT DETECT); Yersinia Enterocolitica Not Detected (NOT DETECT)
[2021-10-24 04:35] LABS: Hematocrit 35.5 % (33.0-51.0); Hemoglobin 11.4 g/dL (11.5-16.0)
[2021-10-24 04:56] LABS: Albumin, Blood 2.7 g/dL (3.4-5.0); Anion Gap 6 mmol/L (6-16); Blood Urea Nitrogen 7 mg/dL (8-24); Bun/Creatinine Ratio 10.4 (12.0-20.0); CO2, Blood 32 mmol/L (21-32); Calcium, Blood 8.9 mg/dL (8.5-10.1); Chloride, Blood 92 mmol/L (98-108); Creatinine, Blood 0.68 mg/dL (0.40-1.00); Glomerular Filtration Rate 98 (60-); Glucose, Blood 108 mg/dL (70-99); Magnesium, Blood 1.7 mg/dL (1.6-2.4); Phosphorus, Blood 2.6 mg/dL (2.5-4.9); Potassium, Blood 3.1 mmol/L (3.5-5.5); Sodium, Blood 130 mmol/L (136-145)
--- NOTE | 2021-10-24 06:06 | NUR ---
SHIFT SUMMARY PATIENT ALERT AND ORIENTED x2-3. FORGETFUL AT TIMES. BED ALARM ON FOR SAFETY PATIENT DOES NOT USE CALL LIGHT. FREQUENT REORIENTING AND EDUCATION ABOUT SAFETY IN THE ROOM. VSS. PATIENT REMAINS ON RA WITH O2 SAT >90%. MEDICATED PER EMAR FOR WITHDRAWAL. CIWA BETWEEN 9-12 OVERNIGHT. PATIENT AGITATED ABOUT CARE AT TIMES AND IS WANTING TO GO HOME. EKG DONE THIS AM. NO OTHER SIGNFICANT CHANGES THIS SHIFT. WILL REPORT TO DAY SHIFT RN.
--- NOTE | 2021-10-24 17:20 | NUR ---
SHIFT SUMMARY PT IS CURRENTLY ASLEEP IN BED. PT HAS BEEN ANXIOUS, AGITATED, AND DIFFICULT TO REDIRECT. ALCOHOL WITHDRAWAL HAS BEEN ASSESSED EVERY TWO HOURS AND TREATED ACCORDINGLY. EVENING VITALS RETURNED A BLOOD PRESSURE OF 82/56, PROVIDER WAS NOTIFIED AND ORDERS WERE OBTAINED. PT FAMILY WAS UPDATED ON CONDITION.
[2021-10-25 04:07] LABS: Hematocrit 35.8 % (33.0-51.0); Hemoglobin 11.5 g/dL (11.5-16.0)
[2021-10-25 04:33] LABS: Albumin, Blood 2.7 g/dL (3.4-5.0); Albumin/Globulin Ratio 0.8 (0.8-1.8); Bilirubin, Total 1.3 mg/dL (0.1-1.0); Bun/Creatinine Ratio 11.2 (12.0-20.0); Calcium, Blood 9.1 mg/dL (8.5-10.1); Creatinine, Blood 0.71 mg/dL (0.40-1.00); Globulin, Blood 3.5 g/dL (2.2-4.0); Magnesium, Blood 1.9 mg/dL (1.6-2.4); Potassium, Blood 3.4 mmol/L (3.5-5.5); Total Protein, Blood 6.2 g/dL (6.4-8.2)
--- NOTE | 2021-10-25 04:51 | NUR ---
0400 PATIENT IS OPENING EYES TO VERBAL STIMULI BUT WILL FALL ASLEEP IMMEDIATLEY. PATIENT IS DIAPHORETIC. SOFT BPs. NO CHANGE IN LUNG SOUNDS SINCE PREVIOUS ASSESSMENT. UPON AUSCULTATING HEART SOUNDS, TRUCK WASHER AND THIS RN AUSCULTATING NEW RUB. CALL PLACED TO RESIDENT, ORDER FOR VBG RECIEVED. TRUCK WASHER AT BEDSIDE OBTAINING EKG.
[2021-10-25 04:56] LABS: Base Excess Venous 9.9 mmol/L
[2021-10-25 04:58] LABS: Bicarbonate Venous 32.3 mmol/L (24.0-30.0); PCO2 Venous 47.8 mmHg (38-42); pH Blood Venous 7.46 (7.34-7.37)
--- NOTE | 2021-10-25 05:30 | NUR ---
UPDATE DR. Bowden AT BEDSIDE ASSESSING PATIENT. ORDERS RECIEVED FOR CHEST XR, AND ROBITUSSIN FOR PATIENTS COUGH. COVID SWAB SENT.
--- NOTE | 2021-10-25 07:16 | NUR ---
SHIFT SUMMARY PATIENT ALERT AND ORIENTED X2-3. ABLE TO MAKE NEEDS KNOWN TO STAFF BUT DOES NOT USE CALL LIGHT OFTEN AND PATIENT WILL YELL OUT. VSS, SOFT BPs AT TIMES. PATIENT SLEPT FOR MAJORITY OF SHIFT. DIAPHORETIC T/O NIGHT. CIWA RANGING FROM 4-6. CHEST XR COMPLETE, COVID SWAB PENDING. SEE PREVIOUS NOTES REGARDING OTHER UPDATES. WILL REPORT TO DAY SHIFT RN.
[2021-10-25 07:32] LABS: Influenza A, PCR NEGATIVE (NEGATIVE); Influenza B, PCR NEGATIVE (NEGATIVE); Resp Syncytial Virus, PCR NEGATIVE (NEGATIVE); SARS-Cov-2 (COVID-19) PCR, MMC NEGATIVE (NEGATIVE)
[2021-10-25 11:13] LABS: Potassium, Blood 3.8 mmol/L (3.5-5.5)
--- NOTE | 2021-10-25 17:42 | NUR ---
SHIFT SUMMARY PT HAS BEEN ALERT AND ORIENTED X4, PLEASANT AND COOPERATIVE. PT EXPRESSED DESIRE TO DISCHARGE TODAY BUT AFTER CONVERSING WITH THE PROVIDER, AGREED TO STAY AND CONTINUE TO BE TREATED. PT HAS BEEN RESTING IN BED AND NAPPING OFF AND ON THROUGHOUT THE DAY. PT HAS NOT USED CALL LIGHT FOR ASSISTANCE. PT HAS USED THE BEDSIDE COMMODE FOR ELIMINATION AND HAS TRANSFERRED BY STAND-BY ASSIST. PT HAS NEEDED REMINDERS TO SLOW DOWN AND BE DELIBERATE ABOUT TRANSFERRING. SBP HAS RANGED 98-107, HEART RATE 76-88 NSR.
--- NOTE | 2021-10-25 22:00 | NUR ---
2100 MEDS D/T EVENT THIS MORNING WITH HYPOTENSION, CARDIAC MEDICATIONS GIVEN AN HOUR APART TO AVOID PATIENT BECOMING HYPOTENSIVE. LOSARTAN HELD D/T VERY CLOSE TO PARAMETERS. SEE VITALS.
[2021-10-26 04:06] LABS: Hematocrit 36.6 % (33.0-51.0); Hemoglobin 11.4 g/dL (11.5-16.0)
[2021-10-26 04:23] LABS: Albumin, Blood 2.6 g/dL (3.4-5.0); Anion Gap 5 mmol/L (6-16); Blood Urea Nitrogen 12 mg/dL (8-24); Bun/Creatinine Ratio 16.9 (12.0-20.0); CO2, Blood 31 mmol/L (21-32); Calcium, Blood 8.9 mg/dL (8.5-10.1); Chloride, Blood 100 mmol/L (98-108); Creatinine, Blood 0.71 mg/dL (0.40-1.00); Glomerular Filtration Rate 96 (60-); Glucose, Blood 107 mg/dL (70-99); Phosphorus, Blood 3.5 mg/dL (2.5-4.9); Sodium, Blood 136 mmol/L (136-145)
--- NOTE | 2021-10-26 05:46 | NUR ---
SHIFT SUMMARY PATIENT ALERT, ORIENTED x2-3. BED ALARM ON FOR SAFETY. VSS, PATIENT REMAINS ON RA WITH O2 SAT >90%. CIWA 4-6 OVERNIGHT. PATIENT WAS ABLE TO SLEEP FOR THE MAJORITY OF SHIFT, RESTING UNTIL PATIENT WAS WOKEN UP BY STAFF FOR CARE. PATIENT ABLE TO STAND PIVOT TO BEDSIDE COMMODE, ADEQUATE OUTPUT. OFFERED BEDBATH/SHOWER, PATIENT DECLINED AND STATED "I'LL DO IT WHEN I GO HOME TOMORROW". NO OTHER SIGNIFICANT CHANGES THIS SHIFT. WILL REPORT TO DAY SHIFT RN.
[2021-10-26] MEDS ORDERED: CEFP200 PO (10:17)
[2021-10-26] MEDS ORDERED: LOSA25 PO (10:17)
[2021-10-26] MEDS ORDERED: METO25ER PO (10:18)
[2021-10-26] MEDS ORDERED: ALBU2.5V5 INH (10:18)
[2021-10-26] MEDS ORDERED: METR500 PO (10:18)
--- NOTE | 2021-10-26 12:36 | NUR ---
DISCHARGE: PT HAS BEEN CLEARED FOR DISCHARGE. IV ACCESS DC'd WNL. PT PROVIDED WITH DC PAPERWORK AND INSTRUCTIONS RE: F/UP APPTS, PRESCRIPTIONS, PLAN OF CARE. PT VERBALIZES UNDERSTANDING. PT DRESSES SELF AND IS ESCORTED FROM DEPT VIA W/C IN NAD.
[2021-11-02 12:11] LABS: ALDOS/RENIN RATIO 0.6 (0.0-30.0); ALDOSTERONE 2.1 ng/dL (0.0-30.0)
== END 2021-10-26 10:35 | disposition home or self-care (01) | DRG 896 ==
LOC: ER 13:08 → PCU 13:09
PROVIDERS: Emergency Medicine; Family Medicine; Internal Medicine; Internal Medicine Cardiovascular Disease; Internal Medicine Nephrology; Student in an Organized Health Care Education/Training Program; ADMIT Family Medicine
PROC: HZ2ZZZZ Detoxification Services for Substance Abuse Treatment (ICD-10-PCS; principal; 2021-10-23)
DX: F10.239 Alcohol dependence with withdrawal, unspecified (principal); G92.8 Other toxic encephalopathy; I21.A1 Myocardial infarction type 2; J69.0 Pneumonitis due to inhalation of food and vomit; I42.0 Dilated cardiomyopathy; I13.0 Hypertensive heart and chronic kidney disease with heart failure and stage 1 through stage 4 chronic kidney disease, or unspecified chronic kidney disease; E87.1 Hypo-osmolality and hyponatremia; E72.20 Disorder of urea cycle metabolism, unspecified; N17.9 Acute kidney failure, unspecified; I48.0 Paroxysmal atrial fibrillation; E03.9 Hypothyroidism, unspecified; J44.9 Chronic obstructive pulmonary disease, unspecified; E87.6 Hypokalemia; K21.9 Gastro-esophageal reflux disease without esophagitis; I50.9 Heart failure, unspecified; N18.2 Chronic kidney disease, stage 2 (mild); M19.012 Primary osteoarthritis, left shoulder; D63.1 Anemia in chronic kidney disease; B19.20 Unspecified viral hepatitis C without hepatic coma; F17.210 Nicotine dependence, cigarettes, uncomplicated; R56.9 Unspecified convulsions; R00.0 Tachycardia, unspecified; E78.00 Pure hypercholesterolemia, unspecified; Z91.14 Patient's other noncompliance with medication regimen; Z95.810 Presence of automatic (implantable) cardiac defibrillator; Z90.710 Acquired absence of both cervix and uterus; Z88.0 Allergy status to penicillin; Z88.1 Allergy status to other antibiotic agents; Z79.899 Other long term (current) drug therapy; Y90.0 Blood alcohol level of less than 20 mg/100 ml
CPT/HCPCS: 0241U; 36415; 70450; 71045; 80047; 80048; 80053; 80061; 80069; 80076; 81001; 82088; 82140; 82533; 82550; 82803; 82947; 83735; 83880; 83930; 84100; 84132; 84146; 84244; 84295; 84439; 84443; 84481; 84484; 84550; 85014; 85018; 85025; 85520; 85610; 85730; 87507; 93005; 93010; 93282; 94640; 94664; 94760; 94762; 96374; 96375; 96376; 99285-25; A9270; C8929; G0378; G0480; J1644; J1940; J3360; J3475; J3480; J7040; J7050; J7060; Q9957

== ENCOUNTER → 2022-08-06 | Outpatient (CLI) | payer MEDICARE, OTHER ==
[~2022-08-06] MED LIST changes: +ALBU2.5V5 INH; +CEFP200 PO; +Carvedilol12.5 MG PO; +FLUT1DIS5 INH; +FURO20 PO; +GABA600 PO; +METO25ER PO; +METR500 PO; +Naltrexone HCl50 MG PO; +PARO10 PO; +POTA10T; +Prednisone20 MG PO
[2022-08-06 16:00] LABS: BASOPHILS ABSOLUTE AUTO 0.05 K/mm3 (0.00-0.23); BASOPHILS PERCENT AUTO 1 % (0-2); EOSINOPHILS ABSOLUTE AUTO 0.04 K/mm3 (0.00-0.68); EOSINOPHILS PERCENT AUTO 1 % (0-6); Hematocrit 44.7 % (33.0-51.0); Hemoglobin 14.9 g/dL (11.5-16.0); IMMATURE GRAN ABSOLUTE AUTO 0.02 K/mm3 (0.00-0.10); IMMATURE GRAN PERCENT AUTO 0 % (0-1); LYMPHOCYTES ABSOLUTE AUTO 1.76 K/mm3 (0.84-5.20); LYMPHOCYTES PERCENT AUTO 29 % (21-46); MONOCYTES ABSOLUTE AUTO 0.65 K/mm3 (0.16-1.47); MONOCYTES PERCENT AUTO 11 % (4-13); Mean Corpuscular HGB 31.2 pg (26.0-34.0); Mean Corpuscular HGB Conc 33.3 g/dL (31.5-36.5); Mean Corpuscular Volume 94 fL (80-100); Mean Platelet Volume 10.7 fL (9.1-12.4); NEUTROPHILS ABSOLUTE AUTO 3.61 K/mm3 (1.96-9.15); NEUTROPHILS PERCENT AUTO 59 % (41-73); Platelet Count 238 K/mm3 (150-400); RDW Coefficient Variation 15.3 % (11.7-14.2); RDW Standard Deviation 52.8 fL (35.1-46.3); Red Blood Cell Count 4.77 M/mm3 (3.80-5.20); White Blood Cell Count 6.13 K/mm3 (4.00-11.30)
[2022-08-06 16:35] LABS: International Normalized Ratio 1.03; Prothrombin Time Results 10.8 Sec (9.7-11.5)
[2022-08-06 16:49] LABS: Albumin, Blood 3.8 g/dL (3.4-5.0); Albumin/Globulin Ratio 0.9 (0.8-1.8); Bilirubin, Total 1.1 mg/dL (0.1-1.0); Calcium, Blood 9.1 mg/dL (8.5-10.1); Creatinine, Blood 0.75 mg/dL (0.40-1.00); Globulin, Blood 4.2 g/dL (2.2-4.0); Percent Saturation 50.4 % (15.0-50.0); Potassium, Blood 3.8 mmol/L (3.5-5.5)
[2022-08-08 06:08] LABS: HEP B CORE AB, TOT Negative (Negative); HEP B SURFACE AB Non Reactive (.)
[2022-08-08 06:08] LABS: HBSAG SCREEN Negative (Negative); HEP A AB, IGM Negative (Negative)
== END | disposition home or self-care (01) ==
LOC: LAB SHORT 13:55
PROVIDERS: Nurse Practitioner Family
DX: B19.20 Unspecified viral hepatitis C without hepatic coma (principal)
CPT/HCPCS: 80053; 82728; 83540; 83550; 85025; 85610; 86704; 86708; 86709; 87340

== ENCOUNTER 2022-09-28 17:55 | Emergency (ER) | payer MEDICARE, OTHER ==
[~2022-09-28] VITALS: Ht 162.6 cm; Wt 90.3 kg
[2022-09-28 19:44] VITALS: BP 130/97
== END 2022-09-28 21:11 | disposition home or self-care (01) ==
LOC: ER 17:55
DX: S42.291A Other displaced fracture of upper end of right humerus, initial encounter for closed fracture (principal); W07.XXXA Fall from chair, initial encounter; I13.0 Hypertensive heart and chronic kidney disease with heart failure and stage 1 through stage 4 chronic kidney disease, or unspecified chronic kidney disease; N18.9 Chronic kidney disease, unspecified; I50.43 Acute on chronic combined systolic (congestive) and diastolic (congestive) heart failure; I48.0 Paroxysmal atrial fibrillation; E03.9 Hypothyroidism, unspecified; F17.210 Nicotine dependence, cigarettes, uncomplicated; Z95.810 Presence of automatic (implantable) cardiac defibrillator; Z88.0 Allergy status to penicillin; Z88.1 Allergy status to other antibiotic agents; Z79.899 Other long term (current) drug therapy; Z79.01 Long term (current) use of anticoagulants
CPT/HCPCS: 23650; 70450; 73030; 73060; 99284-25; A9270; J3010

== ENCOUNTER 2022-11-27 10:35 | Emergency (ER) | payer MEDICARE, OTHER ==
[~2022-11-27] VITALS: Ht 165.1 cm; Wt 90.7 kg
[2022-11-27 15:10] LABS: Albumin, Blood 3.3 g/dL (3.4-5.0); Bilirubin, Total 0.3 mg/dL (0.1-1.0); Bun/Creatinine Ratio 12.8 (12.0-20.0); Calcium, Blood 8.6 mg/dL (8.5-10.1); Creatinine, Blood 0.63 mg/dL (0.40-1.00); Globulin, Blood 3.4 g/dL (2.2-4.0); Potassium, Blood 3.2 mmol/L (3.5-5.5); Total Protein, Blood 6.7 g/dL (6.4-8.2)
[2022-11-27 15:21] LABS: BASOPHILS ABSOLUTE AUTO 0.02 K/mm3 (0.00-0.23); BASOPHILS PERCENT AUTO 0 % (0-2); EOSINOPHILS ABSOLUTE AUTO 0.06 K/mm3 (0.00-0.68); EOSINOPHILS PERCENT AUTO 1 % (0-6); Hematocrit 42.3 % (33.0-51.0); Hemoglobin 13.9 g/dL (11.5-16.0); IMMATURE GRAN ABSOLUTE AUTO 0.02 K/mm3 (0.00-0.10); IMMATURE GRAN PERCENT AUTO 0 % (0-1); LYMPHOCYTES ABSOLUTE AUTO 1.31 K/mm3 (0.84-5.20); LYMPHOCYTES PERCENT AUTO 25 % (21-46); MONOCYTES ABSOLUTE AUTO 0.56 K/mm3 (0.16-1.47); MONOCYTES PERCENT AUTO 11 % (4-13); Mean Corpuscular HGB 33.5 pg (26.0-34.0); Mean Corpuscular HGB Conc 32.9 g/dL (31.5-36.5); Mean Corpuscular Volume 102 fL (80-100); Mean Platelet Volume 9.6 fL (9.1-12.4); NEUTROPHILS ABSOLUTE AUTO 3.37 K/mm3 (1.96-9.15); NEUTROPHILS PERCENT AUTO 63 % (41-73); Platelet Count 164 K/mm3 (150-400); RDW Coefficient Variation 13.1 % (11.7-14.2); RDW Standard Deviation 49.1 fL (35.1-46.3); Red Blood Cell Count 4.15 M/mm3 (3.80-5.20); White Blood Cell Count 5.34 K/mm3 (4.00-11.30)
[2022-11-27 15:29] LABS: Source, Urine Clean Catch
[2022-11-27 15:41] LABS: Bilirubin, Urine Neg (Neg); Blood, Urine 1+ (Neg); Color, Urine Yellow (P-Yellow); Glucose Qualitative, Urine Neg (Neg); Ketones, Urine Neg (Neg); Leukocyte Esterase, Urine 2+ (Neg); Nitrite, Urine Neg (Neg); Protein, Urine Neg (Neg); Urobilinogen, Urine NORM (Normal)
[2022-11-27 15:52] LABS: Appearance, Urine Hazy (Clear)
[2022-11-27 16:00] VITALS: BP 112/78
[2022-11-27 16:08] LABS: Bacteria Few /hpf; Red Blood Cells, Urine 0-2 /hpf (0-2); Squamous Epithelial Cells Few /hpf (Few)
== END 2022-11-27 16:06 | disposition home or self-care (01) ==
LOC: ER 10:35
PROVIDERS: Emergency Medicine; Physician Assistant
DX: S43.402A Unspecified sprain of left shoulder joint, initial encounter (principal); S09.90XA Unspecified injury of head, initial encounter; E87.6 Hypokalemia; B19.20 Unspecified viral hepatitis C without hepatic coma; E03.9 Hypothyroidism, unspecified; I13.0 Hypertensive heart and chronic kidney disease with heart failure and stage 1 through stage 4 chronic kidney disease, or unspecified chronic kidney disease; N18.9 Chronic kidney disease, unspecified; I50.43 Acute on chronic combined systolic (congestive) and diastolic (congestive) heart failure; F17.210 Nicotine dependence, cigarettes, uncomplicated; W18.30XA Fall on same level, unspecified, initial encounter
CPT/HCPCS: 70450; 73030; 80053; 81001; 85025; 87077; 87086; 87186; 99284-25; A9270; G0480

== ENCOUNTER 2023-02-06 10:40 | Emergency (ER) | payer MEDICARE, OTHER ==
[~2023-02-06] VITALS: Ht 160 cm; Wt 79.4 kg
[2023-02-06 11:21] LABS: BASOPHILS ABSOLUTE AUTO 0.04 K/mm3 (0.00-0.23); BASOPHILS PERCENT AUTO 1 % (0-2); EOSINOPHILS ABSOLUTE AUTO 0.07 K/mm3 (0.00-0.68); EOSINOPHILS PERCENT AUTO 1 % (0-6); Hematocrit 43.5 % (33.0-51.0); Hemoglobin 14.5 g/dL (11.5-16.0); IMMATURE GRAN ABSOLUTE AUTO 0.02 K/mm3 (0.00-0.10); IMMATURE GRAN PERCENT AUTO 0 % (0-1); LYMPHOCYTES ABSOLUTE AUTO 1.35 K/mm3 (0.84-5.20); LYMPHOCYTES PERCENT AUTO 17 % (21-46); MONOCYTES ABSOLUTE AUTO 0.82 K/mm3 (0.16-1.47); MONOCYTES PERCENT AUTO 11 % (4-13); Mean Corpuscular HGB 34.1 pg (26.0-34.0); Mean Corpuscular HGB Conc 33.3 g/dL (31.5-36.5); Mean Corpuscular Volume 102 fL (80-100); Mean Platelet Volume 9.7 fL (9.1-12.4); NEUTROPHILS ABSOLUTE AUTO 5.49 K/mm3 (1.96-9.15); NEUTROPHILS PERCENT AUTO 71 % (41-73); Platelet Count 239 K/mm3 (150-400); RDW Coefficient Variation 13.5 % (11.7-14.2); RDW Standard Deviation 50.7 fL (35.1-46.3); Red Blood Cell Count 4.25 M/mm3 (3.80-5.20); White Blood Cell Count 7.79 K/mm3 (4.00-11.30)
[2023-02-06 11:32] LABS: Albumin, Blood 3.5 g/dL (3.4-5.0); Albumin/Globulin Ratio 0.8 (0.8-1.8); Bilirubin, Total 0.6 mg/dL (0.1-1.0); Calcium, Blood 8.8 mg/dL (8.5-10.1); Creatinine, Blood 0.64 mg/dL (0.40-1.00); Globulin, Blood 4.2 g/dL (2.2-4.0); Total Protein, Blood 7.7 g/dL (6.4-8.2)
[2023-02-06 11:58] LABS: Source, Urine Clean Catch
[2023-02-06 12:13] LABS: Appearance, Urine Clear (Clear); Bilirubin, Urine Neg (Neg); Blood, Urine Neg (Neg); Color, Urine Yellow (P-Yellow); Glucose Qualitative, Urine Neg (Neg); Ketones, Urine Neg (Neg); Leukocyte Esterase, Urine Neg (Neg); Nitrite, Urine Pos (Neg); Protein, Urine 1+ (Neg); Urobilinogen, Urine NORM (Normal)
[2023-02-06 12:22] LABS: Influenza A, PCR NEGATIVE (NEGATIVE); Influenza B, PCR NEGATIVE (NEGATIVE); Resp Syncytial Virus, PCR NEGATIVE (NEGATIVE); SARS-Cov-2 (COVID-19) PCR, MMC NEGATIVE (NEGATIVE)
[2023-02-06 12:28] LABS: Bacteria Many /hpf; Red Blood Cells, Urine 0-2 /hpf (0-2); Squamous Epithelial Cells Few /hpf (Few)
[2023-02-06 12:30] LABS: Mucus Light (0-Heavy)
[2023-02-06] MEDS ORDERED: CEPH500 PO ×2 (12:52→13:11)
[2023-02-06] MEDS ORDERED: AZIT250 PO ×2 (12:52→13:11)
[2023-02-06] MEDS ORDERED: PRED20 PO ×2 (12:52→13:11)
[2023-02-06] MEDS ORDERED: ALBU90OI INH ×2 (12:52→13:11)
[2023-02-06] MEDS ORDERED: PHENA200 PO ×2 (12:57→13:11)
[2023-02-06 13:29] VITALS: BP 149/86
[2023-02-06] MEDS ORDERED: ONDA4ODT MM (13:36)
== END 2023-02-06 13:37 | disposition home or self-care (01) ==
LOC: ER 10:40
PROVIDERS: Student in an Organized Health Care Education/Training Program
DX: J44.1 Chronic obstructive pulmonary disease with (acute) exacerbation (principal); N39.0 Urinary tract infection, site not specified; R11.2 Nausea with vomiting, unspecified; Z88.0 Allergy status to penicillin; Z88.1 Allergy status to other antibiotic agents; Z79.899 Other long term (current) drug therapy; Z79.52 Long term (current) use of systemic steroids; N18.9 Chronic kidney disease, unspecified; I13.0 Hypertensive heart and chronic kidney disease with heart failure and stage 1 through stage 4 chronic kidney disease, or unspecified chronic kidney disease; I50.9 Heart failure, unspecified; E03.9 Hypothyroidism, unspecified; I48.0 Paroxysmal atrial fibrillation; F17.210 Nicotine dependence, cigarettes, uncomplicated
CPT/HCPCS: 0241U; 71046; 80053; 81001; 83690; 84145; 85025; 87077; 87086; 87186; 94640; 94664; 96361; 96374; 96375; 99284-25; A9270; J1885; J2405; J3010; J7030; J7512

== ENCOUNTER 2023-03-11 08:57 | Inpatient (IN) | payer MEDICARE, OTHER ==
[~2023-03-11] VITALS: Ht 162.6 cm; Wt 87.9 kg
[~2023-03-11 08:57] MED LIST changes: +CEPH500 PO; -POTA10T; +POTA10T PO
[2023-03-11] MEDS ORDERED: FEROSUL325 M1 PO (09:31)
[2023-03-11 09:38] LABS: BASOPHILS ABSOLUTE AUTO 0.01 K/mm3 (0.00-0.23); BASOPHILS PERCENT AUTO 0 % (0-2); EOSINOPHILS ABSOLUTE AUTO 0.01 K/mm3 (0.00-0.68); EOSINOPHILS PERCENT AUTO 0 % (0-6); Hematocrit 42.4 % (33.0-51.0); Hemoglobin 15.5 g/dL (11.5-16.0); IMMATURE GRAN ABSOLUTE AUTO 0.02 K/mm3 (0.00-0.10); IMMATURE GRAN PERCENT AUTO 1 % (0-1); LYMPHOCYTES ABSOLUTE AUTO 0.77 K/mm3 (0.84-5.20); LYMPHOCYTES PERCENT AUTO 20 % (21-46); MONOCYTES PERCENT AUTO 13 % (4-13); Mean Corpuscular HGB 34.9 pg (26.0-34.0); Mean Corpuscular HGB Conc 36.6 g/dL (31.5-36.5); Mean Corpuscular Volume 96 fL (80-100); Mean Platelet Volume 8.9 fL (9.1-12.4); NEUTROPHILS ABSOLUTE AUTO 2.57 K/mm3 (1.96-9.15); NEUTROPHILS PERCENT AUTO 66 % (41-73); Platelet Count 153 K/mm3 (150-400); RDW Coefficient Variation 12.3 % (11.7-14.2); RDW Standard Deviation 42.5 fL (35.1-46.3); Red Blood Cell Count 4.44 M/mm3 (3.80-5.20); White Blood Cell Count 3.88 K/mm3 (4.00-11.30)
[2023-03-11 09:56] LABS: Albumin, Blood 3.4 g/dL (3.4-5.0); Albumin/Globulin Ratio 0.9 (0.8-1.8); Bilirubin, Total 0.5 mg/dL (0.1-1.0); Calcium, Blood 8.1 mg/dL (8.5-10.1); Creatinine, Blood 0.5 mg/dL (0.40-1.00); Globulin, Blood 3.8 g/dL (2.2-4.0); Potassium, Blood 3.4 mmol/L (3.5-5.5); Total Protein, Blood 7.2 g/dL (6.4-8.2)
[2023-03-11 15:46] VITALS: BP 141/98
[2023-03-11 16:58] LABS: Bun/Creatinine Ratio 6.8 (12.0-20.0); Calcium, Blood 8.7 mg/dL (8.5-10.1); Creatinine, Blood 0.73 mg/dL (0.40-1.00); Potassium, Blood 3.6 mmol/L (3.5-5.5)
--- NOTE | 2023-03-11 17:01 | NUR ---
ADMISSION/SHIFT SUMMARY: PT ARRIVED TO PCU 1 @1545. PT ABLE TO TRANSFER VIA ONE PERSON ASSIST FROM [facility]. PT ALERT AND ORIENTED X3, ABLE TO FOLLOW COMMANDS AND MAKE NEEDS KNOWN. FORGETFUL AT TIMES. POOR HISTORIAN. STRENGTH WEAK, EQUAL BILATERALLY. BP STABLE. HR PACED 110'S. AFEBRILE. SPO2 >98% ON 2L NC. LUNG SOUNDS WITH WHEEZES THROUGHOUT. PT SHORT OF BREATH WITH ANY ACTIVITY. RESP 22-24. BREATHING TREATMENT PROVIDED BY RT. PULSES STRONG AND EQUAL THROUGHOUT. PT WITH +1 EDEMA IN BLE. SBA TO AND FROM [facility]. PT WITH DIRRHEA, STATES CHRONIC. CALL PLACED TO PT DAUGHTER WITH UPDATE. DAUGHTER STATES PT IS EVERYDAY DRINKER APPROX 7-8 BEERS A DAY. DAUGHTER REPORTS PT WITH HISTORY OF ALCOHOL WITHDRAWL. SEIZURE PADS AND SUCTION AT BEDSIDE. BED ALARM ON FOR SAFETY. BED IN LOW, CALL LIGHT IN REACH, WILL REPORT TO ONCOMING RN.
[2023-03-11 20:16] VITALS: BP 134/92
[2023-03-11 23:46] VITALS: BP 141/115
[2023-03-12] VITALS (7 sets, daily range): BP systolic 121–163; BP diastolic 79–123
--- NOTE | 2023-03-12 03:33 | NUR ---
SHIFT SUMMARY PT HAS RESTED OFF AND ON T/O THE NIGHT. PT FORGETFUL, AND DOES NOT USE CALL LIGHT. HOWEVER, PT IS REDIRECTABLE AND FOLLOWS DIRECTIONS. PT HAS BEEN INCONTINENT OF URINE AND STOOL. TOTAL LINEN CHANGE REQUIRED THIS SHIFT. CIWA'S HAVE BEEN UNDER 8. 2L O2 IN PLACE, LUNGS COURSE WITH WHEEZES. OCCASIONAL COUGH. SATS WNL. BED IN LOWEST POSITION, CALL LIGHT WITHIN REACH.
[2023-03-12 04:16] LABS: BASOPHILS PERCENT AUTO 0 % (0-2); EOSINOPHILS PERCENT AUTO 0 % (0-6); Hematocrit 45.5 % (33.0-51.0); Hemoglobin 16.1 g/dL (11.5-16.0); IMMATURE GRAN ABSOLUTE AUTO 0.01 K/mm3 (0.00-0.10); IMMATURE GRAN PERCENT AUTO 0 % (0-1); LYMPHOCYTES ABSOLUTE AUTO 0.71 K/mm3 (0.84-5.20); LYMPHOCYTES PERCENT AUTO 18 % (21-46); MONOCYTES ABSOLUTE AUTO 0.66 K/mm3 (0.16-1.47); MONOCYTES PERCENT AUTO 16 % (4-13); Mean Corpuscular HGB 34.7 pg (26.0-34.0); Mean Corpuscular HGB Conc 35.4 g/dL (31.5-36.5); Mean Corpuscular Volume 98 fL (80-100); Mean Platelet Volume 9.4 fL (9.1-12.4); NEUTROPHILS ABSOLUTE AUTO 2.64 K/mm3 (1.96-9.15); NEUTROPHILS PERCENT AUTO 66 % (41-73); Platelet Count 171 K/mm3 (150-400); RDW Coefficient Variation 12.5 % (11.7-14.2); RDW Standard Deviation 44.8 fL (35.1-46.3); Red Blood Cell Count 4.64 M/mm3 (3.80-5.20); White Blood Cell Count 4.02 K/mm3 (4.00-11.30)
[2023-03-12 04:48] LABS: Albumin, Blood 3.3 g/dL (3.4-5.0); Albumin/Globulin Ratio 0.8 (0.8-1.8); Bilirubin, Total 0.4 mg/dL (0.1-1.0); Bun/Creatinine Ratio 14.6 (12.0-20.0); Calcium, Blood 9.2 mg/dL (8.5-10.1); Creatinine, Blood 0.89 mg/dL (0.40-1.00); Globulin, Blood 4.1 g/dL (2.2-4.0); Potassium, Blood 3.3 mmol/L (3.5-5.5); Total Protein, Blood 7.4 g/dL (6.4-8.2)
[2023-03-12] MEDS ORDERED: CARV25 PO (11:20)
--- NOTE | 2023-03-12 16:23 | NUR ---
SHIFT SUMMARY PT REMAINS ALERT AND ORIENTED. BP STABLE. HR REMAINS AFIB. PT ON 2L NC MOST OF SHIFT WITH SATS >90%. PT HAS DENIED PAIN. PT ABLE TO AMBULATE TO BSC NEEDED TO VOID WITH SBA. REPORT GIVEN TO AMIRAH PEREZ TO ASSUME CARE
--- NOTE | 2023-03-13 03:38 | NUR ---
SHIFT SUMMARY NO ACUTE CHANGES TO REPORT OVERNIGHT, PT HAS RESTED T/O THE NIGHT. CIWA'S UNDER 8, VITALS ARE STABLE. PT MAITAINING SATS ON 1L O2. PT MAKES NEEDS KNOWN, CALL LIGHT WITHIN REACH.
[2023-03-13 04:32] LABS: BASOPHILS ABSOLUTE AUTO 0.01 K/mm3 (0.00-0.23); BASOPHILS PERCENT AUTO 0 % (0-2); EOSINOPHILS ABSOLUTE AUTO 0.01 K/mm3 (0.00-0.68); EOSINOPHILS PERCENT AUTO 0 % (0-6); Hematocrit 44.7 % (33.0-51.0); Hemoglobin 15.5 g/dL (11.5-16.0); IMMATURE GRAN ABSOLUTE AUTO 0.02 K/mm3 (0.00-0.10); IMMATURE GRAN PERCENT AUTO 0 % (0-1); LYMPHOCYTES ABSOLUTE AUTO 1.86 K/mm3 (0.84-5.20); LYMPHOCYTES PERCENT AUTO 34 % (21-46); MONOCYTES ABSOLUTE AUTO 0.68 K/mm3 (0.16-1.47); MONOCYTES PERCENT AUTO 12 % (4-13); Mean Corpuscular HGB 34.8 pg (26.0-34.0); Mean Corpuscular HGB Conc 34.7 g/dL (31.5-36.5); Mean Corpuscular Volume 100 fL (80-100); Mean Platelet Volume 9.3 fL (9.1-12.4); NEUTROPHILS ABSOLUTE AUTO 2.92 K/mm3 (1.96-9.15); NEUTROPHILS PERCENT AUTO 53 % (41-73); Platelet Count 167 K/mm3 (150-400); RDW Coefficient Variation 12.7 % (11.7-14.2); Red Blood Cell Count 4.46 M/mm3 (3.80-5.20)
[2023-03-13 04:51] LABS: Bun/Creatinine Ratio 19.5 (12.0-20.0); Calcium, Blood 8.9 mg/dL (8.5-10.1); Creatinine, Blood 0.82 mg/dL (0.40-1.00); Potassium, Blood 3.4 mmol/L (3.5-5.5)
[2023-03-13 05:18] VITALS: BP 103/87
[2023-03-13 08:18] VITALS: BP 139/120
--- NOTE | 2023-03-13 13:33 | NUR ---
UPDATE PT REMAINS ALERT AND ORIENTED. VS STABLE. PT TITRATED TO ROOM AIR WITH SATS REMAINING ABOVE 90%. HR REMAINS AFIB. PT DENIES ANY PAIN. PT ABLE TO GET UP AND AMBULATE TO BATHROOM TO VOID NEEDED. BED ASSIGNMENT PROVIDED ON MEDICAL FLOOR. REPORT GIVEN TO THERESA PEREZ. PT BROUGHT UP TO NEW ROOM VIA WITH ALL OF HER BELONGINGS.
--- NOTE | 2023-03-13 15:51 | NUR ---
SHIFT SUMMARY 1320 RECEIVED PT TO RM 311 VIA W/C FROM PCU 1. PT ABLE TO TX SELF TO BED. SBA TO BTHRM. UP INDEPENDENTLY TO BSC. RECEIVED REPORT FROM VIJAYA RN, PT ADMITTED FOR HYPONATREMIA; IMPROVING. FREE WATER RESTRICTION @ 1L. POSSIBLE D/C TO HOME TOMORROW. SOME FORGETFULNESS, DAILY DRINKER. MEDICATED FOR CIWA 8-10; IMPROVED. LUNGS T/O WITH EXP WHEEZES THRU OUT. ON RA, BIOX WNL'S. DAILY SMOKER; LIGHTERS LOCKED UP WITH SECURITY. LIKES PEPSI AND YOGURT. DENIES FURTHER NEEDS AT THIS TIME. CALL LT IN REACH.
[2023-03-13 20:10] VITALS: BP 115/78
[2023-03-14 05:17] VITALS: BP 154/119
[2023-03-14 05:25] LABS: Bun/Creatinine Ratio 18.2 (12.0-20.0); Creatinine, Blood 0.66 mg/dL (0.40-1.00); Potassium, Blood 3.7 mmol/L (3.5-5.5)
--- NOTE | 2023-03-14 05:55 | NUR ---
SHIFT SUMMARY PT ALERT, COOPERATIVE WITH CARE. PT COUGHING T/O THE NIGHT-MEDICATED PER EMAR WHICH PT STATES WAS EFFECTIVE. CIWA COMPLETED AND STABLE AT THIS TIME. TELEMETRY: AFIB 90-110. DENIES ANY CP OR PRESSURE AT THIS TIME. REGULAR DIET. FREE WATER RESTRICTION OF 1000 ML MAINTAINED. BOIX IN PLACE WITH SATS ABOVE 92%. PT IS VERY WHEEZY WITH COARSE LUNGS. RT TO BEDSIDE FOR TREATMENTS. PT TO BE DISCHARGED TO HOME WITH NEBULIZER POSSIBLY TODAY. BED KEPT IN LOWEST POSITION WITH CALL LIGHT WITHIN REACH. WILL CONTINUE TO MONITOR.
[2023-03-14 07:41] VITALS: BP 144/99
[2023-03-14] MEDS ORDERED: METO50 PO (11:41)
[2023-03-14] MEDS ORDERED: NICO21TP TOP (11:41)
[2023-03-14] MEDS ORDERED: DELTASONE20 MG PO (11:42)
[2023-03-14] MEDS ORDERED: SPIR25 PO (11:43)
[2023-03-14] MEDS ORDERED: B-1100 M1 PO (11:44)
[2023-03-14] MEDS ORDERED: IPRAT-ALBUT 0.5-3 ML INH (11:45)
[2023-03-14] MEDS ORDERED: SOAANZ20 M1 PO (11:46)
--- NOTE | 2023-03-14 12:53 | NUR ---
DISCHARGE NOTE: PT'S DAUGHTER ANMOL ARRIVED TO BRING THE PATIENT HOME. DISCHARGE DISCUSSED WITH THE DAUGHTER AND PATIENT. DISCHARGE SIGNED BY DAUGHTER. MEDS REFAXED TO CORRECT PHARMACY; [facility]. PATIENT'S BELONGINGS WERE COLLECTED AND PATIENT'S DAUGHTER WHEELED PATIENT OUT OF UNIT VIA WHEELCHAIR. SHE WILL STOP BU SECURITY AND GET THE PATIENT'S LIGHTERS. NO SIGNS OR SYMPTOMS OF DISTRESS WITH DISCHARGE.
== END 2023-03-14 13:03 | disposition home or self-care (01) | DRG 191 ==
LOC: ER 08:57 → ERHOLD 11:58 → PCU 15:32 → MEDS 03-13 12:55 → ENPENDDIS 03-14 11:33 → MEDS 03-14 13:03
PROVIDERS: Emergency Medicine; Family Medicine; ADMIT Hospitalist
DX: J44.1 Chronic obstructive pulmonary disease with (acute) exacerbation (principal); E87.1 Hypo-osmolality and hyponatremia; I42.9 Cardiomyopathy, unspecified; I50.42 Chronic combined systolic (congestive) and diastolic (congestive) heart failure; I13.0 Hypertensive heart and chronic kidney disease with heart failure and stage 1 through stage 4 chronic kidney disease, or unspecified chronic kidney disease; E87.6 Hypokalemia; F17.210 Nicotine dependence, cigarettes, uncomplicated; N18.30 Chronic kidney disease, stage 3 unspecified; F10.20 Alcohol dependence, uncomplicated; R56.9 Unspecified convulsions; F31.9 Bipolar disorder, unspecified; F90.9 Attention-deficit hyperactivity disorder, unspecified type; I48.91 Unspecified atrial fibrillation; Z88.0 Allergy status to penicillin; Z95.810 Presence of automatic (implantable) cardiac defibrillator; Z88.1 Allergy status to other antibiotic agents; Z79.01 Long term (current) use of anticoagulants; Z71.6 Tobacco abuse counseling
CPT/HCPCS: 36415; 71045; 80048; 80053; 83735; 83880; 84484; 85025; 93005; 93010; 94640; 94644; 94664; 94760; 96374; 96375; 97162; 97530; 99285-25; A9270; J1940; J2930; J7512

== ENCOUNTER 2023-04-01 10:33 | Emergency (ER) | payer OTHER, MEDICARE ==
[~2023-04-01] VITALS: Ht 165.1 cm; Wt 90.7 kg
[~2023-04-01 10:33] MED LIST changes: +CARV25 PO; +DELTASONE20 MG PO; +FEROSUL325 M1 PO; +IPRAT-ALBUT 0.5-3 ML INH; +METO50 PO; +NICO21TP TOP; +SOAANZ20 M1 PO
[2023-04-01 11:11] LABS: BASOPHILS ABSOLUTE AUTO 0.04 K/mm3 (0.00-0.23); BASOPHILS PERCENT AUTO 0 % (0-2); EOSINOPHILS ABSOLUTE AUTO 0.03 K/mm3 (0.00-0.68); EOSINOPHILS PERCENT AUTO 0 % (0-6); Hematocrit 46.2 % (33.0-51.0); Hemoglobin 16.1 g/dL (11.5-16.0); IMMATURE GRAN ABSOLUTE AUTO 0.04 K/mm3 (0.00-0.10); IMMATURE GRAN PERCENT AUTO 0 % (0-1); LYMPHOCYTES ABSOLUTE AUTO 1.29 K/mm3 (0.84-5.20); LYMPHOCYTES PERCENT AUTO 12 % (21-46); MONOCYTES ABSOLUTE AUTO 0.86 K/mm3 (0.16-1.47); MONOCYTES PERCENT AUTO 8 % (4-13); Mean Corpuscular HGB 35.5 pg (26.0-34.0); Mean Corpuscular HGB Conc 34.8 g/dL (31.5-36.5); Mean Corpuscular Volume 102 fL (80-100); Mean Platelet Volume 9.3 fL (9.1-12.4); NEUTROPHILS ABSOLUTE AUTO 8.19 K/mm3 (1.96-9.15); NEUTROPHILS PERCENT AUTO 78 % (41-73); Platelet Count 231 K/mm3 (150-400); RDW Coefficient Variation 12.4 % (11.7-14.2); RDW Standard Deviation 46.7 fL (35.1-46.3); Red Blood Cell Count 4.54 M/mm3 (3.80-5.20); White Blood Cell Count 10.45 K/mm3 (4.00-11.30)
[2023-04-01 11:32] LABS: Albumin, Blood 3.3 g/dL (3.4-5.0); Albumin/Globulin Ratio 0.9 (0.8-1.8); Bilirubin, Total 0.9 mg/dL (0.1-1.0); Bun/Creatinine Ratio 10.8 (12.0-20.0); Calcium, Blood 8.8 mg/dL (8.5-10.1); Creatinine, Blood 0.83 mg/dL (0.40-1.00); Globulin, Blood 3.8 g/dL (2.2-4.0); Potassium, Blood 4.1 mmol/L (3.5-5.5); Total Protein, Blood 7.1 g/dL (6.4-8.2)
[2023-04-01 14:51] VITALS: BP 99/85
== END 2023-04-01 14:52 | disposition home or self-care (01) ==
LOC: ER 10:33
PROVIDERS: Physician Assistant
DX: S00.83XA Contusion of other part of head, initial encounter (principal); F10.129 Alcohol abuse with intoxication, unspecified; Z79.01 Long term (current) use of anticoagulants; Y90.5 Blood alcohol level of 100-119 mg/100 ml; I48.0 Paroxysmal atrial fibrillation; E87.1 Hypo-osmolality and hyponatremia; E87.8 Other disorders of electrolyte and fluid balance, not elsewhere classified; I13.0 Hypertensive heart and chronic kidney disease with heart failure and stage 1 through stage 4 chronic kidney disease, or unspecified chronic kidney disease; I50.42 Chronic combined systolic (congestive) and diastolic (congestive) heart failure; N18.9 Chronic kidney disease, unspecified; Z95.810 Presence of automatic (implantable) cardiac defibrillator; F31.9 Bipolar disorder, unspecified; E03.9 Hypothyroidism, unspecified; F90.9 Attention-deficit hyperactivity disorder, unspecified type; F17.210 Nicotine dependence, cigarettes, uncomplicated; Z79.52 Long term (current) use of systemic steroids; Z79.899 Other long term (current) drug therapy; Z88.0 Allergy status to penicillin; Z88.1 Allergy status to other antibiotic agents; W01.0XXA Fall on same level from slipping, tripping and stumbling without subsequent striking against object, initial encounter; Y92.009 Unspecified place in unspecified non-institutional (private) residence as the place of occurrence of the external cause
CPT/HCPCS: 70450; 80053; 85025; 93005; 93010; 96360; 99284-25; J7030

== ENCOUNTER 2023-04-12 12:16 | Emergency (ER) | payer MEDICARE, OTHER ==
[~2023-04-12] VITALS: Ht 165.1 cm; Wt 94.8 kg
[~2023-04-12 12:16] MED LIST changes: -CARV25 PO
[2023-04-12 12:19] VITALS: BP 119/98
[2023-04-12] MEDS ORDERED: TRIDERM28.4 GM TOP (12:22)
[2023-04-13] MEDS ORDERED: CEPH500 PO (00:28)
[2023-04-13] MEDS ORDERED: ONDA4ODT MM (18:31)
== END 2023-04-12 12:25 | disposition home or self-care (01) ==
LOC: ER 12:16
DX: E87.6 Hypokalemia (principal); R11.2 Nausea with vomiting, unspecified; L03.115 Cellulitis of right lower limb; R19.7 Diarrhea, unspecified; R41.0 Disorientation, unspecified; R29.6 Repeated falls; J44.9 Chronic obstructive pulmonary disease, unspecified; I48.91 Unspecified atrial fibrillation; I11.0 Hypertensive heart disease with heart failure; I50.9 Heart failure, unspecified; F17.210 Nicotine dependence, cigarettes, uncomplicated; Z79.01 Long term (current) use of anticoagulants; Z79.51 Long term (current) use of inhaled steroids; Z79.890 Hormone replacement therapy; Z79.899 Other long term (current) drug therapy
CPT/HCPCS: 99282; 99284-25

== ENCOUNTER 2023-04-12 17:26 | Emergency (ER) | payer MEDICARE ==
[~2023-04-12] VITALS: Ht 165.1 cm; Wt 95.2 kg
[~2023-04-12 17:26] MED LIST changes: +CARV25 PO; +TRIDERM28.4 GM TOP
[2023-04-12 22:10] LABS: BASOPHILS ABSOLUTE AUTO 0.04 K/mm3 (0.00-0.23); BASOPHILS PERCENT AUTO 1 % (0-2); EOSINOPHILS ABSOLUTE AUTO 0.06 K/mm3 (0.00-0.68); EOSINOPHILS PERCENT AUTO 1 % (0-6); Hematocrit 40.8 % (33.0-51.0); Hemoglobin 13.4 g/dL (11.5-16.0); IMMATURE GRAN ABSOLUTE AUTO 0.04 K/mm3 (0.00-0.10); IMMATURE GRAN PERCENT AUTO 1 % (0-1); LYMPHOCYTES PERCENT AUTO 19 % (21-46); MONOCYTES ABSOLUTE AUTO 0.72 K/mm3 (0.16-1.47); MONOCYTES PERCENT AUTO 9 % (4-13); Mean Corpuscular HGB Conc 32.8 g/dL (31.5-36.5); Mean Corpuscular Volume 107 fL (80-100); Mean Platelet Volume 9.7 fL (9.1-12.4); NEUTROPHILS ABSOLUTE AUTO 5.81 K/mm3 (1.96-9.15); NEUTROPHILS PERCENT AUTO 70 % (41-73); Platelet Count 227 K/mm3 (150-400); RDW Coefficient Variation 12.7 % (11.7-14.2); Red Blood Cell Count 3.83 M/mm3 (3.80-5.20); White Blood Cell Count 8.27 K/mm3 (4.00-11.30)
[2023-04-12 22:20] LABS: Albumin, Blood 3.2 g/dL (3.4-5.0); Albumin/Globulin Ratio 0.9 (0.8-1.8); Bilirubin, Total 0.6 mg/dL (0.1-1.0); Bun/Creatinine Ratio 16.6 (12.0-20.0); Calcium, Blood 8.7 mg/dL (8.5-10.1); Creatinine, Blood 0.78 mg/dL (0.40-1.00); Globulin, Blood 3.7 g/dL (2.2-4.0); Potassium, Blood 3.5 mmol/L (3.5-5.5); Total Protein, Blood 6.9 g/dL (6.4-8.2)
[2023-04-13] MEDS ORDERED: CEPH500 PO (00:28)
[2023-04-13 00:43] VITALS: BP 124/84
[2023-04-13] MEDS ORDERED: ONDA4ODT MM (18:31)
== END 2023-04-13 00:42 | disposition home or self-care (01) ==
LOC: ER 17:26
PROVIDERS: Physician Assistant
DX: L03.115 Cellulitis of right lower limb (principal); Z88.0 Allergy status to penicillin; Z88.1 Allergy status to other antibiotic agents; Z79.899 Other long term (current) drug therapy; N18.9 Chronic kidney disease, unspecified; I13.0 Hypertensive heart and chronic kidney disease with heart failure and stage 1 through stage 4 chronic kidney disease, or unspecified chronic kidney disease; I50.9 Heart failure, unspecified; E03.9 Hypothyroidism, unspecified; I48.0 Paroxysmal atrial fibrillation; I89.0 Lymphedema, not elsewhere classified
CPT/HCPCS: 80053; 85025; 93005; 93010; 93971; 99284-25; A9270

== ENCOUNTER 2023-04-13 15:59 | Emergency (ER) | payer MEDICARE ==
[~2023-04-13] VITALS: Ht 162.6 cm; Wt 99.8 kg
[~2023-04-13 15:59] MED LIST changes: -CARV25 PO
[2023-04-13] MEDS ORDERED: Ondansetron 4 MG SoluTab SL ONE (16:20)
[2023-04-13 17:43] LABS: BASOPHILS ABSOLUTE AUTO 0.03 K/mm3 (0.00-0.23); BASOPHILS PERCENT AUTO 0 % (0-2); EOSINOPHILS ABSOLUTE AUTO 0.03 K/mm3 (0.00-0.68); EOSINOPHILS PERCENT AUTO 0 % (0-6); Hematocrit 40.3 % (33.0-51.0); Hemoglobin 13.3 g/dL (11.5-16.0); IMMATURE GRAN ABSOLUTE AUTO 0.03 K/mm3 (0.00-0.10); IMMATURE GRAN PERCENT AUTO 0 % (0-1); LYMPHOCYTES PERCENT AUTO 14 % (21-46); MONOCYTES ABSOLUTE AUTO 0.66 K/mm3 (0.16-1.47); MONOCYTES PERCENT AUTO 8 % (4-13); Mean Corpuscular HGB 34.6 pg (26.0-34.0); Mean Corpuscular Volume 105 fL (80-100); Mean Platelet Volume 9.1 fL (9.1-12.4); NEUTROPHILS ABSOLUTE AUTO 6.29 K/mm3 (1.96-9.15); NEUTROPHILS PERCENT AUTO 77 % (41-73); Platelet Count 227 K/mm3 (150-400); RDW Coefficient Variation 12.3 % (11.7-14.2); RDW Standard Deviation 47.6 fL (35.1-46.3); Red Blood Cell Count 3.84 M/mm3 (3.80-5.20); White Blood Cell Count 8.14 K/mm3 (4.00-11.30)
[2023-04-13 17:52] LABS: Source, Urine Clean Catch
[2023-04-13 17:58] LABS: Appearance, Urine Hazy (Clear); Blood, Urine 2+ (Neg); Color, Urine Yellow (P-Yellow); Glucose Qualitative, Urine Neg (Neg); Ketones, Urine 1+ (Neg); Leukocyte Esterase, Urine 1+ (Neg); Nitrite, Urine Neg (Neg); Protein, Urine 2+ (Neg); Urobilinogen, Urine 2+ (Normal)
[2023-04-13 18:04] LABS: Albumin, Blood 2.8 g/dL (3.4-5.0); Albumin/Globulin Ratio 0.8 (0.8-1.8); Bilirubin, Total 0.9 mg/dL (0.1-1.0); Calcium, Blood 8.3 mg/dL (8.5-10.1); Creatinine, Blood 0.59 mg/dL (0.40-1.00); Globulin, Blood 3.3 g/dL (2.2-4.0); Potassium, Blood 3.1 mmol/L (3.5-5.5); Total Protein, Blood 6.1 g/dL (6.4-8.2)
[2023-04-13 18:05] LABS: Bilirubin, Urine 1+ (Neg)
[2023-04-13] MEDS ORDERED: Simethicone 80 MG Chew PO ONE (18:05)
[2023-04-13 18:07] LABS: Bacteria Many /hpf; Squamous Epithelial Cells Few /hpf (Few)
[2023-04-13] MEDS ORDERED: Potassium Chloride 10 Meq Tablet SA PO ONE (18:10)
[2023-04-13] MEDS ORDERED: Potassium Chloride 40 MEQ in NS 250 ML IV ONE (18:10)
[2023-04-13] MEDS ORDERED: NS 1,000 ML IV SCH (18:10)
[2023-04-13] MEDS ORDERED: Prochlorperazine Edisylate 10 mg Vial IV ONE (18:15)
[2023-04-13] MEDS ORDERED: ONDA4ODT MM (18:31)
[2023-04-13 20:26] VITALS: BP 171/114
== END 2023-04-13 21:01 | disposition home or self-care (01) ==
LOC: ER 15:59
PROVIDERS: Student in an Organized Health Care Education/Training Program
DX: E87.6 Hypokalemia (principal); R11.2 Nausea with vomiting, unspecified; J44.9 Chronic obstructive pulmonary disease, unspecified; I48.91 Unspecified atrial fibrillation; I11.0 Hypertensive heart disease with heart failure; I50.9 Heart failure, unspecified; F17.210 Nicotine dependence, cigarettes, uncomplicated
CPT/HCPCS: 70450; 80053; 81001; 82140; 85025; 87086; 96361; 96365; 96366; 99284-25; A9270; J0780; J3480; J7030; J7050

== ENCOUNTER 2023-04-20 18:49 | Emergency (ER) | payer MEDICARE ==
[~2023-04-20] VITALS: Ht 167.6 cm; Wt 102.1 kg
[~2023-04-20 18:49] MED LIST changes: +CARV25 PO
[2023-04-20 19:56] LABS: BASOPHILS ABSOLUTE AUTO 0.05 K/mm3 (0.00-0.23); BASOPHILS PERCENT AUTO 0 % (0-2); EOSINOPHILS ABSOLUTE AUTO 0.03 K/mm3 (0.00-0.68); EOSINOPHILS PERCENT AUTO 0 % (0-6); Hemoglobin 14.7 g/dL (11.5-16.0); IMMATURE GRAN ABSOLUTE AUTO 0.09 K/mm3 (0.00-0.10); IMMATURE GRAN PERCENT AUTO 1 % (0-1); LYMPHOCYTES ABSOLUTE AUTO 1.63 K/mm3 (0.84-5.20); LYMPHOCYTES PERCENT AUTO 11 % (21-46); MONOCYTES ABSOLUTE AUTO 0.83 K/mm3 (0.16-1.47); MONOCYTES PERCENT AUTO 6 % (4-13); Mean Corpuscular HGB 34.4 pg (26.0-34.0); Mean Corpuscular HGB Conc 33.4 g/dL (31.5-36.5); Mean Corpuscular Volume 103 fL (80-100); Mean Platelet Volume 9.6 fL (9.1-12.4); NEUTROPHILS ABSOLUTE AUTO 12.47 K/mm3 (1.96-9.15); NEUTROPHILS PERCENT AUTO 83 % (41-73); Platelet Count 397 K/mm3 (150-400); RDW Coefficient Variation 12.8 % (11.7-14.2); RDW Standard Deviation 48.6 fL (35.1-46.3); Red Blood Cell Count 4.27 M/mm3 (3.80-5.20)
[2023-04-20 20:10] LABS: International Normalized Ratio 1.03; Prothrombin Time Results 10.8 Sec (9.7-11.5)
[2023-04-20 20:24] LABS: Alanine Aminotransfer (ALT/SGP 36 U/L (12-78); Albumin, Blood 3.3 g/dL (3.4-5.0); Albumin/Globulin Ratio 0.8 (0.8-1.8); Alk Phos 107 U/L (50-136); Anion Gap 7 mmol/L (6-16); Aspartate Aminotrans (AST/SGOT 54 U/L (12-37); Bilirubin, Total 0.5 mg/dL (0.1-1.0); Blood Urea Nitrogen 12 mg/dL (8-24); Bun/Creatinine Ratio 14.1 (12.0-20.0); CO2, Blood 29 mmol/L (21-32); Calcium, Blood 9.2 mg/dL (8.5-10.1); Chloride, Blood 102 mmol/L (98-108); Creatinine, Blood 0.85 mg/dL (0.40-1.00); Ethanol (Alcohol), Blood, Med <3 mg/dL; Globulin, Blood 4.3 g/dL (2.2-4.0); Glomerular Filtration Rate 76 (60-); Glucose, Blood 208 mg/dL (70-99); Magnesium, Blood 1.8 mg/dL (1.6-2.4); Potassium, Blood 3.6 mmol/L (3.5-5.5); Sodium, Blood 138 mmol/L (136-145); Total Protein, Blood 7.6 g/dL (6.4-8.2)
[2023-04-20 21:15] LABS: Influenza A, PCR NEGATIVE (NEGATIVE); Influenza B, PCR NEGATIVE (NEGATIVE); Resp Syncytial Virus, PCR NEGATIVE (NEGATIVE); SARS-Cov-2 (COVID-19) PCR, MMC NEGATIVE (NEGATIVE)
[2023-04-20 22:11] VITALS: BP 122/89
[2023-04-21] MEDS ORDERED: GABA300 PO (22:14)
[2023-04-21] MEDS ORDERED: FLUTICASONE-SA1 EAC9 INH (22:16)
[2023-04-21] MEDS ORDERED: MULVITA PO (22:16)
[2023-04-21] MEDS ORDERED: METO50ER PO (22:17)
== END 2023-04-20 22:20 | disposition home or self-care (01) ==
LOC: ER 18:49
PROVIDERS: Emergency Medicine
DX: I48.91 Unspecified atrial fibrillation (principal); I13.0 Hypertensive heart and chronic kidney disease with heart failure and stage 1 through stage 4 chronic kidney disease, or unspecified chronic kidney disease; I50.9 Heart failure, unspecified; N18.9 Chronic kidney disease, unspecified; Z95.810 Presence of automatic (implantable) cardiac defibrillator; Z11.52 Encounter for screening for COVID-19; F17.210 Nicotine dependence, cigarettes, uncomplicated; Z79.899 Other long term (current) drug therapy; Z79.890 Hormone replacement therapy; Z79.52 Long term (current) use of systemic steroids; Z79.02 Long term (current) use of antithrombotics/antiplatelets
CPT/HCPCS: 0241U; 71045; 80053; 83735; 83880; 84484; 85025; 85610; 93005; 93010; 94640; 94664; 96374; 96375; 99285-25

== ENCOUNTER 2023-04-21 19:19 | Inpatient (IN) | payer MEDICARE ==
[~2023-04-21] VITALS: Ht 165.1 cm; Wt 92.7 kg
[~2023-04-21 19:19] MED LIST changes: -CARV25 PO
[2023-04-21 20:08] LABS: BASOPHILS ABSOLUTE AUTO 0.02 K/mm3 (0.00-0.23); BASOPHILS PERCENT AUTO 0 % (0-2); EOSINOPHILS PERCENT AUTO 0 % (0-6); Hemoglobin 14.5 g/dL (11.5-16.0); IMMATURE GRAN ABSOLUTE AUTO 0.07 K/mm3 (0.00-0.10); IMMATURE GRAN PERCENT AUTO 1 % (0-1); LYMPHOCYTES ABSOLUTE AUTO 1.53 K/mm3 (0.84-5.20); LYMPHOCYTES PERCENT AUTO 11 % (21-46); MONOCYTES ABSOLUTE AUTO 0.72 K/mm3 (0.16-1.47); MONOCYTES PERCENT AUTO 5 % (4-13); Mean Corpuscular HGB 34.4 pg (26.0-34.0); Mean Corpuscular HGB Conc 33.7 g/dL (31.5-36.5); Mean Corpuscular Volume 102 fL (80-100); Mean Platelet Volume 9.7 fL (9.1-12.4); NEUTROPHILS ABSOLUTE AUTO 11.74 K/mm3 (1.96-9.15); NEUTROPHILS PERCENT AUTO 83 % (41-73); Platelet Count 345 K/mm3 (150-400); RDW Coefficient Variation 12.9 % (11.7-14.2); RDW Standard Deviation 47.9 fL (35.1-46.3); Red Blood Cell Count 4.21 M/mm3 (3.80-5.20); White Blood Cell Count 14.08 K/mm3 (4.00-11.30)
[2023-04-21 20:36] LABS: Albumin/Globulin Ratio 0.7 (0.8-1.8); Bilirubin, Total 0.7 mg/dL (0.1-1.0); Bun/Creatinine Ratio 23.4 (12.0-20.0); Calcium, Blood 9.1 mg/dL (8.5-10.1); Creatinine, Blood 0.9 mg/dL (0.40-1.00); Globulin, Blood 4.3 g/dL (2.2-4.0); Total Protein, Blood 7.3 g/dL (6.4-8.2)
[2023-04-21] MEDS ORDERED: GABA300 PO (22:14)
[2023-04-21] MEDS ORDERED: MULVITA PO (22:16)
[2023-04-21] MEDS ORDERED: FLUTICASONE-SA1 EAC9 INH (22:16)
[2023-04-21] MEDS ORDERED: METO50ER PO (22:17)
[2023-04-21 23:30] VITALS: BP 155/137
[2023-04-21 23:45] VITALS: BP 141/124
[2023-04-22] VITALS (21 sets, daily range): BP systolic 89–157; BP diastolic 54–128
--- NOTE | 2023-04-22 00:30 | NUR ---
ARRIVAL TO ICU PT ARRIVED TO ICU 11 AT 2330 VIA ED BED AND TRANSFERED OVER TO ICU BED VIA SLIDE SHEET. SHE IS A/O X3-4, VERY IRRITABLE AND EASILY ANXIOUS; FREQUENTLY ASKS TO HAVE BIPAP MASK OFF; DAUGHTER AT BEDSIDE WHO IS HELPFUL IN REDIRECTING PT ATTENTION. BIPAP SETTINGS 29/10 WITH A 3L BLEED IN TITRATED UP TO 5L BLEED IN TO MAINTAIN SPO2 >90%; TACHYPNIC NOTED WITH RR 30-40'S; ACCESSORY MUSCLE USE NOTED. AFIB WITH RVR CONT WITH RATE 120-160'S; AMIODERONE INFUSING AT 1MG/MIN. SBP 130-150'S. PT C/O NAUSEA, PRN ZOFRAN GIVEN AND HELPFUL. NO URINE OUTPUT AT THIS TIME. SHE IS COOL, DIAPHORETIC AND CLAMMY; PURPLE DISCOLORATION NOTED TO FINGERS AND TOES. SEE ADMISSION ASSESSMENT FOR FULL ASSESSMENT. CALL MADE TO DR LORD REGARDING PT ANXIETY RELATED TO THE BIPAP MASK. NEW ORDERS PROVIDED FOR ATIVAN IV; 0.5MG GIVEN AND HELPFUL.
--- NOTE | 2023-04-22 02:19 | NUR ---
UPDATE CALL MADE TO DR LORD REGARDING URINE OUTPUT. PT HAS NOT HAD URINE OUTPUT SINCE LASIX GIVEN IN ED AT 2200. BLADDER SCAN COMPLETED THAT SHOWED 260. HE PROVIDED ORDERS FOR AN ADDITIONAL 60MG OF LASIX AND TO PLACE A HARRY IF THE PATIENT WOULD TOLERATE IT. WILL CONT CARE.
[2023-04-22 02:38] LABS: Influenza A, PCR NEGATIVE (NEGATIVE); Influenza B, PCR NEGATIVE (NEGATIVE); Resp Syncytial Virus, PCR NEGATIVE (NEGATIVE); SARS-Cov-2 (COVID-19) PCR, MMC NEGATIVE (NEGATIVE)
--- NOTE | 2023-04-22 04:21 | NUR ---
UPDATE AN HOUR AFTER SECOND LASIX WAS GIVEN, BLADDER SCAN COMPLETED THAT SHOWED 150ML'S. HARRY PLACED AT 0400 WITH 10ML URINE OUTPUT. SAMPLE SENT TO LAB. PLAN TO CALL HOSPITALIST REGARDING LACK OF URINE OUTPUT.
[2023-04-22 04:32] LABS: Source, Urine Foley catheter
[2023-04-22 04:32] LABS: BASOPHILS ABSOLUTE AUTO 0.03 K/mm3 (0.00-0.23); BASOPHILS PERCENT AUTO 0 % (0-2); EOSINOPHILS PERCENT AUTO 0 % (0-6); Hematocrit 48.9 % (33.0-51.0); IMMATURE GRAN ABSOLUTE AUTO 0.14 K/mm3 (0.00-0.10); IMMATURE GRAN PERCENT AUTO 1 % (0-1); LYMPHOCYTES ABSOLUTE AUTO 0.73 K/mm3 (0.84-5.20); LYMPHOCYTES PERCENT AUTO 5 % (21-46); MONOCYTES ABSOLUTE AUTO 1.28 K/mm3 (0.16-1.47); MONOCYTES PERCENT AUTO 9 % (4-13); Mean Corpuscular HGB 34.4 pg (26.0-34.0); Mean Corpuscular HGB Conc 32.7 g/dL (31.5-36.5); Mean Corpuscular Volume 105 fL (80-100); Mean Platelet Volume 9.9 fL (9.1-12.4); NEUTROPHILS ABSOLUTE AUTO 12.96 K/mm3 (1.96-9.15); NEUTROPHILS PERCENT AUTO 86 % (41-73); Platelet Count 375 K/mm3 (150-400); RDW Coefficient Variation 12.9 % (11.7-14.2); RDW Standard Deviation 49.7 fL (35.1-46.3); Red Blood Cell Count 4.65 M/mm3 (3.80-5.20); White Blood Cell Count 15.14 K/mm3 (4.00-11.30)
[2023-04-22 04:33] LABS: Bilirubin, Urine Neg (Neg); Blood, Urine Neg (Neg); Glucose Qualitative, Urine Neg (Neg); Ketones, Urine Neg (Neg); Leukocyte Esterase, Urine Neg (Neg); Nitrite, Urine Neg (Neg); Protein, Urine 3+ (Neg); Specific Gravity, Urine 1.025 (1.003-1.022); Urobilinogen, Urine NORM (Normal)
[2023-04-22 05:08] LABS: Albumin, Blood 3.3 g/dL (3.4-5.0); Albumin/Globulin Ratio 0.7 (0.8-1.8); Bilirubin, Total 2.5 mg/dL (0.1-1.0); Bun/Creatinine Ratio 19.5 (12.0-20.0); Calcium, Blood 9.1 mg/dL (8.5-10.1); Creatinine, Blood 1.23 mg/dL (0.40-1.00); Globulin, Blood 4.7 g/dL (2.2-4.0); Potassium, Blood 4.8 mmol/L (3.5-5.5)
[2023-04-22 05:35] LABS: Color, Urine Yellow (P-Yellow)
[2023-04-22 05:36] LABS: Appearance, Urine Cloudy (Clear)
[2023-04-22 05:41] LABS: Bacteria Mod /hpf; Red Blood Cells, Urine 0-2 /hpf (0-2); Squamous Epithelial Cells Many /hpf (Few); White Blood Cells, Urine 0-2 /hpf (0-5)
--- NOTE | 2023-04-22 06:15 | NUR ---
END OF SHIFT SUMMARY PRECEDEX STARTED FOR ANXIETY R/T BIPAP MASK, SHE WAS YELLING OUT AND TRYING TO GET OUT OF BED TO GET WATER EVEN AFTER REDIRECTING, EDUCATION, AND PROVIDING ORAL CARE. PRECEDEX INFUSING AT 0.2MCG/KG/HR; SHE IS NOW RESTING COMFORTABLY IN BED. CONT TO BE ON BIPAP WITH SETTINGS 14/7 5L BLEED IN; RR CONT TO BE 25-35. AFEBRILE. AFIB NOTED WITH RATE 120-150'S; AMIODERONE INFUSING AT 0.5MG/HR. SBP 115-150'S. ONE EPISODE OF NAUSEA RELIEVED WITH ZOFRAN. HARRY HAS VERY MINIMAL OUTPUT WITH A TOTAL OF 10ML; CALL MADE TO HOSPITALIST REGARDING URINE OUTPUT, DR LORD TO LOOK OVER CHART. WILL REPORT TO AM RN WHEN AVAILABLE. NEW ORDERS TO CONSULT NEPHROLOGY; DR LOPEZ ON UNIT AND INFORMED OF CONSULT. HE PROVIDED NEW ORDERS.
--- NOTE | 2023-04-22 07:30 | NUR ---
ASSUMED CARE BEDSIDE REPORT FROM JOSHUA PEREZ AT 0700. PT RESTING IN BED. WAKES c VERBAL STIMULI. BIPAP 14/7/5L. LUNGS COARSE c WHEEZES THROUGHOUT. OCCASIONAL COUGH. ROUGH VOICE. TACHYPENIC, OCCASIONAL LABORED RESP. AFIB ON MONITOR, RATE 100-130'S. AMIO GTT INFUSING. BP STABLE. PT DIAPHORETIC, CLAMMY, EXT COOL. A&OX 3. FOLLOWS SIMPLE COMMANDS. OCCASIONALLY DIFFICULT TO UNDERSTAND D/T VOICE. CAN BE AGITATED c CARE AND IMPATIENT. HARRY PATENT, ANURIC. WILL CONTINUE TO MONITOR.
--- NOTE | 2023-04-22 11:38 | NUR ---
Spiritual care visit conducted. Patient is lying in bed and resting. Her dtr, Gely, is bedside. Gely tells me about the medical problems and her concerns. She explains about her demetria and the strong demetria of her mother. I wake patient up and provide prayer for her, for which she voices much gratitude. RT is working to manage pt's breathing and so I allow room for the other discples to offer care. I will continue to remain available to patient and family.
--- NOTE | 2023-04-22 17:35 | NUR ---
SHIFT SUMMARY PT ON 6L VIA HFNC. LUNGS COARSE THROUGHOUT c WHEEZE. OCCASIONAL COUGH. PT STATES SHE IS FEELING BETTER. RR 20'S. NO LONGER LABORED. SPEAKING IN FULL SENTENCES. PRECEDEX TITRATED OFF. PT A&O X 4. COOPERATIVE c CARE. STATUS CHANGED TO PCU. AMIO CONTINUES. PLAN FOR AMIO GTT FOR 18 HOURS, THEN OFF. INCREASED METOPROLOL TO 50 MG PO. CONTINUES IN AFIB, RATE 90-110'S. BP STABLE. OLIURIC THIS SHIFT, 185 ML OUT. 24 HOURS URINE COLLECTION IN PROGRESS. UPDATED DR RENDON, FLUID RESTRICTION AND DIURETICS D/C'D. DAUGHTER AT BEDSIDE, UPDATED ON CARE PLAN. WILL CONTINUE TO MONITOR UNTIL REPORT TO ONCOMING NURSE.
--- NOTE | 2023-04-22 22:00 | NUR ---
ASSUMED CARE AT 1900 PT RESTING IN BED WATCHING TV AT SHIFT CHANGE. SHE IS A/O X4 AND ABLE TO MAKE HER NEEDS KNOWN; VERY PLEASANT AND COOPERATIVE WITH CARE; MILD WEAKNESS NOTED R/T DYSPNEA WITH EXERTION. SPO2 >92% ON 2L HIGH FLOW; PLAN TO WEAR BIPAP WHILE SLEEPING TONIGHT. AFIB NOTED WITH HR 80-120'S; AMIODERONE INFUSING AT 0.5MG/HR AND STOPPED AT 2130. BP STABLE. TOLERATING PO INTAKE WELL. HARRY IN PLACE WITH SMALL AMOUNT OF OUTPUT. CONT TO BE DIAPHORETIC BUT COLOR HAS IMPROVED. SEE SHIFT ASSESSMENT FOR FULL ASSESSMENT.
[2023-04-23] VITALS (13 sets, daily range): BP systolic 113–141; BP diastolic 71–116
--- NOTE | 2023-04-23 00:34 | NUR ---
PT TRANSFERED TO PCU FROM ICU. PT DENIES PAIN, SOB, AND ANY CURRENT NEEDS. PT ON 2L O2 VIA NC SP02 >98%. PT A/OX4. VSS. ANSWERING QUESTIONS APPROPRIATELY
--- NOTE | 2023-04-23 01:31 | NUR ---
TRANSFER TO U REPORT GIVEN TO JANIS. PT TRANSFERED TO [facility] 11 AT 0020.
[2023-04-23 04:33] LABS: Hematocrit 42.8 % (33.0-51.0); Hemoglobin 14.4 g/dL (11.5-16.0)
[2023-04-23 04:52] LABS: Anion Gap 8 mmol/L (6-16); Blood Urea Nitrogen 59 mg/dL (8-24); Bun/Creatinine Ratio 22.7 (12.0-20.0); CO2, Blood 27 mmol/L (21-32); Calcium, Blood 8.4 mg/dL (8.5-10.1); Chloride, Blood 98 mmol/L (98-108); Glomerular Filtration Rate 20 (60-); Glucose, Blood 164 mg/dL (70-99); Magnesium, Blood 2.2 mg/dL (1.6-2.4); Phosphorus, Blood 6.1 mg/dL (2.5-4.9); Potassium, Blood 4.2 mmol/L (3.5-5.5); Sodium, Blood 133 mmol/L (136-145)
--- NOTE | 2023-04-23 06:18 | NUR ---
END OF SHIFT NOTE: PT TRANSFERED TO PCU FROM ICU. SHE IS A/OX4, USES CALL LIGHT APPRORIATELY TO MAKE NEEDS KNOWN. SHE IS IN AFIB WITH MEDS UPDATED TO HOME DOSAGES. SHE IS ON 2L NC TO MAINTAIN SPO2 >90%. HER CATHETER BAG LEAKED SO HER 24 HOUR URINE COLLECTION HAD TO RESTART AT 0600. PT HAS BEEN DIAPHORETIC, STATES IT IS HER BASELINE. NO FEVERS DURING THIS SHIFT. PT DRINKS BEER DAILY WITH LAST INTAKE 04/22. PT RESTING COMFORTABLY WITH CALL LIGHT IN REACH.
--- NOTE | 2023-04-23 09:33 | NUR ---
AM NOTE: PATIENT ALERT AND ORIENTED X4. MOVING ALL EXTREMITIES EQUALLY. NUMBNESS/TINGLING TO HANDS AND FEET. FEET AND HANDS BOTH COLD AND SLIGHTLY PURPLE. WARM BLANKETS PROVIDED. OVERALL WEAK. PATIENT AGREEABLE. TO GET UP TO CHAIR PRIOR TO LUNCH. PLAN FOR BED BATH TODAY. PERRLA. DENIES HEADACHE/VISION CHANGES. TELE SHOWING AFIB WITH HR 90-110'S. SBP 120-140'S THIS AM. DR. RENDON BY AND ORDERS FOR MEDICAL STATUS NO TELE, WELL INCREASE METOPROLOL XL TO [address] RENDON AT BEDSIDE TO CHECK VERBAL ORDERS PLACED IN [facility] BY THIS RN. DENIES CHEST PAIN/PRESSURE/PALPITATIONS. PPP. IV SALINE LOCKED. MINIMAL EDEMA NOTED TO BLE. ON 2L NASAL CANNULA WITH BIPAP ON STANDBY AT BEDSIDE. SATING ABOVE 95%. EVEN AND UNLABORED RESPIRATIONS. PATIENT HAVING PRODUCTIVE COUGH THIS AM WITH MODERATE AMOUNT OF THICK, WHITE/SOMMERS/YELLOW SPUTUM. SPUTUM SAMPLE SENT TO LAB. EXPIRATORY WHEEZE HEARD THROUGHOUT. RESPIRATORY IN TO PROVIDE BREATHING TREATMENT. BOWEL TONES PRESENT. EATING WNL. HARRY CATH IN PLACE DRAINING CLEAR/YELLOW URINE. 24 HOUR URINE COLLECTION IN PROGRESS, URINE ON ICE. DENIES ISSUES WITH BOWEL MOVEMENT. ATTENDS IN PLACE. DENIES ABDOMINAL PAIN/NAUSEA. SKIN OVERALL FLUSHED AND SWEATY. PATIENT STATES IT IS WNL FOR HER TO BE SWEATY. SCATTTERED BRUISING FROM PREVIOUS FALLS AT HOME. SPOKE WITH DAUGHTER ANMOL ON PHONE THIS AM WITH PATIENT PERMISSION AND PROVIDED UPDATE. CALL LIGHT IN REACH. PATIENT COMPLETED BREAKFAST AND SITTING IN BED WATCHING TV, DENIES NEEDS AT THIS TIME.
[2023-04-23 10:34] LABS: Acinetobacter baumannii DNA Not Detected copy/mL (NOT DETECT); Adenovirus DNA Not Detected (NOT DETECT); Chlamydia pneumonia Not Detected (NOT DETECT); Enterobacter cloacae DNA Not Detected copy/mL (NOT DETECT); Escherichia coli DNA Not Detected copy/mL (NOT DETECT); Haemophilus influenzae DNA Not Detected copy/mL (NOT DETECT); Human Coronavirus RNA Not Detected (NOT DETECT); Human Metapneumovirus RNA Not Detected (NOT DETECT); Influenza virus A RNA Not Detected (NOT DETECT); Influenza virus B RNA Not Detected (NOT DETECT); Klebsiella aerogenes DNA Not Detected copy/mL (NOT DETECT); Klebsiella oxytoca DNA Not Detected copy/mL (NOT DETECT); Klebsiella pneumoniae DNA Not Detected copy/mL (NOT DETECT); Legionella pneumophila Not Detected (NOT DETECT); Moraxella catarrhalis DNA Not Detected copy/mL (NOT DETECT); Mycoplasma pneumoniae Not Detected (NOT DETECT); Parainfluenza virus RNA Not Detected (NOT DETECT); Proteus sp DNA Not Detected copy/mL (NOT DETECT); Pseudomonas aeruginosa DNA Not Detected copy/mL (NOT DETECT); Respiratory syncytial Vir RNA Not Detected (NOT DETECT); Rhinovirus+Enterovirus RNA Not Detected (NOT DETECT); Serratia marcescens DNA Not Detected copy/mL (NOT DETECT); Staphylococcus aureus DNA Not Detected copy/mL (NOT DETECT); Streptococcus agalactiae DNA Not Detected copy/mL (NOT DETECT); Streptococcus pneumoniae DNA Not Detected copy/mL (NOT DETECT); Streptococcus pyogenes DNA Not Detected copy/mL (NOT DETECT)
--- NOTE | 2023-04-23 17:20 | NUR ---
SHIFT SUMMARY: NO ACUTE CHANGES, SEE PREVIOUS NOTE. PATIENT REMAINS ALERT AND ORIENTED. UP IN RECLINER THIS AFTERNOON AND CURRENTLY EATING DINNER. DAUGHTER ANMOL AT BEDSIDE. PATIENT ON 1L NASAL CANNULA SATING MID 90'S. MEDICAL STATUS NO TELE. HR 90-110'S. BP STABLE. DENIES PAINS. HARRY CATH REMAINS IN PLACE DRAINING CLEAR/YELLOW URINE. 24 HOUR URINE IN PROGRESS. CALL LIGHT IN REACH. DENIES NEEDS.
[2023-04-24] VITALS (8 sets, daily range): BP systolic 114–145; BP diastolic 79–112
[2023-04-24 03:44] LABS: Hematocrit 39.8 % (33.0-51.0); Hemoglobin 13.8 g/dL (11.5-16.0)
--- NOTE | 2023-04-24 03:54 | NUR ---
SHIFT SUMMARY PT ALERT AND ORIENTED X 4, COOPERATIVE WITH CARE AND ABLE TO MAKE NEEDS KNOWN. RASHID. AT BEGINNING OF SHIFT CIWA WAS 5, LATER ADVANCED TO , PT MEDICATED PER EMAR. SHE IS ON 1L VIA NC AND MAINTAINING 02 SATURATION ABOVE 92%. AT BEGINNING OF SHIFT RESPIRATORY THERAPY MET WITH PT AND SAID THEY WERE GOING TO TRIAL HER WITHOUT BIPAP TONIGHT. LATER IN SHIFT PTS WHEEZE BECAME SLIGHTLY MORE AUDIBLE, ENCOURAGED PT TO WEAR CPAP, BUT SHE SAID SHE DIDN'T WANT TO BC IT MAKES HER CLAUSTROPHOBIC. SHE CONTINUES TO MAINTAIN 02 SATURATION ABOVE 92% ON 1L NC. PT HAS AICP TO L UPPER CHEST. HR 90'S-100S AFIB. SHE HAS HARRY CATHETER IN DRAINING YELLOW URINE WITH GRAVITY. COLLECTING ALL URINE FOR 24 HOUR URINE AND KEEPING ON ICE. PT COMPLAINED THAT BOTH OF HER FEET ARE COLD AND ACHY. HER FEET ARE DISCOLORED AND COOL TO THE TOUCH. BILATERAL PEDAL PULSES PALPABLE WITH DOPPLER. PT CURRENTLY SLEEPING IN BED WITH LIGHTS OFF. SYMMETRICAL RISE AND FALL OF CHEST WITH RESPIRATORY RATE OF 16, AND 02 SATURATION OF 98. CALL LIGHT IS WITHIN REACH.
[2023-04-24 04:03] LABS: Albumin, Blood 2.8 g/dL (3.4-5.0); Anion Gap 8 mmol/L (6-16); Blood Urea Nitrogen 77 mg/dL (8-24); Bun/Creatinine Ratio 31.7 (12.0-20.0); CO2, Blood 29 mmol/L (21-32); Calcium, Blood 8.3 mg/dL (8.5-10.1); Chloride, Blood 97 mmol/L (98-108); Creatinine, Blood 2.43 mg/dL (0.40-1.00); Glomerular Filtration Rate 22 (60-); Glucose, Blood 182 mg/dL (70-99); Magnesium, Blood 2.2 mg/dL (1.6-2.4); Phosphorus, Blood 4.5 mg/dL (2.5-4.9); Potassium, Blood 3.3 mmol/L (3.5-5.5); Sodium, Blood 134 mmol/L (136-145)
--- NOTE | 2023-04-24 10:20 | NUR ---
AM NOTE: PATIENT ALERT AND ORIENTED X3-4. FORGETFUL AT TIMES. PERRLA. DENIES HEADACHE/VISION CHANGES. MOVING ALL EXTREMITIES EQUALLY. OVERALL WEAK. SBA TO BSC AND RECLINER. NUMBNESS/TINGLING TO BILATERAL FEET. TELE SHOWING AFIB WITH HR 90-100'S. SBP 120-140'S. DENIES CHEST PAIN/PRESSURE/PALPITATIONS. MINIMAL EDEMA NOTED TO BLE. HANDS AND FEET COLD WITH PURPLE TINGE. PPP. IV SALINE LOCKED. LUNGS COARSE WITH EXPIRATORY WHEEZE HEARD THROUGHOUT. PATIENT COUGHING AND PRODUCING THICK WHITE/SOMMERS/YELLOW SPUTUM. WEARING 3L NASAL CANNULA SATING ABOVE 95%. RESPIRATORY IN FOR BREATHING TREATMENTS. EVEN AND UNLABORED RESPIRTAIONS. BIPAP ON STANDBY AT BEDSIDE. BOWEL TONES PRESENT. UP TO BSC WHEN NEEDED. HARRY CATH IN PLACE DRAINING CLEAR/YELLOW URINE. DENIES ABDOMINAL PAIN AT THIS TIME. EATING WNL. TAKING PILLS WHOLE WITH WATER. SKIN OVERALL PALE/COOL WITH REDNESS/TARA TO JAZMINE TO FACE. SCATTERED SCABS AND BRUISING, PATIENT STATES FROM PREVIOUS FALLS AT HOME. CIWA INITIALLY SCORED 0 THIS AM PATIENT WAS FEELING OVERALL WELL, JUST SLEEPY. POST BREAKFAST PATIENT AGGITATIED, ANXIOUS, SWEATY AND HAVING A MILD HEADACHE. CIWA SCORED 9 AT THAT TIME AND PATIENT MEDICATED PER EMAR. CALL LIGHT IN REACH. PATIENT RESTING IN BED AT THIS TIME WITH EYES CLOSED. CALL PLACED TO ANMOL - DAUGHTER TO PROVIDE UPDATE. THIS RN AT BEDSIDE FOR PROVIDER ROUNDING. ORDERS FOR A TOTAL OF 40 MEQ KCL PO TO BE GIVEN THIS AM. ORDERS IN PLACE AND KCL GIVEN.
--- NOTE | 2023-04-24 14:07 | NUR ---
AFTERNOON VITALS STABLE. PATIENT UP TO SHOWER WITH ONE PERSON ASSIST, THEN TO RECLINER FOR LUNCH. VISITORS AT BEDSIDE DURING LUNCH. PATIENT COMPLAINS OF MILD NAUSEA. IV ZOFRAN GIVEN AND NAUSEA RELIEVED. PATIENT TIRED AND REQUESTING TO GET BACK TO BED, PATIENT FELL ASLEEP QUICKLY ONCE BACK TO BED. DAUGHTER ANMOL TO BEDSIDE, THIS RN PROVIDED UPDATE. PATIENT SLEEPING AT THIS TIME WITH BED ALARM IN PLACE.
--- NOTE | 2023-04-24 15:53 | NUR ---
PATIENT SEEMING MORE GROGGY/FORGETFUL THIS AFTERNOON, WAKES TO VOICE. DR. PISANO BY FOR ROUNDING. THIS RN DISCUSSED CONCERNS WITH BEING MORE GROGGY POST ATIVAN ADMINISTRATION LATE MORNING AND PATIENT SOUNDING MORE COARSE IN UPPER AIRWAY. RESP IN TO GIVE BREATHING TREATMENT AND BIPAP PLACED. PATIENT TOLERATING AT THIS TIME.
--- NOTE | 2023-04-24 17:53 | NUR ---
SHIFT SUMMARY: PATIENT HAS BEEN WEARING BIPAP SINCE 1529. WAKES TO VOICE AND TOUCH. ABLE TO TELL ME WHO SHE IS, HER BIRTHDATE AND THAT SHE IS IN [facility]" THIS EVENING. FALLS BACK ASLEEP QUICKLY. REMAINS AFIB WITH HR 80-90'S. SATING MID 90'S ON BIPAP. LUNGS REMAINS COARSE, WHEEZING IMPROVED POST BREATHING TREATMENT AROUND 1529. HARRY CATH REMAINS IN PLACE DRAINING CLEAR/YELLOW URINE. DINNER TRAY HELD AT THIS TIME PATIENT IS TO SLEEPY TO SWALLOW SAFELY AT THIS TIME. DAUGHTER ANMOL CALLED BY THIS RN, MESSAGE LEFT TO UPDATE. CALL LIGHT IN REACH. BED ALARM IN PLACE.
--- NOTE | 2023-04-24 21:00 | NUR ---
ASSUMPTION OF CARE AFTER RECEIVING REPORT FROM DARWIN RN, THIS RN ASSUMED CARE AT APPROX 1915. PATIENT ALERT AND ORIENTED X3-4. CAN BE FORGETFUL. SOFT, MUMBLED SPEECH. CAN BE DIFFICULT TO UNDERSTAND AT TIMES, BUT SHE IS ABLE TO COMMUNICATE NEEDS EFFECTIVELY. USES CALL LIGHT APPROPRIATELY. CIWA OBTAINED, 4. DIAPHORETIC/CLAMMY, REPORTING A SLIGHT HEADACHE. LIBRIUM ADMINISTERED PER EMAR. TELEMETRY SHOWING AFIB 90's. BP ELEVATED AT TIMES, 120's OVER 100's. EVENING DOSE OF METOPROLOL ADMINISTERED PER EMAR, WILL CONTINUE TO MONITOR. IS CURRENTLY ON 3L VIA NASAL CANNULA, SATS >90%. REMOVED BIPAP MASK AT PATIENT REQUEST, SETTINGS 29/10. PLAN TO PLACE BACK ON BIPAP ONCE READY TO GO TO SLEEP, PATIENT COOPERATIVE WITH PLAN. LOOSE, PRODUCTIVE COUGH. RT AT BEDSIDE TO ADMINISTER BREATHING TREATMENT. SMALL MEAL PROVIDED. IV ROCEPHIN INFUSING PER EMAR. CALL LIGHT IN REACH.
[2023-04-25 02:37] VITALS: BP 138/93
[2023-04-25 04:05] LABS: Hematocrit 39.2 % (33.0-51.0); Hemoglobin 13.5 g/dL (11.5-16.0)
[2023-04-25 04:25] LABS: Albumin, Blood 2.7 g/dL (3.4-5.0); Anion Gap 7 mmol/L (6-16); Blood Urea Nitrogen 67 mg/dL (8-24); Bun/Creatinine Ratio 35.4 (12.0-20.0); CO2, Blood 32 mmol/L (21-32); Calcium, Blood 8.6 mg/dL (8.5-10.1); Chloride, Blood 95 mmol/L (98-108); Creatinine, Blood 1.89 mg/dL (0.40-1.00); Glomerular Filtration Rate 29 (60-); Glucose, Blood 336 mg/dL (70-99); Magnesium, Blood 2.3 mg/dL (1.6-2.4); Phosphorus, Blood 3.1 mg/dL (2.5-4.9); Potassium, Blood 3.4 mmol/L (3.5-5.5); Sodium, Blood 134 mmol/L (136-145)
--- NOTE | 2023-04-25 05:14 | NUR ---
SHIFT SUMMARY NO ACUTE CHANGES SINCE PREVIOUS NOTE. PATIENT SLEPT INTERMITTENTLY THROUGHOUT SHIFT. SOFT, MUMBLED SPEECH NOTED THROUGHOUT. CIWA's 2-4 THROUGHOUT, MEDICATED X1 WITH LIBRIUM. ABLE TO COMMUNICATE NEEDS EFFECTIVELY. TELEMETRY SHOWING AFIB 90's. BP STABLE. ALTERNATED BETWEEN 3L VIA NASAL CANNULA AND BIPAP 14/7 WITH 3L BLEED IN THROUGHOUT THE NIGHT. SATS REMAIN >90%. CONTINUED OCCASSIONAL HACKING, CONGESTED COUGH NOTED. UP TO BEDSIDE COMMODE FOR BM WITH 2P ASSIST FWW, SMALL BROWN SMEAR. AHRRY CATHETER IN PATENT, DRAINING YELLOW URINE TO GRAVITY. REPOSITIONED IN BED TOLERATED. CALL LIGHT IN REACH. WILL REPORT TO ONCOMING RN.
[2023-04-25 07:32] VITALS: BP 139/104
--- NOTE | 2023-04-25 08:04 | NUR ---
AM NOTE PT ALERT, ORIENTED X4; CALM AND COOERATIVE WITH CARE. CIWA <8. PT RESTING IN BED, UP WITH 1-2 PERSON ASSIST, PT REPOSITIONS SELF IN BED IND. PT DENIES PAIN, CHEST PAIN/PRESSURE, SOB, NAUSEA, DIZZINESS AND NUMB/TINGLING. TELE AFIB 90, IRREGULAR NOTED, BP ELEVATED. SPO2 >95% ON 3L O2 VIA NC THIS AM, TITRATED DOWN TO RA, LS DIM WITH INS/EXP WHEEZES. ABD SOFT, NONTENDER, BT + T/O. EDEMA NOTED TO BLE. OTHER VSS. WILL CONTINUE TO MONITOR.
[2023-04-25 16:12] VITALS: BP 135/97
--- NOTE | 2023-04-25 16:31 | NUR ---
Shift Summary Pt forgetful t/o shift, calling out for help instead of use call light this am, oriented pt to call and pt has been useing call light this evening. Pt had bm during shift. Up in recliner this evening. Other vss. No other acute changes noted. Will continue to monitor.
[2023-04-25 19:22] VITALS: BP 134/91
--- NOTE | 2023-04-25 20:52 | NUR ---
ASSUMPTION OF CARE AFTER RECEIVING REPORT FROM TITI PEREZ, THIS RN ASSUMED CARE AT APPROX 1915. DURING INITIAL ENCOUNTER, PATIENT LETHARGIC, EASILY AROUSABLE TO VERBAL STIMULI. REPORTS FEELING TIRED THIS EVENING, REQUESTING TO GO TO SLEEP. IS ALERT AND ORIENTED X4. CAN BE FORGETFUL, BED ALARM IN PLACE FOR PATIENT SAFETY. TELEMETRY SHOWING AFIB 90's. BP STABLE. DENIES CHEST PAIN, PRESSURE. IS MEDICAL STATUS WITH TELEMETRY. IS ON ROOM AIR, SATS >90%. OCCASSIONAL PRODUCTIVE COUGH NOTED. AFTER ADMINISTERING EVENING MEDICATIONS PER EMAR, PATIENT PLACED ON BIPAP / FOR SLEEP. FOLLOWING EDUCATION REGARDING USE OF BIPAP, PATIENT AGREEABLE WITH WEARING MASK AT THIS TIME, WILL KEEP IN PLACE TOLERATED BY PATIENT. HARRY CATHETER IN PLACE, BLADDER TRAINING INITIATED. EDUCATION PROVIDED. IS A 1-2 PERSON ASSIST IN ROOM TO BEDSIDE COMMODE, CHAIR. CALL LIGHT IN REACH.
[2023-04-26 03:36] VITALS: BP 147/105
--- NOTE | 2023-04-26 04:06 | NUR ---
TRANSFER PATIENT MEDICAL STATUS WITH TELEMETRY. PATIENT TO BE TRANSFERRED TO MEDICAL FLOOR. REPORT GIVEN TO ACCEPTING RN. PATIENT TRANSFERRED OFF UNIT VIA HOSPITAL BED AT APPROX 0405. PERSONAL BELONGINGS WITH PATIENT.
--- NOTE | 2023-04-26 04:30 | NUR ---
PATIENT CAME IN FROM ICU WITH OXYGEN ON AT 2 LPM/NASAL CANNULA. OFFERED HER BIPAP BUT SHE REFUSED PUTTING IT ON. WITH HARRY CATHETER ON BLADDER TRAINING. PIV ON RIGHT AC. NEED ATTENDED. CALL LIGHT WITHIN PATIENT'S REACH. WILL CONTINUE TO MONITOR.
[2023-04-26 07:02] LABS: BASOPHILS ABSOLUTE AUTO 0.02 K/mm3 (0.00-0.23); BASOPHILS PERCENT AUTO 0 % (0-2); EOSINOPHILS ABSOLUTE AUTO 0.01 K/mm3 (0.00-0.68); EOSINOPHILS PERCENT AUTO 0 % (0-6); Hematocrit 41.8 % (33.0-51.0); Hemoglobin 13.9 g/dL (11.5-16.0); IMMATURE GRAN ABSOLUTE AUTO 0.13 K/mm3 (0.00-0.10); IMMATURE GRAN PERCENT AUTO 1 % (0-1); LYMPHOCYTES ABSOLUTE AUTO 0.56 K/mm3 (0.84-5.20); LYMPHOCYTES PERCENT AUTO 4 % (21-46); MONOCYTES PERCENT AUTO 10 % (4-13); Mean Corpuscular HGB 33.9 pg (26.0-34.0); Mean Corpuscular HGB Conc 33.3 g/dL (31.5-36.5); Mean Corpuscular Volume 102 fL (80-100); Mean Platelet Volume 10.2 fL (9.1-12.4); NEUTROPHILS ABSOLUTE AUTO 12.56 K/mm3 (1.96-9.15); NEUTROPHILS PERCENT AUTO 86 % (41-73); NRBC ABSOLUTE 0.03 K/mm3 (0.00-0.02); NRBC Auto 0.2 /100 WBC (0.0-0.2); Platelet Count 203 K/mm3 (150-400); RDW Coefficient Variation 12.6 % (11.7-14.2); RDW Standard Deviation 47.4 fL (35.1-46.3); White Blood Cell Count 14.68 K/mm3 (4.00-11.30)
[2023-04-26 07:21] LABS: Magnesium, Blood 2.2 mg/dL (1.6-2.4)
[2023-04-26 07:29] LABS: Albumin, Blood 2.8 g/dL (3.4-5.0); Albumin/Globulin Ratio 0.8 (0.8-1.8); Bilirubin, Total 0.9 mg/dL (0.1-1.0); Bun/Creatinine Ratio 40.8 (12.0-20.0); Creatinine, Blood 1.3 mg/dL (0.40-1.00); Globulin, Blood 3.5 g/dL (2.2-4.0); Phosphorus, Blood 2.8 mg/dL (2.5-4.9); Potassium, Blood 4.1 mmol/L (3.5-5.5); Total Protein, Blood 6.3 g/dL (6.4-8.2)
[2023-04-26 07:50] VITALS: BP 153/113
[2023-04-26 10:48] VITALS: BP 124/90
[2023-04-26 15:19] VITALS: BP 123/81
--- NOTE | 2023-04-26 18:14 | NUR ---
SHIFT SUMMARY HARRY REMOVED THIS MORNING AND HAS BEEN VOIDING SINCE. NAPPING THIS AFTERNOON AND O2 REMOVED AND PULSE OX CHECKED SEVERAL TIMES WITH RANGE BETWEEN 94-96%. FACE GETS VERY RED WHENEVER MOVING FROM LAYING TO SITTING UP POSITION BUT RESOLVES TO A LIGHT FLUSHED COLOR. SLEEPY THIS AFTERNOON, STATED SHE DIDN'T SLEEP WELL LAST NIGHT.
[2023-04-26 19:54] VITALS: BP 120/85
[2023-04-27 03:11] VITALS: BP 133/104
[2023-04-27 05:10] LABS: Hematocrit 41.2 % (33.0-51.0)
--- NOTE | 2023-04-27 05:41 | NUR ---
SHIFT SUMMARY NOC PT A/O X 3. PLEASANT AND COOPERATIVE WITH CARE. PT EVENING CBG 263 AND SCHEDULED 10 UNITS OF LONG ACTING INSULIN GIVEN. PT HAS BEEN ON RA ENTIRE SHIFT SPO2 >92%. PT DID NOT WANT TO WEAR CPAP FOR SLEEP TONIGHT. PT SBA TO BATHROOM MULTIPLE TIMES. DISCHARGE PENDING REFERRAL FOR [facility] IN NEXT COUPLE DAYS. PT IS CURRENTLY RESTING WITH BED IN LOWEST POSITION, AND CALL LIGHT WITHIN REACH.
[2023-04-27 06:17] LABS: Albumin, Blood 2.7 g/dL (3.4-5.0); Albumin/Globulin Ratio 0.8 (0.8-1.8); Bilirubin, Total 0.8 mg/dL (0.1-1.0); Bun/Creatinine Ratio 50.4 (12.0-20.0); Calcium, Blood 9.2 mg/dL (8.5-10.1); Creatinine, Blood 0.95 mg/dL (0.40-1.00); Globulin, Blood 3.2 g/dL (2.2-4.0); Phosphorus, Blood 2.8 mg/dL (2.5-4.9); Potassium, Blood 3.8 mmol/L (3.5-5.5); Total Protein, Blood 5.9 g/dL (6.4-8.2)
[2023-04-27 07:23] VITALS: BP 121/80
[2023-04-27 14:48] VITALS: BP 103/76
[2023-04-27 14:51] VITALS: BP 103/76
--- NOTE | 2023-04-27 18:41 | NUR ---
SHIFT SUMMARY PATIENT ALERT AND INTERACTIVE. OOB X2. PATIENT AMBULATED TO SHOWER. PATIENT APPEALED DISCHARGE PLANNED FOR TODAY. PATIENT STATED SHE NEEDED ANOTHER NIGHT IN THE THE HOSPITAL. DAUGHTER VERBALIZING CONCERNS WITH DISCHARGE. EDUCATED DAUGHTER RELATED TO PATIENT REFUSING REHAB AND NOT WILLING TO WEAR BIPAP. PATIENT NOW WILLING TO GO TO REHAB. PATIENT MAKING AN ATTEMPT TO TOLERATE BIPAP AFTER TALKING WITH DAUGHTER. PATIENT MORE AWAKE AFTER WEARING BIPAP AND ABLE TO INTERACT IN CONVERSATION. NOTIFIED DR ROBLES AND CASE MANAGEMENT OF PATIENT APPEALING DISCHARGE.
[2023-04-27 19:19] VITALS: BP 106/81
[2023-04-28 02:09] VITALS: BP 128/89
--- NOTE | 2023-04-28 04:35 | NUR ---
SHIFT SUMMARY PATIENT HAD NO ACUTE CHANGES. AXOX 3 AND ONE ASSIST W/FWW TO BR. ON ROOM AIR. DENIES CHEST PAIN, SOB, AND N/V. USES BIPAP AT NIGHT. RT IN FOR BREATHING TX. VSS/AFEBRILE. CBG 274. COOPERATIVE WITH CARE. CALL LIGHT IN REACH. BED IN LOWEST POSITION. WILL CONTINUE TO MONITOR UNTIL DAY SHIFT NURSE ASSUMES CARE.
[2023-04-28 04:49] LABS: Hematocrit 42.5 % (33.0-51.0); Hemoglobin 14.4 g/dL (11.5-16.0)
[2023-04-28 04:59] LABS: Albumin, Blood 2.5 g/dL (3.4-5.0); Anion Gap 5 mmol/L (6-16); Blood Urea Nitrogen 41 mg/dL (8-24); Bun/Creatinine Ratio 45.8 (12.0-20.0); CO2, Blood 35 mmol/L (21-32); Calcium, Blood 8.6 mg/dL (8.5-10.1); Chloride, Blood 97 mmol/L (98-108); Glomerular Filtration Rate 71 (60-); Glucose, Blood 118 mg/dL (70-99); Magnesium, Blood 1.7 mg/dL (1.6-2.4); Phosphorus, Blood 3.7 mg/dL (2.5-4.9); Potassium, Blood 3.8 mmol/L (3.5-5.5); Sodium, Blood 137 mmol/L (136-145)
[2023-04-28 07:09] VITALS: BP 116/104
[2023-04-28 07:18] VITALS: BP 151/99
[2023-04-28] MEDS ORDERED: NICO21TP TOP (11:29)
[2023-04-28] MEDS ORDERED: BASAGLAR K100 UNIT/1 SC (11:29)
[2023-04-28] MEDS ORDERED: Prednisone10 MG PO (11:30)
[2023-04-28 12:17] LABS: SARS-Cov-2 (COVID-19) PCR, MMC NEGATIVE (NEGATIVE)
--- NOTE | 2023-04-28 15:24 | NUR ---
DISCHARGE: PT D/C @1520 VIA WHEELCHAIR TO [facility]. REPORT CALLED TO FACILITY @8230. ALL BELONGINGS SENT WITH PT. PACKET SENT WITH TRANSPORT.
== END 2023-04-28 15:23 | DRG 871 ==
LOC: ER 19:19 → ICUE 22:35 → MEDS 22:35 → ERHOLD 22:35 → ICUE 23:21 → PCU 04-23 00:20 → MEDS 04-26 04:15 → ENPENDDIS 04-27 11:34 → MEDS 04-28 15:23
PROVIDERS: Emergency Medicine; Internal Medicine; Internal Medicine Nephrology; ADMIT Internal Medicine
PROC: 3E03329 Introduction of Other Anti-infective into Peripheral Vein, Percutaneous Approach (ICD-10-PCS; principal; 2023-04-21)
PROC: 5A09357 Assistance with Respiratory Ventilation, Less than 24 Consecutive Hours, Continuous Positive Airway Pressure (ICD-10-PCS; 2023-04-21)
DX: A41.9 Sepsis, unspecified organism (principal); G92.8 Other toxic encephalopathy; I50.23 Acute on chronic systolic (congestive) heart failure; J18.9 Pneumonia, unspecified organism; J96.01 Acute respiratory failure with hypoxia; N17.0 Acute kidney failure with tubular necrosis; J44.0 Chronic obstructive pulmonary disease with (acute) lower respiratory infection; J44.1 Chronic obstructive pulmonary disease with (acute) exacerbation; I13.0 Hypertensive heart and chronic kidney disease with heart failure and stage 1 through stage 4 chronic kidney disease, or unspecified chronic kidney disease; I48.20 Chronic atrial fibrillation, unspecified; I24.89 Other forms of acute ischemic heart disease; E87.1 Hypo-osmolality and hyponatremia; I42.8 Other cardiomyopathies; E86.0 Dehydration; N18.2 Chronic kidney disease, stage 2 (mild); G47.30 Sleep apnea, unspecified; F17.210 Nicotine dependence, cigarettes, uncomplicated; F10.20 Alcohol dependence, uncomplicated; F41.9 Anxiety disorder, unspecified; R94.5 Abnormal results of liver function studies; F90.9 Attention-deficit hyperactivity disorder, unspecified type; E03.9 Hypothyroidism, unspecified; B19.20 Unspecified viral hepatitis C without hepatic coma; F31.9 Bipolar disorder, unspecified; D63.1 Anemia in chronic kidney disease; E88.09 Other disorders of plasma-protein metabolism, not elsewhere classified; E83.39 Other disorders of phosphorus metabolism; E87.6 Hypokalemia; E11.22 Type 2 diabetes mellitus with diabetic chronic kidney disease; Z11.52 Encounter for screening for COVID-19; Z88.0 Allergy status to penicillin; Z88.1 Allergy status to other antibiotic agents; Z99.89 Dependence on other enabling machines and devices; Z79.899 Other long term (current) drug therapy; Z79.890 Hormone replacement therapy; Z79.51 Long term (current) use of inhaled steroids; Z79.01 Long term (current) use of anticoagulants; Z79.2 Long term (current) use of antibiotics; Z87.19 Personal history of other diseases of the digestive system; Z90.89 Acquired absence of other organs; Z98.890 Other specified postprocedural states; Z90.710 Acquired absence of both cervix and uterus; Z95.810 Presence of automatic (implantable) cardiac defibrillator
CPT/HCPCS: 0241U; 36415; 51702; 71045; 76770; 80053; 80069; 81001; 82947; 83735; 83880; 84100; 84145; 84156; 84484; 85014; 85018; 85025; 87633; 93005; 93010; 94640; 94660; 94664; 94760; 94762; 96365; 96366; 96375; 97116; 97161; 97165; 97530; 97535; 99291-25; A9270; C8929; J0282; J0696; J1650; J1815; J1940; J2060; J2405; J2930; J7050; J7060; J7512; Q9957; U0002

== ENCOUNTER 2023-05-19 12:44 | Emergency (ER) | payer MEDICARE ==
[~2023-05-19] VITALS: Ht 165.1 cm; Wt 81.7 kg
[~2023-05-19 12:44] MED LIST changes: +BASAGLAR K100 UNIT/1 SC; +FLUTICASONE-SA1 EAC9 INH; +GABA300 PO; +METO50ER PO; +MULVITA PO
[2023-05-19 13:44] LABS: BASOPHILS ABSOLUTE AUTO 0.02 K/mm3 (0.00-0.23); BASOPHILS PERCENT AUTO 0 % (0-2); EOSINOPHILS ABSOLUTE AUTO 0.07 K/mm3 (0.00-0.68); EOSINOPHILS PERCENT AUTO 1 % (0-6); Hematocrit 44.8 % (33.0-51.0); Hemoglobin 15.2 g/dL (11.5-16.0); IMMATURE GRAN ABSOLUTE AUTO 0.03 K/mm3 (0.00-0.10); IMMATURE GRAN PERCENT AUTO 0 % (0-1); LYMPHOCYTES PERCENT AUTO 33 % (21-46); MONOCYTES ABSOLUTE AUTO 0.54 K/mm3 (0.16-1.47); MONOCYTES PERCENT AUTO 7 % (4-13); Mean Corpuscular HGB 33.6 pg (26.0-34.0); Mean Corpuscular HGB Conc 33.9 g/dL (31.5-36.5); Mean Corpuscular Volume 99 fL (80-100); Mean Platelet Volume 10.1 fL (9.1-12.4); NEUTROPHILS ABSOLUTE AUTO 4.29 K/mm3 (1.96-9.15); NEUTROPHILS PERCENT AUTO 58 % (41-73); Platelet Count 221 K/mm3 (150-400); RDW Coefficient Variation 12.3 % (11.7-14.2); RDW Standard Deviation 45.1 fL (35.1-46.3); Red Blood Cell Count 4.53 M/mm3 (3.80-5.20); White Blood Cell Count 7.35 K/mm3 (4.00-11.30)
[2023-05-19 14:07] LABS: Albumin, Blood 2.5 g/dL (3.4-5.0); Albumin/Globulin Ratio 0.6 (0.8-1.8); Calcium, Blood 7.7 mg/dL (8.5-10.1); Creatinine, Blood 1.71 mg/dL (0.40-1.00); Total Protein, Blood 6.5 g/dL (6.4-8.2)
[2023-05-19 14:27] LABS: Influenza A, PCR NEGATIVE (NEGATIVE); Influenza B, PCR NEGATIVE (NEGATIVE); SARS-Cov-2 (COVID-19) PCR, MMC NEGATIVE (NEGATIVE)
[2023-05-19 14:38] LABS: Resp Syncytial Virus, PCR POSITIVE (NEGATIVE)
[2023-05-19] MEDS ORDERED: NS 1,000 ML IV SCH (15:20)
[2023-05-19 16:00] VITALS: BP 89/74
== END 2023-05-19 16:21 | disposition home or self-care (01) ==
LOC: ER 12:44
PROVIDERS: Emergency Medicine; Physician Assistant
DX: R09.02 Hypoxemia (principal); B97.4 Respiratory syncytial virus as the cause of diseases classified elsewhere; I95.9 Hypotension, unspecified; F17.210 Nicotine dependence, cigarettes, uncomplicated; Z95.810 Presence of automatic (implantable) cardiac defibrillator; I13.0 Hypertensive heart and chronic kidney disease with heart failure and stage 1 through stage 4 chronic kidney disease, or unspecified chronic kidney disease; I50.9 Heart failure, unspecified; N18.9 Chronic kidney disease, unspecified; E03.9 Hypothyroidism, unspecified; F90.9 Attention-deficit hyperactivity disorder, unspecified type; F31.9 Bipolar disorder, unspecified; I48.0 Paroxysmal atrial fibrillation; F10.10 Alcohol abuse, uncomplicated; Z79.52 Long term (current) use of systemic steroids; Z79.01 Long term (current) use of anticoagulants; Z79.899 Other long term (current) drug therapy; Z88.0 Allergy status to penicillin
CPT/HCPCS: 0241U; 71046; 80053; 84484; 85025; 93005; 93010; 99285-25; J7030

== ENCOUNTER → 2023-05-30 | Outpatient (CLI) | payer MEDICARE ==
[2023-05-30 19:42] LABS: BASOPHILS ABSOLUTE AUTO 0.07 K/mm3 (0.00-0.23); BASOPHILS PERCENT AUTO 1 % (0-2); EOSINOPHILS ABSOLUTE AUTO 0.02 K/mm3 (0.00-0.68); EOSINOPHILS PERCENT AUTO 0 % (0-6); Hematocrit 42.6 % (33.0-51.0); Hemoglobin 14.8 g/dL (11.5-16.0); IMMATURE GRAN ABSOLUTE AUTO 0.06 K/mm3 (0.00-0.10); IMMATURE GRAN PERCENT AUTO 0 % (0-1); LYMPHOCYTES PERCENT AUTO 17 % (21-46); MONOCYTES ABSOLUTE AUTO 1.44 K/mm3 (0.16-1.47); MONOCYTES PERCENT AUTO 10 % (4-13); Mean Corpuscular HGB 33.2 pg (26.0-34.0); Mean Corpuscular HGB Conc 34.7 g/dL (31.5-36.5); Mean Corpuscular Volume 96 fL (80-100); Mean Platelet Volume 10.3 fL (9.1-12.4); NEUTROPHILS ABSOLUTE AUTO 9.89 K/mm3 (1.96-9.15); NEUTROPHILS PERCENT AUTO 71 % (41-73); Platelet Count 352 K/mm3 (150-400); RDW Coefficient Variation 12.5 % (11.7-14.2); Red Blood Cell Count 4.46 M/mm3 (3.80-5.20); White Blood Cell Count 13.88 K/mm3 (4.00-11.30)
[2023-05-30 20:18] LABS: Albumin, Blood 2.8 g/dL (3.4-5.0); Albumin/Globulin Ratio 0.8 (0.8-1.8); Bilirubin, Total 1.1 mg/dL (0.1-1.0); Bun/Creatinine Ratio 17.9 (12.0-20.0); Creatinine, Blood 1.34 mg/dL (0.40-1.00); Free Thyroxine 1.37 ng/dL (0.70-1.60); Globulin, Blood 3.7 g/dL (2.2-4.0); Potassium, Blood 2.6 mmol/L (3.5-5.5); Thyroid Stimulating Hormone 1.2 uIU/mL (0.360-4.800); Total Protein, Blood 6.5 g/dL (6.4-8.2)
== END | disposition home or self-care (01) ==
LOC: LAB SHORT 17:37 → LAB 17:37
PROVIDERS: Nurse Practitioner Family
DX: E03.9 Hypothyroidism, unspecified (principal); I10 Essential (primary) hypertension
CPT/HCPCS: 80053; 84439; 84443; 85025

== ENCOUNTER → 2023-06-07 | Outpatient (CLI) | payer MEDICARE ==
[2023-06-07 15:08] LABS: Source, Urine Clean Catch
[2023-06-07 16:18] LABS: Appearance, Urine Cloudy (Clear); Bilirubin, Urine Neg (Neg); Blood, Urine 2+ (Neg); Color, Urine Yellow (P-Yellow); Glucose Qualitative, Urine Neg (Neg); Ketones, Urine Neg (Neg); Leukocyte Esterase, Urine 3+ (Neg); Nitrite, Urine Neg (Neg); Protein, Urine 2+ (Neg); Specific Gravity, Urine 1.025 (1.003-1.022); Urobilinogen, Urine 1+ (Normal)
[2023-06-07 16:36] LABS: Bacteria Many /hpf; Red Blood Cells, Urine 0-2 /hpf (0-2); Squamous Epithelial Cells Few /hpf (Few); White Blood Cells, Urine 50-100 /hpf (0-5)
== END | disposition home or self-care (01) ==
LOC: LAB SHORT 15:05 → LAB 15:05
PROVIDERS: Nurse Practitioner Family
DX: N39.0 Urinary tract infection, site not specified (principal)
CPT/HCPCS: 81001; 87077; 87086; 87186

== ENCOUNTER 2023-11-09 13:34 | Emergency (ER) | payer MEDICARE ==
[~2023-11-09] VITALS: Ht 165.1 cm; Wt 90.7 kg
[2023-11-09] MEDS ORDERED: Ipratropium/Albuterol SulF 2.5-0.5MG/3 ML Amp INH ONE (14:30)
[2023-11-09] MEDS ORDERED: MethylPREDNISolone Sod Succ 125 MG Vial IV ONE (14:30)
[2023-11-09 14:37] LABS: BASOPHILS ABSOLUTE AUTO 0.02 K/mm3 (0.00-0.23); BASOPHILS PERCENT AUTO 1 % (0-2); EOSINOPHILS ABSOLUTE AUTO 0.03 K/mm3 (0.00-0.68); EOSINOPHILS PERCENT AUTO 1 % (0-6); Hemoglobin 14.9 g/dL (11.5-16.0); IMMATURE GRAN ABSOLUTE AUTO 0.01 K/mm3 (0.00-0.10); IMMATURE GRAN PERCENT AUTO 0 % (0-1); LYMPHOCYTES ABSOLUTE AUTO 1.48 K/mm3 (0.84-5.20); LYMPHOCYTES PERCENT AUTO 36 % (21-46); MONOCYTES ABSOLUTE AUTO 0.52 K/mm3 (0.16-1.47); MONOCYTES PERCENT AUTO 13 % (4-13); Mean Corpuscular HGB 34.4 pg (26.0-34.0); Mean Corpuscular HGB Conc 33.9 g/dL (31.5-36.5); Mean Corpuscular Volume 102 fL (80-100); Mean Platelet Volume 9.9 fL (9.1-12.4); NEUTROPHILS ABSOLUTE AUTO 2.07 K/mm3 (1.96-9.15); NEUTROPHILS PERCENT AUTO 50 % (41-73); Platelet Count 190 K/mm3 (150-400); RDW Coefficient Variation 13.9 % (11.7-14.2); RDW Standard Deviation 51.8 fL (35.1-46.3); Red Blood Cell Count 4.33 M/mm3 (3.80-5.20); White Blood Cell Count 4.13 K/mm3 (4.00-11.30)
[2023-11-09 14:48] LABS: Albumin, Blood 3.6 g/dL (3.4-5.0); Albumin/Globulin Ratio 0.9 (0.8-1.8); Bilirubin, Total 0.6 mg/dL (0.1-1.0); Bun/Creatinine Ratio 11.1 (12.0-20.0); Calcium, Blood 8.7 mg/dL (8.5-10.1); Creatinine, Blood 0.81 mg/dL (0.40-1.00); Potassium, Blood 3.8 mmol/L (3.5-5.5); Total Protein, Blood 7.6 g/dL (6.4-8.2)
[2023-11-09 14:59] LABS: Source, Urine Clean Catch
[2023-11-09] MEDS ORDERED: MIRT15ST PO (15:06)
[2023-11-09] MEDS ORDERED: K-TAB ER20 ME1 PO (15:06)
[2023-11-09 15:08] LABS: Bilirubin, Urine Neg (Neg); Blood, Urine 1+ (Neg); Glucose Qualitative, Urine Neg (Neg); Ketones, Urine Neg (Neg); Leukocyte Esterase, Urine Neg (Neg); Nitrite, Urine Neg (Neg); Protein, Urine Neg (Neg); Specific Gravity, Urine 1.015 (1.003-1.022); Urobilinogen, Urine NORM (Normal)
[2023-11-09] MEDS ORDERED: FAMO20 PO (15:08)
[2023-11-09 15:20] LABS: Appearance, Urine Hazy (Clear); Bacteria Many /hpf; Color, Urine Pale Yellow (P-Yellow); Mucus Light (0-Heavy); Red Blood Cells, Urine 0-2 /hpf (0-2); Squamous Epithelial Cells Few /hpf (Few); White Blood Cells, Urine 0-2 /hpf (0-5)
[2023-11-09] MEDS ORDERED: Albuterol 2.5 MG/3 ML VIAL INH SCH (15:50)
[2023-11-09 15:58] LABS: Influenza A, PCR NEGATIVE (NEGATIVE); Influenza B, PCR NEGATIVE (NEGATIVE); Resp Syncytial Virus, PCR NEGATIVE (NEGATIVE)
[2023-11-09 16:11] LABS: SARS-Cov-2 (COVID-19) PCR, MMC POSITIVE (NEGATIVE)
[2023-11-09] MEDS ORDERED: RX PP Nirmatrelvir/Ritonavir (Paxlovid) 1 CO-PACKAGE (30 Tabs) UD ONE (17:15)
[2023-11-09] MEDS ORDERED: ALBU2.5V5 INH (17:16)
[2023-11-09] MEDS ORDERED: Prednisone20 MG PO (17:16)
[2023-11-09] MEDS ORDERED: PAXLOVID 300-11 EAC1 PO (17:49)
[2023-11-09 17:51] VITALS: BP 164/101
== END 2023-11-09 17:52 | disposition home or self-care (01) ==
LOC: ER 13:34
PROVIDERS: Emergency Medicine
DX: U07.1 COVID-19 (principal); J44.1 Chronic obstructive pulmonary disease with (acute) exacerbation; I13.0 Hypertensive heart and chronic kidney disease with heart failure and stage 1 through stage 4 chronic kidney disease, or unspecified chronic kidney disease; I50.9 Heart failure, unspecified; N18.9 Chronic kidney disease, unspecified; E03.9 Hypothyroidism, unspecified; I48.0 Paroxysmal atrial fibrillation; Z88.0 Allergy status to penicillin; Z79.899 Other long term (current) drug therapy; Z79.4 Long term (current) use of insulin; Z79.52 Long term (current) use of systemic steroids
CPT/HCPCS: 0241U; 36415; 71045; 80053; 81001; 83880; 84484; 85025; 87077; 87086; 87186; 93005; 93010; 94640; 94644; 94664; 96374; 99285-25; J2919

== ENCOUNTER → 2023-12-22 | Outpatient (CLI) | payer MEDICARE ==
[~2023-12-22] MED LIST changes: +FAMO20 PO; +K-TAB ER20 ME1 PO; +MIRT15ST PO; +PAXLOVID 300-11 EAC1 PO
[2023-12-22 19:27] LABS: Adenovirus F 40/41 Not Detected (NOT DETECT); Astrovirus Not Detected (NOT DETECT); Campylobacter Sp Not Detected (NOT DETECT); Cryptosporidium Not Detected (NOT DETECT); Cyclospora Cayetanensis Not Detected (NOT DETECT); E. Coli O157 Not Detected (NOT DETECT); Entamoeba Histolytica Not Detected (NOT DETECT); Enteroaggregative E. coli-EAEC Not Detected (NOT DETECT); Enteropathogenic E. coli-EPEC Not Detected (NOT DETECT); Enterotoxigenic E. coli-ETEC Not Detected (NOT DETECT); Giardia Lamblia Not Detected (NOT DETECT); Norovirus GI/GII Not Detected (NOT DETECT); Plesiomonas Shigelloides Not Detected (NOT DETECT); Rotavirus A Not Detected (NOT DETECT); Salmonella Sp Not Detected (NOT DETECT); Sapovirus Not Detected (NOT DETECT); Shiga Toxin-prod E. coli-STEC Not Detected (NOT DETECT); Shigella/Enteroin E. coli-EIEC Not Detected (NOT DETECT); Vibrio Cholerae Not Detected (NOT DETECT); Vibrio Sp Not Detected (NOT DETECT); Yersinia Enterocolitica Not Detected (NOT DETECT)
== END | disposition home or self-care (01) ==
LOC: LAB SHORT 09:15 → LAB 09:15
PROVIDERS: Chiropractor
DX: K52.9 Noninfective gastroenteritis and colitis, unspecified (principal)
CPT/HCPCS: 87507

== ENCOUNTER → 2024-01-04 | Outpatient (CLI) | payer MEDICARE ==
[2024-01-04 17:17] LABS: BASOPHILS ABSOLUTE AUTO 0.03 K/mm3 (0.00-0.23); BASOPHILS PERCENT AUTO 0 % (0-2); EOSINOPHILS ABSOLUTE AUTO 0.01 K/mm3 (0.00-0.68); EOSINOPHILS PERCENT AUTO 0 % (0-6); Hematocrit 47.1 % (33.0-51.0); IMMATURE GRAN ABSOLUTE AUTO 0.02 K/mm3 (0.00-0.10); IMMATURE GRAN PERCENT AUTO 0 % (0-1); LYMPHOCYTES ABSOLUTE AUTO 1.25 K/mm3 (0.84-5.20); LYMPHOCYTES PERCENT AUTO 16 % (21-46); MONOCYTES ABSOLUTE AUTO 0.66 K/mm3 (0.16-1.47); MONOCYTES PERCENT AUTO 8 % (4-13); Mean Corpuscular HGB 34.2 pg (26.0-34.0); Mean Corpuscular Volume 101 fL (80-100); Mean Platelet Volume 9.2 fL (9.1-12.4); NEUTROPHILS ABSOLUTE AUTO 5.92 K/mm3 (1.96-9.15); NEUTROPHILS PERCENT AUTO 75 % (41-73); Platelet Count 237 K/mm3 (150-400); RDW Coefficient Variation 13.9 % (11.7-14.2); Red Blood Cell Count 4.68 M/mm3 (3.80-5.20); White Blood Cell Count 7.89 K/mm3 (4.00-11.30)
[2024-01-04 17:32] LABS: Albumin, Blood 3.5 g/dL (3.4-5.0); Albumin/Globulin Ratio 0.9 (0.8-1.8); Bilirubin, Total 1.2 mg/dL (0.1-1.0); Bun/Creatinine Ratio 10.7 (12.0-20.0); Calcium, Blood 9.1 mg/dL (8.5-10.1); Creatinine, Blood 1.21 mg/dL (0.40-1.00); Globulin, Blood 3.8 g/dL (2.2-4.0); Potassium, Blood 4.1 mmol/L (3.5-5.5); Total Protein, Blood 7.3 g/dL (6.4-8.2)
== END ==
LOC: LAB SHORT 17:13 → LAB 17:13
PROVIDERS: Physician Assistant Medical
DX: R11.2 Nausea with vomiting, unspecified (principal); R19.7 Diarrhea, unspecified
CPT/HCPCS: 80053; 83690; 85025

== ENCOUNTER → 2024-05-22 | Outpatient (CLI) | payer MEDICARE ==
[2024-05-22 19:17] LABS: Calcium, Blood 8.9 mg/dL (8.5-10.1); Creatinine, Blood 0.8 mg/dL (0.40-1.00)
== END | disposition home or self-care (01) ==
LOC: LAB 15:10 → LAB SHORT 15:10
PROVIDERS: Nurse Practitioner Family
DX: I50.9 Heart failure, unspecified (principal); Z95.810 Presence of automatic (implantable) cardiac defibrillator; Z79.01 Long term (current) use of anticoagulants
CPT/HCPCS: 80048

== ENCOUNTER 2024-05-30 18:07 | Emergency (ER) | payer MEDICARE ==
[~2024-05-30] VITALS: Ht 165.1 cm; Wt 90.7 kg
[2024-05-30 18:50] VITALS: BP 103/82
== END 2024-05-30 20:15 | disposition left against medical advice (07) ==
LOC: ER 18:07
DX: T78.40XA Allergy, unspecified, initial encounter (principal); Z53.21 Procedure and treatment not carried out due to patient leaving prior to being seen by health care provider; X58.XXXA Exposure to other specified factors, initial encounter

== ENCOUNTER → 2025-03-07 | Outpatient (CLI) | payer MEDICARE, OTHER ==
[2025-03-07 19:52] LABS: BASOPHILS ABSOLUTE AUTO 0.04 K/mm3 (0.00-0.23); BASOPHILS PERCENT AUTO 1 % (0-2); EOSINOPHILS ABSOLUTE AUTO 0.14 K/mm3 (0.00-0.68); EOSINOPHILS PERCENT AUTO 2 % (0-6); Hematocrit 41.9 % (33.0-51.0); Hemoglobin 13.0 g/dL (11.5-16.0); IMMATURE GRAN ABSOLUTE AUTO 0.02 K/mm3 (0.00-0.10); IMMATURE GRAN PERCENT AUTO 0 % (0-1); LYMPHOCYTES ABSOLUTE AUTO 2.57 K/mm3 (0.84-5.20); LYMPHOCYTES PERCENT AUTO 31 % (21-46); MONOCYTES ABSOLUTE AUTO 0.61 K/mm3 (0.16-1.47); MONOCYTES PERCENT AUTO 7 % (4-13); Mean Corpuscular HGB Conc 31.0 g/dL (31.5-36.5); Mean Corpuscular Volume 93 fL (80-100); NEUTROPHILS ABSOLUTE AUTO 5.05 K/mm3 (1.96-9.15); NEUTROPHILS PERCENT AUTO 60 % (41-73); NRBC ABSOLUTE 0.00 K/mm3 (0.00-0.02); NRBC Auto 0.0 /100 WBC (0.0-0.2); Platelet Count 264 K/mm3 (150-400); RDW Coefficient Variation 14.1 % (11.7-14.2); RDW Standard Deviation 47.8 fL (35.1-46.3)
[2025-03-07 20:08] LABS: Anion Gap 9.0 mmol/L (3-11); Blood Urea Nitrogen 12.0 mg/dL (8-24); CO2, Blood 28.0 mmol/L (21-32); Calcium, Blood 8.8 mg/dL (8.5-10.1); Chloride, Blood 104.0 mmol/L (98-108); Creatinine, Blood 0.85 mg/dL (0.40-1.00); Glucose, Blood 87.0 mg/dL (70-99); Potassium, Blood 4.0 mmol/L (3.5-5.5); Sodium, Blood 137.0 mmol/L (136-145); Thyroid Stimulating Hormone 2.11 uIU/mL (0.360-4.800)
== END ==
LOC: LAB SHORT 18:41 → LAB 18:41
PROVIDERS: Nurse Practitioner Family
DX: E03.9 Hypothyroidism, unspecified (principal); E55.9 Vitamin D deficiency, unspecified; I10 Essential (primary) hypertension; J44.9 Chronic obstructive pulmonary disease, unspecified
CPT/HCPCS: 80048; 82306; 84443; 85025